=== PATIENT | female | born 1950 | race Caucasian/White ===

== ENCOUNTER 2020-09-30 09:18 | Outpatient (REF) | payer MEDICARE, SELFPAY ==
--- NOTE | 2020-09-30 | MM_ITS ---
EXAMINATION: MM SCREENING DIGITAL BREAST TOMOSYNTHESIS, BILATERAL CLINICAL INFORMATION: Screening. Asymptomatic. COMPARISON: Mammography: 02/24/2020 and studies dating back to 04/20/2012. TECHNIQUE: Digital breast tomosynthesis is performed in both the craniocaudal and mediolateral oblique views along with computer-aided detection (CAD). Synthesized 2D images are generated from the tomosynthesis. FINDINGS: There are scattered areas of fibroglandular density (ACR BI-RADS breast composition Category b). There is a stable region of architectural distortion seen within the superior aspect of the right breast. There is a stable region of postsurgical change within the upper outer aspect of the left breast as well as axillary surgery. Some skin thickening is seen within the left breast likely related to radiation therapy. No new abnormal dominant mass or suspicious grouping of microcalcifications identified. MM/MM tomosynthesis screening BI IMPRESSION: There are no significant changes from prior study. ASSESSMENT: BI-RADS 2: Benign. RECOMMENDATION: Routine annual mammography screening. This patient's information was entered into a reminder system with a target due date for their next mammogram.
== END 2020-09-30 09:19 | disposition home or self-care (01) ==
LOC: HO.MAMMO 09:18
PROVIDERS: PCP Internal Medicine; Visit Provider Internal Medicine
DX: Z12.31 Encounter for screening mammogram for malignant neoplasm of breast (principal)
CPT/HCPCS: 77063; 77067

== ENCOUNTER 2020-10-05 11:04 | Outpatient (REF) | payer MEDICARE, SELFPAY ==
[2020-10-05 12:14] LABS: Glucose Fasting 132 mg/dL (60-99)
[2020-10-05 12:26] LABS: Estimated Average Glucose 157 mg/dL; Hemoglobin A1c % 7.1 %
== END 2020-10-05 11:05 | disposition home or self-care (01) ==
LOC: HO.10HDL 11:04
PROVIDERS: Visit Provider Internal Medicine
DX: E11.9 Type 2 diabetes mellitus without complications (principal)
CPT/HCPCS: 36415; 82947; 83036

== ENCOUNTER 2021-02-05 09:36 | Outpatient (REF) | payer MEDICARE, SELFPAY ==
[2021-02-05 10:12] LABS: MANUAL DIFF FLAG NO
[2021-02-05 10:18] LABS: Basophils Absolute Auto 0.1 X10*3/uL (0.0-0.2); Basophils Percent Auto 0.9 % (0-2); Eosinophils Absolute Auto 0.1 X10*3/uL (0.0-0.4); Eosinophils Percent Auto 2.6 % (0-4); Hematocrit 37.5 % (37-47); Hemoglobin 12.5 g/dl (12.0-16.0); Imm Gran Abs Auto 0.01 X10*3/uL (0.00-0.03); Imm Gran Pct Auto 0.2 % (0.0-0.4); Lymphocytes Absolute Auto 1.4 X10*3/uL (1.2-4.9); Lymphocytes Percent Auto 26.1 % (20-40); Mean Corpuscular HGB Conc 33.3 g/dl (31.0-35.0); Mean Corpuscular Hemoglobin 29.3 pg (27.0-33.0); Mean Corpuscular Volume 87.8 fL (80-98); Mean Platelet Volume 9.9 fL (9.4-12.3); Monocytes Absolute Auto 0.4 X10*3/uL (0.1-1.2); Monocytes Percent Auto 8.1 % (2-11); Neutrophils Absolute Auto 3.4 X10*3/uL (2.0-8.3); Neutrophils Percent Auto 62.1 % (45-73); Platelet Count 258 X10*3/uL (160-400); Red Blood Count 4.27 X10*6/uL (4.20-5.50); Red Cell Distribution Width 13.6 % (11.0-16.0); White Blood Count 5.5 X10*3/uL (4.8-10.8)
[2021-02-05 10:29] LABS: Estimated Average Glucose 151 mg/dL; Hemoglobin A1c % 6.9 %
[2021-02-05 10:41] LABS: Glucose Urine UA NEG (NEG); Leukocyte Esterase Urine NEG (NEG); Nitrite Urine NEG (NEG); PH 5.5 (5.0-8.0); Specific Gravity - Urine >= 1.030 (1.005-1.025); Urine Blood NEG (NEG); Urine Ketones NEG (NEG); Urine Protein NEG (NEG-TRACE)
[2021-02-05 10:42] LABS: Appearance Urine HAZY; Color Urine YELLOW
[2021-02-05 10:53] LABS: Alanine Aminotransferase 13 U/L (0-31); Albumin Level 4.2 g/dL (3.5-5.0); Alkaline Phosphatase 74 U/L (39-117); Anion Gap 12 (12-20); Aspartate Amino Transferase 11 U/L (5-31); Bilirubin Total 1.1 mg/dL (0.0-1.0); Blood Urea Nitrogen 17 mg/dL (9-16); Calcium 9.6 mg/dL (8.4-10.2); Carbon Dioxide 27 mmol/L (22-29); Chloride 105 mmol/L (96-108); Cholesterol 142 mg/dL; Estimated Glomerular Filt Rate > 60; Glucose Fasting 117 mg/dL (60-99); HDL Cholesterol 47 mg/dL; LDL Cholesterol Calculated 71 mg/dl; Potassium 3.7 mmol/L (3.3-5.1); Sodium 140 mmol/L (135-145); Total Protein 6.8 g/dL (6.5-8.0); Triglycerides 124 mg/dL
[2021-02-05 11:15] LABS: Vitamin D 25-OH Total 61.4 ng/mL (>30)
[2021-02-05 11:28] LABS: Reflex LDLD? No
[2021-02-05 12:05] LABS: Creatinine Urine 199.37 mg/dL
== END 2021-02-05 09:37 | disposition home or self-care (01) ==
LOC: HO.LAB 09:36
PROVIDERS: PCP Internal Medicine; Visit Provider Internal Medicine
DX: Z00.00 Encounter for general adult medical examination without abnormal findings (principal); I10 Essential (primary) hypertension; E11.9 Type 2 diabetes mellitus without complications; E78.00 Pure hypercholesterolemia, unspecified; E55.9 Vitamin D deficiency, unspecified
CPT/HCPCS: 36415; 80053; 80061; 81003; 82043; 82306; 83036; 85025

== ENCOUNTER 2021-05-12 09:05 | Outpatient (REF) | payer MEDICARE, SELFPAY ==
--- NOTE | ~2021-05-12 | MM_ITS ---
EXAMINATION: BONE DENSITOMETRY CLINICAL INDICATION: Asymptomatic menopausal state. COMPARISON: Previous BD dated 09/19/2018 and baseline BD dated 09/06/2005. TECHNIQUE: Using a [employer] DXA System (software version: 13.1) manufactured by [employer], dual-energy x-ray absorptiometry was performed of the lumbar spine and left hip. The images are of good technical quality. Summary results are attached. FINDINGS: AP SPINE L1-L4: Current: BMD 1.323 g/cm2, Z-score 1.8, T-score 1.2, normal, 4.8% increase from previous, 7.5% increase from baseline (<5% change is not significant). Prior: BMD 1.263 g/cm2. Baseline: BMD 1.231 g/cm2. LEFT FEMUR, NECK: Current: BMD 1.068 g/cm2, Z-score 1.2, T-score 0.2, normal. Prior: BMD 1.041 g/cm2. Baseline: BMD 1.107 g/cm2. LEFT FEMUR, TOTAL: Current: BMD 1.156 g/cm2, Z-score 1.8, T-score 1.2, normal, 2.1% increase from previous, 10.4% decrease from baseline (<5% change is not significant). Prior: BMD 1.132 g/cm2. Baseline: BMD 1.290 g/cm2. IDENTIFIED RISK FACTORS: Menopause. HISTORY OF FRACTURE: None listed. MEDICATIONS: Calcium supplements or multivitamin, vitamin D. MM/XR DEXA axial skeleton IMPRESSION: 1. DIAGNOSIS: Normal bone density based on the lowest T-score value of 0.2 in the femoral neck applying World Health Organization criteria. 2. 10-YEAR FRACTURE RISK PREDICTION, FRAX: Major osteoporotic fracture (clinical spine, forearm, hip or shoulder) 6.2%. Hip fracture 0.2%. 3. Treatment Recommendations: NOF guidelines recommend consideration for treatment in postmenopausal women and men age 50 and older presenting with the following: -A hip or vertebral (clinical or morphometric) fracture. -T-score less than or equal to -2.5 at the femoral neck or spine after appropriate evaluation to exclude secondary causes. -Low bone mass at the hip or spine and a 10-year fracture probability by FRAX of greater than or equal to 3% for hip fracture or greater than or equal to 20% for major osteoporotic fracture based on the [place] adapted WHO algorithm. 4. Other Recommendations: All treatment decisions require clinical judgment and consideration of individual patient factors, including patient preferences, comorbidities, previous drug use, risk factors not captured in the FRAX model (e.g. frailty, falls, vitamin D deficiency, increased bone turnover, interval significant decline in bone density) and possible under or overestimation of fracture risk by FRAX. FUTURE SCAN RECOMMENDATION: People with diagnosed cases of osteoporosis or at high risk for fracture should have regular bone mineral density tests. For patients eligible for Medicare, routine testing is allowed once every 2 years. The testing frequency can be increased to one year for patients who have rapidly progressing disease, those who are receiving or discontinuing medical therapy to restore bone mass, or have additional risk factors.
== END 2021-05-12 09:06 | disposition home or self-care (01) ==
LOC: HO.MAMMO 09:05
PROVIDERS: Visit Provider Internal Medicine
DX: Z13.820 Encounter for screening for osteoporosis (principal); Z78.0 Asymptomatic menopausal state; Z79.899 Other long term (current) drug therapy
CPT/HCPCS: 77080

== ENCOUNTER 2021-07-12 10:21 | Outpatient (REF) | payer MEDICARE, SELFPAY ==
[2021-07-12 13:41] LABS: MANUAL DIFF FLAG NO
[2021-07-12 13:43] LABS: Basophils Absolute Auto 0.1 X10*3/uL (0.0-0.2); Basophils Percent Auto 1.2 % (0-2); Eosinophils Absolute Auto 0.3 X10*3/uL (0.0-0.4); Eosinophils Percent Auto 5.5 % (0-4); Hematocrit 40.7 % (37.0-47.0); Hemoglobin 13.8 g/dl (12.0-16.0); Imm Gran Abs Auto 0.02 X10*3/uL (0.00-0.03); Imm Gran Pct Auto 0.3 % (0.0-0.4); Lymphocytes Absolute Auto 1.2 X10*3/uL (1.2-4.9); Mean Corpuscular HGB Conc 33.9 g/dl (31.0-35.0); Mean Corpuscular Hemoglobin 30.1 pg (27.0-33.0); Mean Corpuscular Volume 88.7 fL (80.0-98.0); Mean Platelet Volume 10.3 fL (9.4-12.3); Monocytes Absolute Auto 0.7 X10*3/uL (0.1-1.2); Monocytes Percent Auto 11.2 % (2-11); Neutrophils Absolute Auto 3.54 x10*3/uL (2.0-8.3); Neutrophils Percent Auto 60.8 % (45-73); Platelet Count 273 X10*3/uL (160-400); Red Blood Count 4.59 X10*6/uL (4.20-5.50); Red Cell Distribution Width 13.5 % (11.0-16.0); White Blood Count 5.8 X10*3/uL (4.8-10.8)
[2021-07-12 14:01] LABS: Appearance Urine HAZY; Color Urine DK YELLOW; Glucose Urine UA NEG (NEG); Leukocyte Esterase Urine TRACE (NEG); Nitrite Urine NEG (NEG); Specific Gravity - Urine 1.025 (1.005-1.025); Urine Blood NEG (NEG); Urine Ketones 5 MG/DL (NEG); Urine Protein NEG (NEG-TRACE)
[2021-07-12 14:07] LABS: Alanine Aminotransferase 22 U/L (0-31); Albumin Level 4.3 g/dL (3.5-5.0); Alkaline Phosphatase 79 U/L (39-117); Anion Gap 14 (12-20); Aspartate Amino Transferase 16 U/L (5-31); Blood Urea Nitrogen 16 mg/dL (9-16); Calcium 9.6 mg/dL (8.4-10.2); Carbon Dioxide 26 mmol/L (22-29); Chloride 105 mmol/L (96-108); Cholesterol 146 mg/dL; Estimated Glomerular Filt Rate > 60; Glucose Fasting 128 mg/dL (60-99); HDL Cholesterol 46 mg/dL; LDL Cholesterol Calculated 74 mg/dl; Potassium 4.1 mmol/L (3.3-5.1); Sodium 141 mmol/L (135-145); Total Protein 6.9 g/dL (6.5-8.0); Triglycerides 132 mg/dL
[2021-07-12 14:08] LABS: Estimated Average Glucose 151 mg/dL; Hemoglobin A1c % 6.9 %
[2021-07-12 14:14] LABS: Microalbum/Creatinine Ratio Ur 4.7 ug/mg cr
[2021-07-12 14:19] LABS: Squamous Epithelial Cell Urine 2+ /LPF
[2021-07-12 14:20] LABS: Bacteria Urine 1+ /LPF; Mucus Urine 3+ /LPF; RBC Urine 0 /HPF (0)
== END 2021-07-12 10:22 | disposition home or self-care (01) ==
LOC: HO.10HDL 10:21
PROVIDERS: Visit Provider Internal Medicine
DX: Z00.00 Encounter for general adult medical examination without abnormal findings (principal); I10 Essential (primary) hypertension; E11.9 Type 2 diabetes mellitus without complications; E78.00 Pure hypercholesterolemia, unspecified; E55.9 Vitamin D deficiency, unspecified
CPT/HCPCS: 36415; 80053; 80061; 81001; 81003; 82043; 82306; 83036; 85025

== ENCOUNTER 2022-01-24 09:09 | Outpatient (REF) | payer MEDICARE, SELFPAY ==
[2022-01-24 10:45] LABS: Estimated Average Glucose 154 mg/dL
[2022-01-24 10:53] LABS: Alanine Aminotransferase 22 U/L (0-31); Albumin Level 4.1 g/dL (3.5-5.0); Alkaline Phosphatase 85 U/L (39-117); Aspartate Amino Transferase 15 U/L (5-31); Bilirubin Direct 0.4 mg/dL (0.0-0.5); Bilirubin Total 0.9 mg/dL (0.0-1.0); Cholesterol 159 mg/dL; Glucose Fasting 143 mg/dL (60-99); HDL Cholesterol 50 mg/dL; LDL Cholesterol Calculated 77 mg/dl; Total Protein 6.8 g/dL (6.5-8.0); Triglycerides 160 mg/dL
[2022-01-24 10:57] LABS: Reflex LDLD? No
== END 2022-01-24 09:10 | disposition home or self-care (01) ==
LOC: HO.LAB 09:09
PROVIDERS: PCP Internal Medicine; Visit Provider Internal Medicine
DX: E11.9 Type 2 diabetes mellitus without complications (principal); E78.00 Pure hypercholesterolemia, unspecified
CPT/HCPCS: 36415; 80061; 80076; 82947; 83036

== ENCOUNTER 2022-01-26 11:58 | Day surgery (SDC) | payer MEDICARE, SELFPAY ==
[2022-01-21 13:42] VITALS: BMI 35.9
--- NOTE | 2022-01-25 10:30 | P.CONAN_ITS ---
Documented by User: Oralia Hodge NP 01/25/22 10:31 HPI - Anesthesia Eval Consult details Narrative: 71yo F for Colonoscopy [facility] Past Medical History Medical History Breast cancer DM type 2 (diabetes mellitus, type 2) HTN (hypertension) Surgical History Surgical History History of partial mastectomy of left breast Hx of colonoscopy Social History Social History Patient Tobacco Use Status: Never used Tobacco Use of substances other than those prescribed or required for medical reasons: No Are you DNR?: No Advance Directives: No Advance Directives Information Provided: Yes Meds Allergies Allergy/AdvReac Type Severity Reaction Status Date / Time No Known Allergies Allergy Verified 01/21/22 13:39 Home Medications Medication Instructions Recorded Confirmed Last Taken Type aspirin 81 mg tablet,delayed 81 mg PO DAILY 01/21/22 01/26/22 01/22/22 History release atorvastatin 20 mg tablet 1 tab PO DAILY 01/21/22 01/21/22 Unknown History lisinopril 10 1 tab PO DAILY 01/21/22 01/21/22 Unknown History mg-hydrochlorothiazide 12.5 mg tablet metformin 500 mg tablet 500 mg PO BID 01/21/22 01/21/22 Unknown History multivitamin 1 tab PO DAILY 01/21/22 01/21/22 Unknown History Exam Exam Date and Time: January 25, 2022 1030 Height,Weight and Vital Signs: Height 5 ft 5 in Weight 97.976 kg Assessment and Plan Assessment Anesthesia Assessment: Chart Reviewed Documented by User: Kel Bowman MD 01/26/22 13:09 [facility] Past Medical History Medical History Breast cancer DM type 2 (diabetes mellitus, type 2) HTN (hypertension) Family History Family history of problems with anesthesia: No Surgical History Surgical History History of partial mastectomy of left breast Hx of colonoscopy History of Problems with Anesthesia: No Social History Social History Patient Tobacco Use Status: Never used Tobacco Use of substances other than those prescribed or required for medical reasons: No Are you DNR?: No Advance Directives: No Advance Directives Information Provided: Yes Meds Allergies Allergy/AdvReac Type Severity Reaction Status Date / Time No Known Allergies Allergy Verified 01/21/22 13:39 Home Medications Medication Instructions Recorded Confirmed Last Taken Type aspirin 81 mg tablet,delayed 81 mg PO DAILY 01/21/22 01/26/22 01/22/22 History release atorvastatin 20 mg tablet 1 tab PO DAILY 01/21/22 01/21/22 Unknown History lisinopril 10 1 tab PO DAILY 01/21/22 01/21/22 Unknown History mg-hydrochlorothiazide 12.5 mg tablet metformin 500 mg tablet 500 mg PO BID 01/21/22 01/21/22 Unknown History multivitamin 1 tab PO DAILY 01/21/22 01/21/22 Unknown History Exam Airway Mallampati Class: II TM Dist: >3cm Neck ROM: Full Loose/Missing/Broken Teeth: No Heart: [id number] Lungs: cta b/l Assessment and Plan Assessment Anesthesia Assessment: Anesthesia Plan Discussed Final Anesthetic Review Family History of Problems with Anesthesia: No History of Problems with Anesthesia: No NPO: Yes ASA Class: III Final Preanesthetic Review: No Changes in Pt Med Stat, Meds/Allgs Chart Reviewed, Consent Obtained/Reviewed and Anes Risks/Benef Reviewed Patient Risk: Intermediate Procedure Risk: Intermediate Assessment/Block/Sedation in SS: Assess/Block/Sedation-SS Anesthetic Plan Anesthetic Plan: MAC: and Agree w/ Assess. and Plan Disposition: Standard PACU
[2022-01-26 12:34] VITALS: BMI 36.8
[2022-01-26 12:40] VITALS: BP 139/72; PULSE 88; RESP 16; TEMP 36.7; O2SAT 95
[2022-01-26] MEDS: Lactated Ringers 1,000 ML 100 ML IVCONT (12:45)
[2022-01-26 12:48] LABS: Glucose, Whole Blood 100 mg/dL (60-115)
--- NOTE | 2022-01-26 12:56 | PC.NURSE ---
Fleets enema given ( poor prep results reported by patient). Rturns from fleets are liquid and yellow/clear
[2022-01-26] MEDS: Sodium Phosphate,Mono-Dibasic 133 ML ENEMA PR (13:10)
--- NOTE | 2022-01-26 13:11 | MHC.SHP ---
Pre-Procedural Eval Section A Date of Service: 01/26/22 Section B Chief Complaint: screening Details of Present Illness: see h&p Relevant Family History (Specify if Yes): No Relevant Social History: None Present Medications: see Short Stay Collaborative assessment Medical History: No relevant PMH History of Previous Operations: No relevant previous surgery Allergies: Allergies Allergy/AdvReac Type Severity Reaction Status Date / Time No Known Allergies Allergy Verified 01/21/22 13:39 Review of Systems Sugical H&P ROS: Negative: Constitution, Cardiovascular, Respiratory, Neurological, Psychiatric, Hem-Onc, Allergic/Immunologic, Gastrointestinal, Genitourinary, Musculoskeletal, Integumentary, Endocrine and Eyes/Ears/Nose/Throat Exam Surgical H&P Exam: Normal: HEENT, Normal: Heart, Normal: Lungs, Normal: Extremities, Normal: Abdomen, Normal: Skin and Normal: Neurological Plan Diagnosis/Plan: Unchanged I have reviewed the history and physical and performed a pertinent physical examination on my patient. No changes have occurred unless specified.
--- NOTE | 2022-01-26 13:36 | HO.ANESPROP2 ---
[facility] Past Medical History Medical History Breast cancer DM type 2 (diabetes mellitus, type 2) HTN (hypertension) Family History Family history of problems with anesthesia: No Surgical History Surgical History History of partial mastectomy of left breast Hx of colonoscopy History of Problems with Anesthesia: No Social History Social History Patient Tobacco Use Status: Never used Tobacco Use of substances other than those prescribed or required for medical reasons: No Are you DNR?: No Advance Directives: No Advance Directives Information Provided: Yes Meds Allergies Allergy/AdvReac Type Severity Reaction Status Date / Time No Known Allergies Allergy Verified 01/21/22 13:39 Active Medications: Current Medications Acetaminophen (Acetaminophen 325 Mg Tablet) 650 mg PO ONCE PRN PRN Reason: Pain, Mild (Pain Scale 1-3) Lactated Ringer's (Lr) 1,000 mls @ 100 mls/hr IVCONT .Q10H ALEJANDRO Last Admin: 01/26/22 12:45 Dose: 100 mls/hr Documented by: Ondansetron HCl (Ondansetron Hcl 4 Mg/2 Ml Vial) 4 mg IVPUSH ONCE PRN PRN Reason: Nausea and Vomiting Home Medications Medication Instructions Recorded Confirmed Last Taken Type aspirin 81 mg tablet,delayed 81 mg PO DAILY 01/21/22 01/26/22 01/22/22 History release atorvastatin 20 mg tablet 1 tab PO DAILY 01/21/22 01/21/22 Unknown History lisinopril 10 1 tab PO DAILY 01/21/22 01/21/22 Unknown History mg-hydrochlorothiazide 12.5 mg tablet metformin 500 mg tablet 500 mg PO BID 01/21/22 01/21/22 Unknown History multivitamin 1 tab PO DAILY 01/21/22 01/21/22 Unknown History Exam Exam Date and Time: January 26, 2022 1336 Height,Weight and Vital Signs: Height 5 ft 4 in Weight 97.522 kg Last Vital Signs Temp 98.0 F 01/26/22 12:40 Pulse 88 01/26/22 12:40 Resp 16 01/26/22 12:40 BP 139/72 01/26/22 12:40 Pulse Ox 95 01/26/22 12:40 Pertinent Lab Results Pertinent Lab Results: Laboratory Tests 01/26/22 12:40 POC Glucose 100 Airway Mallampati Class: III TM Dist: >3cm Neck ROM: Full Assessment and Plan Final Anesthetic Review Family History of Problems with Anesthesia: No History of Problems with Anesthesia: No Final Preanesthetic Review: No Changes in Pt Med Stat, Meds/Allgs Chart Reviewed, Consent Obtained/Reviewed and Anes Risks/Benef Reviewed Patient Risk: Low Procedure Risk: Low Anesthetic Plan Anesthetic Plan: MAC: Disposition: Standard PACU
--- NOTE | 2022-01-26 13:56 | PM.OP ---
Brief Operative Note Date of Service: 01/26/22 Pre-op diagnosis: screening Post-op diagnosis: same (colon polyp) Procedure: colonoscopy Surgeon: Suraj Cabrera Anesthesia: MAC Was an Transportation Superintendent used for this Procedure?: No Estimated blood loss (mL): 2 Pathology: other (polyps x4) Condition: stable Disposition: PACU
[2022-01-26 14:03] VITALS: BP 150/90; PULSE 92; RESP 16; TEMP 37.2; O2SAT 95
[2022-01-26 14:06] VITALS: BP 120/54
[2022-01-26 14:18] VITALS: BP 122/65; PULSE 63; RESP 16; O2SAT 97
[2022-01-26 14:33] VITALS: BP 129/53; PULSE 66; RESP 16; O2SAT 98
[2022-01-26 14:55] VITALS: BP 133/55; PULSE 63; RESP 16; TEMP 36.9; O2SAT 95
--- NOTE | 2022-01-27 02:26 | OP_ITS ---
SURGEON: Suraj Cabrera MD INDICATIONS: Colon cancer screening and prior history of adenomatous colon polyps. PREOPERATIVE DIAGNOSIS: POSTOPERATIVE DIAGNOSIS: PROCEDURE PERFORMED: Colonoscopy to the terminal ileum with snare polypectomy and biopsy. ESTIMATED BLOOD LOSS: COMPLICATIONS: ANESTHESIA: ASSISTANTS: SPECIMENS: MEDICATIONS: Monitored anesthesia care. DESCRIPTION OF PROCEDURE: History and physical were performed. The risks and benefits of the procedure were explained to the patient. Informed consent was obtained. The patient was placed in the left lateral decubitus position. A digital rectal exam was performed, was found to be normal. The Olympus pediatric video colonoscope was introduced into the rectum and advanced to the cecum without difficulty. The cecum was identified by transillumination, palpation, and identification of ileocecal valve. Examination was performed. The scope was removed. She tolerated the procedure well, returned to recovery in stable condition. FINDINGS: The terminal ileum was normal. The visualized colonic mucosa was normal. The quality of the prep was good. Four polyps were identified and removed with a combination of snare polypectomy and biopsy forceps. These were located at 75 cm, 45 cm, and two in the rectum, none were bigger than 6 mm. Retroflexed examination showed small internal hemorrhoids. Moderate sigmoid diverticulosis was noted. IMPRESSION: Colon polyps. RECOMMENDATION: Follow up the biopsy results. MD GISELA Laguna/MICHAEL / [id number]
== END 2022-01-26 16:09 | disposition home or self-care (01) ==
PROVIDERS: PCP Internal Medicine; Visit Provider Internal Medicine Gastroenterology
PROC: 0DJD8ZZ Inspection of Lower Intestinal Tract, Via Natural or Artificial Opening Endoscopic (ICD-10-PCS; CPT 45378; principal; 2022-01-26 13:00)
DX: Z12.11 Encounter for screening for malignant neoplasm of colon (principal); Z86.010 Personal history of colon polyps; D12.4 Benign neoplasm of descending colon; D12.8 Benign neoplasm of rectum; K63.5 Polyp of colon; K57.30 Diverticulosis of large intestine without perforation or abscess without bleeding; K64.8 Other hemorrhoids; I10 Essential (primary) hypertension; E11.9 Type 2 diabetes mellitus without complications; Z85.3 Personal history of malignant neoplasm of breast; Z79.84 Long term (current) use of oral hypoglycemic drugs; Z79.899 Other long term (current) drug therapy; Z79.82 Long term (current) use of aspirin
CPT/HCPCS: 45385; 45380; 82947; 88305

== ENCOUNTER 2022-07-19 10:30 | Outpatient (REF) | payer MEDICARE, SELFPAY ==
[2022-07-19 13:51] LABS: MANUAL DIFF FLAG NO
[2022-07-19 13:59] LABS: Basophils Absolute Auto 0.1 X10*3/uL (0.0-0.2); Basophils Percent Auto 1.1 % (0-2); Eosinophils Absolute Auto 0.2 X10*3/uL (0.0-0.4); Eosinophils Percent Auto 3.2 % (0-4); Hematocrit 39.1 % (37.0-47.0); Hemoglobin 13.2 g/dl (12.0-16.0); Imm Gran Abs Auto 0.01 X10*3/uL (0.00-0.03); Imm Gran Pct Auto 0.2 % (0.0-0.4); Lymphocytes Absolute Auto 1.4 X10*3/uL (1.2-4.9); Lymphocytes Percent Auto 24.2 % (20-40); Mean Corpuscular HGB Conc 33.8 g/dl (31.0-35.0); Mean Corpuscular Hemoglobin 29.6 pg (27.0-33.0); Mean Corpuscular Volume 87.7 fL (80.0-98.0); Mean Platelet Volume 10.6 fL (9.4-12.3); Monocytes Absolute Auto 0.4 X10*3/uL (0.1-1.2); Monocytes Percent Auto 7.6 % (2-11); Neutrophils Absolute Auto 3.6 x10*3/uL (2.0-8.3); Neutrophils Percent Auto 63.7 % (45-73); Platelet Count 276 X10*3/uL (160-400); Red Blood Count 4.46 X10*6/uL (4.20-5.50); Red Cell Distribution Width 13.2 % (11.0-16.0); White Blood Count 5.7 X10*3/uL (4.8-10.8)
[2022-07-19 14:02] LABS: Appearance Urine Cloudy; Color Urine Dark Yellow; Glucose Urine UA Negative (Negative); Leukocyte Esterase Urine Small (1+) (Negative); Nitrite Urine Negative (Negative); PH 5.5 (5.0-9.0); Specific Gravity - Urine >= 1.030 (1.005-1.025); UMIC TRIGGER UA YES; Urine Blood Negative (Negative); Urine Ketones Trace mg/dL (Negative); Urine Protein Trace mg/dL (Neg-Trace)
[2022-07-19 14:17] LABS: Bacteria Urine 3+ (None Seen); Squamous Epithelial Cell Urine >20 /HPF (0-2)
[2022-07-19 14:30] LABS: Creatinine Urine 358.75 mg/dL; Microalbum/Creatinine Ratio Ur 7.8 ug/mg cr
[2022-07-19 14:32] LABS: Estimated Average Glucose 157 mg/dL; Hemoglobin A1c % 7.1 %
[2022-07-19 14:40] LABS: Alanine Aminotransferase 22 U/L (0-31); Albumin Level 4.2 g/dL (3.5-5.0); Alkaline Phosphatase 83 U/L (39-117); Anion Gap 14 (12-20); Aspartate Amino Transferase 17 U/L (5-31); Bilirubin Total 0.8 mg/dL (0.0-1.0); Blood Urea Nitrogen 18 mg/dL (9-16); Calcium 9.8 mg/dL (8.4-10.2); Carbon Dioxide 25 mmol/L (22-29); Chloride 105 mmol/L (96-108); Cholesterol 161 mg/dL; Estimated Glomerular Filt Rate > 60; Glucose Fasting 136 mg/dL (60-99); HDL Cholesterol 54 mg/dL; LDL Cholesterol Calculated 84 mg/dl; Potassium 4.3 mmol/L (3.3-5.1); Sodium 140 mmol/L (135-145); Triglycerides 115 mg/dL; Vitamin D 25-OH Total 53.9 ng/mL (>30)
== END 2022-07-19 10:31 | disposition home or self-care (01) ==
LOC: HO.10HDL 10:30
PROVIDERS: Visit Provider Internal Medicine
DX: Z00.00 Encounter for general adult medical examination without abnormal findings (principal); R31.9 Hematuria, unspecified; I10 Essential (primary) hypertension; E11.9 Type 2 diabetes mellitus without complications; E78.00 Pure hypercholesterolemia, unspecified; E55.9 Vitamin D deficiency, unspecified
CPT/HCPCS: 36415; 80053; 80061; 81001; 82043; 82306; 83036; 85025; 87086

== ENCOUNTER 2022-08-16 11:03 | Outpatient (REF) | payer MEDICARE, SELFPAY ==
--- NOTE | ~2022-08-16 | MM_ITS ---
EXAMINATION: MM SCREENING DIGITAL BREAST TOMOSYNTHESIS, BILATERAL CLINICAL INFORMATION: Screening. Asymptomatic. Prior history left breast cancer, 2000. COMPARISON: Mammography: 09/30/2020 and prior exams dating back to 09/17/2014 TECHNIQUE: Digital breast tomosynthesis is performed in both the craniocaudal and mediolateral oblique views along with computer-aided detection). Synthesized 2D images are generated from the tomosynthesis. Additional exaggerated left CC view is provided. FINDINGS: There are scattered areas of fibroglandular density (ACR BI-RADS breast composition Category b). Parenchymal pattern is similar to prior studies. There are post therapy changes left breast with reduced breast size and stable scarring. Scattered bilateral minor parenchymal asymmetries are similar to prior exams. No developing density or architectural abnormality or abnormal calcifications. No significant changes. MM/MM tomosynthesis screening BI IMPRESSION: No mammographic evidence of malignancy. ASSESSMENT: BI-RADS 2: Benign RECOMMENDATION: Routine annual mammography screening. This patient's information was entered into a reminder system with a target due date for their next mammogram.
== END 2022-08-16 11:04 | disposition home or self-care (01) ==
LOC: HO.MAMMO 11:03
PROVIDERS: PCP Internal Medicine; Visit Provider Internal Medicine
DX: Z12.31 Encounter for screening mammogram for malignant neoplasm of breast (principal)
CPT/HCPCS: 77063; 77067

== ENCOUNTER 2022-08-23 | Outpatient (REF) | payer MEDICARE, SELFPAY ==
--- NOTE | ~2022-08-23 | XR_ITS ---
EXAMINATION: XR KNEES, STANDING AP XR KNEE, RIGHT XR KNEE, LEFT CLINICAL INFORMATION: Bilateral knee pain. COMPARISON: None TECHNIQUE: Standing AP view of both knees is performed. Each knee is also imaged in lateral and axial patella views. FINDINGS: Right: There is osteoarthritis involving the medial knee joint compartment and lateral patellofemoral joint with joint narrowing and moderate osteophytes medial femoral condyle and medial tibial plateau. No erosive changes or chondrocalcinosis. No suprapatellar effusion. There is mild spurring at the quadriceps insertion patella and origin patellar tendon. No lateralization or definite tilting patella. Left: There is prominent narrowing medial knee joint compartment with moderate osteophytes medial femoral condyle and medial tibial plateau. No visible erosive change or chondrocalcinosis. Severity is greater than that on the right. There is also moderate narrowing lateral patellofemoral joint. There may be a small suprapatellar effusion. There is spurring at the quadriceps insertion patella and origin patellar tendon. No lateralization or definite tilting patella. XR/XR knee LT 2V IMPRESSION: -Osteoarthritis medial knee joint compartment, greater on left. Question small left suprapatellar effusion. -Osteoarthritis lateral patellofemoral joints. -No erosive change or chondrocalcinosis.
--- NOTE | ~2022-08-23 | XR_ITS ---
EXAMINATION: XR KNEES, STANDING AP XR KNEE, RIGHT XR KNEE, LEFT CLINICAL INFORMATION: Bilateral knee pain. COMPARISON: None TECHNIQUE: Standing AP view of both knees is performed. Each knee is also imaged in lateral and axial patella views. FINDINGS: Right: There is osteoarthritis involving the medial knee joint compartment and lateral patellofemoral joint with joint narrowing and moderate osteophytes medial femoral condyle and medial tibial plateau. No erosive changes or chondrocalcinosis. No suprapatellar effusion. There is mild spurring at the quadriceps insertion patella and origin patellar tendon. No lateralization or definite tilting patella. Left: There is prominent narrowing medial knee joint compartment with moderate osteophytes medial femoral condyle and medial tibial plateau. No visible erosive change or chondrocalcinosis. Severity is greater than that on the right. There is also moderate narrowing lateral patellofemoral joint. There may be a small suprapatellar effusion. There is spurring at the quadriceps insertion patella and origin patellar tendon. No lateralization or definite tilting patella. XR/XR knee standing BI IMPRESSION: -Osteoarthritis medial knee joint compartment, greater on left. Question small left suprapatellar effusion. -Osteoarthritis lateral patellofemoral joints. -No erosive change or chondrocalcinosis.
--- NOTE | ~2022-08-23 | XR_ITS ---
EXAMINATION: XR KNEES, STANDING AP XR KNEE, RIGHT XR KNEE, LEFT CLINICAL INFORMATION: Bilateral knee pain. COMPARISON: None TECHNIQUE: Standing AP view of both knees is performed. Each knee is also imaged in lateral and axial patella views. FINDINGS: Right: There is osteoarthritis involving the medial knee joint compartment and lateral patellofemoral joint with joint narrowing and moderate osteophytes medial femoral condyle and medial tibial plateau. No erosive changes or chondrocalcinosis. No suprapatellar effusion. There is mild spurring at the quadriceps insertion patella and origin patellar tendon. No lateralization or definite tilting patella. Left: There is prominent narrowing medial knee joint compartment with moderate osteophytes medial femoral condyle and medial tibial plateau. No visible erosive change or chondrocalcinosis. Severity is greater than that on the right. There is also moderate narrowing lateral patellofemoral joint. There may be a small suprapatellar effusion. There is spurring at the quadriceps insertion patella and origin patellar tendon. No lateralization or definite tilting patella. XR/XR knee RT 2V IMPRESSION: -Osteoarthritis medial knee joint compartment, greater on left. Question small left suprapatellar effusion. -Osteoarthritis lateral patellofemoral joints. -No erosive change or chondrocalcinosis.
== END 2022-08-23 00:01 ==
LOC: HO.HOSX
PROVIDERS: Visit Provider Physician Assistant
DX: M17.0 Bilateral primary osteoarthritis of knee (principal); E11.9 Type 2 diabetes mellitus without complications
CPT/HCPCS: 20610; 73560; 73565; 99212; J1020

== ENCOUNTER 2022-09-14 12:00 | Outpatient (RCR) | payer MEDICARE, SELFPAY ==
--- NOTE | 2022-09-01 17:23 | MHC.PT.EP ---
[facility] [place] Office [place] Office [place] Office [address] Jose Victor [address] [phone] F: [phone] F: [phone] F: [phone] F: [phone] Physical Therapy Plan of Care Date of Evaluation: Date of Surgery: N/A Diagnosis: bilateral primary osteoarthritis of knee Assessment: Pt is a 71yo F who presents to PT with B knee pain, L > R for years. Pt presents to PT with current impairments in pain, decreased ROM, decreased quad strength, decreased hip/glute strength, decreased core stabilization, decreased muscle length, decreased balance and impaired gait. She is limited functionally by prolonged standing, prolonged walking, stair navigation, squatting and kneeling. She is an excellent candidate for skilled PT in order to address current impairments to facilitate return to PLOF. She is recommended to be seen 1x/week for 5 weeks and will be reassessed at that time. Frequency and Duration: The patient will be seen 1x/week for 5 weeks Short Term Goals: Pt will be I with HEP to promote self management of symptoms Pt will improve B glute med strength by 1/2 grade Fdc Goals: Pt will tolerate standing and walking > 30 min with minimal to no pain Pt will demonstrate ability to squat and pick object off of the floor with minimal to pain Pt will demonstrate improvements in function as evidenced by statistically significant improvement in LEFI outcome measure Treatment Plan: Modalities to reduce pain, spasms and effusion. Manual therapy to restore motion and function. Therapeutic exercise to improve strength and flexibility. Neuromuscular re-education for posture and balance. Therapeutic activities to return to functional activities of daily living. Electronically signed by: Radha Pino, PT, DPT Please sign and return to therapist. Thank you for your referral.
--- NOTE | 2022-09-20 13:44 | MHC.PT.DC ---
[facility] [place] Office [place] Office [place] Office [address] Jose Victor [address] [phone] F: [phone] F: [phone] F: [phone] F: [phone] Physical Therapy Discharge Report Diagnosis: bilateral primary osteoarthritis of knee Date of Surgery: N/A Date of Evaluation: 09/01/22 Date of Discharge: 09/20/22 Treatments to Date: 3 Cancellations to Date: No Shows to Date: Discharge Status: Improved Function Independent with HEP Discharge Summary: Pt was seen for PT from 09/01/22-09/14/22. She requested to self D/C from PT at last attended session due to high co pay and improvement in symptoms. Overall she had a decrease in bilateral knee pain. She is I with HEP and was provided with printed, updated copy of HEP at last attended session. She reported no further questions for PT at time of D/C. Pt is being D/C from skilled PT at this time per her request. Electronically signed by: Radha Pino, PT, DPT Please sign and return to therapist. Thank you for your referral.
== END 2022-09-20 13:44 | disposition home or self-care (01) ==
LOC: HO.PT 12:00
PROVIDERS: PCP Internal Medicine; Visit Provider Physician Assistant
DX: M17.0 Bilateral primary osteoarthritis of knee (principal)
CPT/HCPCS: 97110; 97162

== ENCOUNTER 2022-09-27 10:03 | Outpatient (REF) | payer MEDICARE, SELFPAY ==
--- NOTE | ~2022-09-27 | XR_ITS ---
EXAMINATION: XR ANKLE, RIGHT CLINICAL INFORMATION: Pain COMPARISON: None TECHNIQUE: AP, lateral, and mortise views of the right ankle. FINDINGS: No acute fracture or dislocation. Ankle mortise is preserved. Calcaneal enthesopathy. XR/XR ankle RT min 3V IMPRESSION: Calcaneal enthesopathy.
--- NOTE | ~2022-09-27 | XR_ITS ---
EXAMINATION: XR ANKLE, LEFT CLINICAL INFORMATION: Pain left ankle and joints. COMPARISON: None. TECHNIQUE: AP, lateral, and mortise views of the left ankle. FINDINGS: Small enthesophytes are seen along the tip of medial malleolus from old injury. No acute fracture or dislocation seen. The ankle mortise and subtalar joints are normal. Small calcaneal and retrocalcaneal enthesophytes are seen. There is mild dorsal intertarsal spurring. The soft tissues are normal. XR/XR ankle LT min 3V IMPRESSION: No acute fracture or dislocation. Small enthesophytes along the tip of medial malleolus. Small calcaneal heel and retrocalcaneal enthesophytes. There is mild dorsal intertarsal spurring.
== END 2022-09-27 10:04 | disposition home or self-care (01) ==
LOC: HO.HOSX 10:03
PROVIDERS: Visit Provider Physician Assistant
DX: M25.571 Pain in right ankle and joints of right foot (principal); M25.572 Pain in left ankle and joints of left foot; G89.29 Other chronic pain
CPT/HCPCS: 73610; 99212

== ENCOUNTER 2023-01-16 09:24 | Outpatient (REF) | payer MEDICARE, SELFPAY ==
[2023-01-16 10:59] LABS: Estimated Average Glucose 177 mg/dL; Hemoglobin A1c % 7.8 %
[2023-01-16 11:09] LABS: Alanine Aminotransferase 22 U/L (0-31); Albumin Level 4.2 g/dL (3.5-5.0); Alkaline Phosphatase 92 U/L (39-117); Aspartate Amino Transferase 13 U/L (5-31); Bilirubin Direct 0.3 mg/dL (0.0-0.5); Bilirubin Total 0.8 mg/dL (0.0-1.0); Cholesterol 153 mg/dL; Glucose Fasting 162 mg/dL (60-99); HDL Cholesterol 52 mg/dL; LDL Cholesterol Calculated 78 mg/dl; Total Protein 6.8 g/dL (6.5-8.0); Triglycerides 119 mg/dL
[2023-01-16 12:37] LABS: Reflex LDLD? No
== END 2023-01-16 09:25 | disposition home or self-care (01) ==
LOC: HO.10HDL 09:24
PROVIDERS: Visit Provider Internal Medicine
DX: E11.9 Type 2 diabetes mellitus without complications (principal); E78.00 Pure hypercholesterolemia, unspecified
CPT/HCPCS: 36415; 80061; 80076; 82947; 83036

== ENCOUNTER → 2023-01-24 11:20 | Outpatient (BNVA) | payer MEDICARE, SELFPAY | PROVIDERS: PCP Internal Medicine; Visit Provider Physician Assistant | DX: M17.12 Unilateral primary osteoarthritis, left knee (principal); M17.11 Unilateral primary osteoarthritis, right knee; E11.9 Type 2 diabetes mellitus without complications | CPT/HCPCS: 20610; 99212; J1040 ==

== ENCOUNTER 2023-07-20 10:19 | Outpatient (REF) | payer MEDICARE, SELFPAY ==
[2023-07-20 10:52] LABS: MANUAL DIFF FLAG NO
[2023-07-20 10:56] LABS: Basophils Absolute Auto 0.1 X10*3/uL (0.0-0.2); Basophils Percent Auto 1.1 % (0-2); Eosinophils Absolute Auto 0.2 X10*3/uL (0.0-0.4); Eosinophils Percent Auto 2.8 % (0-4); Hematocrit 42.3 % (37.0-47.0); Hemoglobin 14.3 g/dl (12.0-16.0); Imm Gran Abs Auto 0.01 X10*3/uL (0.00-0.03); Imm Gran Pct Auto 0.2 % (0.0-0.4); Lymphocytes Absolute Auto 1.1 X10*3/uL (1.2-4.9); Lymphocytes Percent Auto 19.8 % (20-40); Mean Corpuscular HGB Conc 33.8 g/dl (31.0-35.0); Mean Corpuscular Hemoglobin 29.6 pg (27.0-33.0); Mean Corpuscular Volume 87.6 fL (80.0-98.0); Mean Platelet Volume 10.3 fL (9.4-12.3); Monocytes Absolute Auto 0.4 X10*3/uL (0.1-1.2); Monocytes Percent Auto 8.1 % (2-11); Neutrophils Absolute Auto 3.7 x10*3/uL (2.0-8.3); Platelet Count 275 X10*3/uL (160-400); Red Blood Count 4.83 X10*6/uL (4.20-5.50); Red Cell Distribution Width 12.8 % (11.0-16.0); White Blood Count 5.4 X10*3/uL (4.8-10.8)
[2023-07-20 10:57] LABS: Appearance Urine Clear; Color Urine Dark Yellow; Glucose Urine UA Negative (Negative); Leukocyte Esterase Urine Small (1+) (Negative); Nitrite Urine Negative (Negative); UMIC TRIGGER UACC YES; Urine Blood Negative (Negative); Urine Ketones Trace mg/dL (Negative); Urine Protein Negative (Neg-Trace)
[2023-07-20 11:06] LABS: Bacteria Urine Trace (None Seen); Hyaline Casts Urine 0-2 /LPF (0-2); RBC Urine 0-2 /HPF (0-2); UACC Culture Trigger YES; WBC Urine 0-5 /HPF (0-5)
[2023-07-20 11:17] LABS: Alanine Aminotransferase 12 U/L (0-31); Albumin Level 4.2 g/dL (3.5-5.0); Alkaline Phosphatase 86 U/L (39-117); Anion Gap 13 (12-20); Aspartate Amino Transferase 13 U/L (5-31); Bilirubin Total 0.9 mg/dL (0.0-1.0); Blood Urea Nitrogen 12 mg/dL (9-16); Calcium 10.1 mg/dL (8.4-10.2); Carbon Dioxide 27 mmol/L (22-29); Chloride 107 mmol/L (96-108); Cholesterol 157 mg/dL (<200); Estimated Glomerular Filt Rate > 60; Glucose Random 143 mg/dL (60-115); HDL Cholesterol 47 mg/dL (>40); LDL Cholesterol Calculated 80 mg/dL (<100); Potassium 4.1 mmol/L (3.3-5.1); Sodium 143 mmol/L (135-145); Total Protein 7.3 g/dL (6.5-8.0); Triglycerides 153 mg/dL (<150)
[2023-07-20 11:18] LABS: Estimated Average Glucose 157 mg/dL; Hemoglobin A1c % 7.1 % (<6.0)
[2023-07-20 11:47] LABS: Vitamin D 25-OH Total 48.6 ng/mL (>30)
[2023-07-20 12:02] LABS: Creatinine Urine 263.72 mg/dL; Microalbum/Creatinine Ratio Ur 4.5 ug/mg cr (<30)
== END 2023-07-20 10:20 | disposition home or self-care (01) ==
LOC: HO.10HDL 10:19
PROVIDERS: Visit Provider Internal Medicine
DX: Z00.00 Encounter for general adult medical examination without abnormal findings (principal); I10 Essential (primary) hypertension; E11.9 Type 2 diabetes mellitus without complications; E55.9 Vitamin D deficiency, unspecified; E78.00 Pure hypercholesterolemia, unspecified; R82.90 Unspecified abnormal findings in urine
CPT/HCPCS: 36415; 80053; 80061; 81001; 82043; 82306; 82570; 83036; 85025; 87086

== ENCOUNTER 2023-08-22 10:35 | Outpatient (REF) | payer MEDICARE, SELFPAY ==
--- NOTE | ~2023-08-22 | MM_ITS ---
EXAMINATION: MM SCREENING DIGITAL BREAST TOMOSYNTHESIS, BILATERAL CLINICAL INFORMATION: Screening. Asymptomatic. The patient has a history of left breast cancer treatment from 2000. COMPARISON: Mammography: This study is compared with prior exams dating back to 2019. TECHNIQUE: Digital breast tomosynthesis is performed in both the craniocaudal and mediolateral oblique views along with computer-aided detection (CAD). Synthesized 2D images are generated from the tomosynthesis. FINDINGS: There are scattered areas of fibroglandular density (ACR BI-RADS breast composition Category b). There are no significant masses, abnormal calcifications, or other abnormalities. There are postsurgical changes and benign calcifications in the upper outer quadrant of the left breast from prior surgery. MM/MM tomosynthesis screening BI IMPRESSION: No mammographic evidence of malignancy. ASSESSMENT: BI-RADS BI-RADS 2 - Benign Findings RECOMMENDATION: Routine annual mammography screening. 1 year F/U This examination should not preclude the clinical evaluation of a suspicious palpable abnormality. This patient's information was entered into a reminder system with a target due date for their next mammogram.
== END 2023-08-22 10:36 | disposition home or self-care (01) ==
LOC: HO.MAMMO 10:35
PROVIDERS: PCP Internal Medicine; Visit Provider Internal Medicine
DX: Z12.31 Encounter for screening mammogram for malignant neoplasm of breast (principal)
CPT/HCPCS: 77063; 77067

== ENCOUNTER → 2023-08-22 11:00 | Outpatient (BNV) | payer MEDICARE, SELFPAY | PROVIDERS: PCP Internal Medicine; Visit Provider Radiology Diagnostic Radiology | DX: Z12.31 Encounter for screening mammogram for malignant neoplasm of breast (principal) | CPT/HCPCS: 77063; 77067 ==

== ENCOUNTER 2024-01-30 13:44 | Outpatient (AMB) | payer MEDICARE, SELFPAY ==
--- NOTE | 2024-01-30 14:02 | A.OFFVIS_ITS ---
Intake Visit Reasons: B/L Knee injection last inj. 01/24/23 Intake Note: Sara is a 71 year old female who presents today for a repeat of her bilateral knee injections, last injections 01/24/23. Patient reports her last injection gave her about 6 months of relief and would like to repeat. Allergies No Known Allergies Allergy (Verified 01/24/23 11:25) HPI HPI B/L Knee injection last inj. 01/24/23: Details: 73-year-old female who presents in the office today for a follow up of bilateral knee osteoarthritis. I last saw the patient in the office on 01/24/2023 when she received a cortisone injection. While in the office today the patient reports getting 6 months of relief with her last injection. She is interested in repeating the cortisone injection today. Patient has significant medical history of diabetes mellitus. 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 No ecchymosis, erythema, or joint effusion. No tenderness to palpation to the medial joint lines.. Tenderness to palpation along the lateral joint lines. Crepitus felt with ROM. Full knee extension and flexion. Negative Lavinia's. NVI. Left knee: Normal to inspection. No ecchymosis, erythema, or joint effusion. No tenderness to palpation to the lateral joint line. Tenderness to palpation over the medial joint line. Crepitus felt with ROM. Full knee extension and flexion. Negative Lavinia's. NVI. Office Procedures Joint Injection/Drain Joint Injection/Drain Primary Site: right knee Secondary Site: left knee Injected: 40 mg of, DepoMedrol, with 8 mL of (2% plain lido ) and in the joint Approach Used: anterolateral Procedure: The patient tolerated the procedure well, but had some pain with the injection and there was some relief with the local anesthesia Coding 58177 - Large joint Procedure code (CPT) selection complete Assessment & Plan Assessment & Plan (1) Osteoarthritis of left knee: Code(s): M17.12 - Unilateral primary osteoarthritis, left knee Category: Medical (2) Osteoarthritis of right knee: Code(s): M17.11 - Unilateral primary osteoarthritis, right knee Category: Medical (3) Diabetes mellitus: Code(s): E11.9 - Type 2 diabetes mellitus without complications Category: Medical Plan Ms. Freitas is a 73-year-old female who presents in the office today for a follow up of bilateral knee osteoarthritis. I last saw the patient in the office on 01/24/2023 when she received a cortisone injection. While in the office today the patient reports getting 6 months of relief with her last injection. She is interested in repeating the cortisone injection today. Patient has significant medical history of diabetes mellitus. The patient was offered a cortisone injection in the bilateral knees with 40 mg of DepoMedrol. The patient was explained the risk, benefits, and alternatives to receiving this injection. After receiving consent for the injection, the patient had the procedure done while in the office today. The patient tolerated the procedure well with no complications. Due to the patient?s history of diabetes, they were instructed to monitor her blood glucose level. The patient was informed that they could see a rise in their numbers and if the numbers became too high, they were instructed to call their PCP. The patient was also informed that they could have facial flushing as a side effect of the injection, but this will pass. Follow up will be PRN, or sooner if needed. X-rays of the bilateral knees which were obtained while in the office today and were reviewed by me, Norma Garnica PA-C, revealed no acute fracture or dislocation. Osteoarthritis noted. Orders: Orders XR knee LT 3V Today M25.569 - Pain in unspecified knee Patient Instructions: Scribed by Anabel Jorgensen regional medical directorjanee flores PA-C on 01/30/2024 at 1:47 pm, EST. Coding Level of Care Code Est Pt Level 4 (27159) Diagnoses Osteoarthritis of left knee M17.12 Osteoarthritis of right knee M17.11 Diabetes mellitus E11.9 CPT Codes Coding - 16544 Large joint: 31964 - Large joint ([id number])
== END 2024-01-30 14:07 | disposition home or self-care (01) ==
PROVIDERS: PCP Internal Medicine; Visit Provider Physician Assistant
DX: M17.0 Bilateral primary osteoarthritis of knee (principal); E11.9 Type 2 diabetes mellitus without complications
CPT/HCPCS: 20610

== ENCOUNTER 2024-01-30 15:34 | Outpatient (REF) | payer MEDICARE, SELFPAY ==
--- NOTE | ~2024-01-30 | XR_ITS ---
EXAMINATION: XR STANDING BILATERAL KNEES XR LEFT KNEE CLINICAL INFORMATION: Pain in unspecified knee. COMPARISON: 08/23/2022. TECHNIQUE: AP standing view as well as sunrise and lateral views of bilateral knees. FINDINGS: LEFT KNEE: Large joint effusion. Vticjjtn-kj-jgljzu narrowing of the medial compartment with prominent medial osteophytes. Small posterior patellar osteophytes. RIGHT KNEE: Moderate narrowing of the medial compartment. Trace joint effusion. Prominent medial marginal osteophytes. Small posterior patellar osteophytes. XR/XR knee LT 3V IMPRESSION: 1. Large left knee joint effusion. 2. Moderate degenerative changes bilateral knees.
--- NOTE | ~2024-01-30 | XR_ITS ---
EXAMINATION: XR STANDING BILATERAL KNEES XR LEFT KNEE CLINICAL INFORMATION: Pain in unspecified knee. COMPARISON: 08/23/2022. TECHNIQUE: AP standing view as well as sunrise and lateral views of bilateral knees. FINDINGS: LEFT KNEE: Large joint effusion. Hotcnuru-wq-izgkxg narrowing of the medial compartment with prominent medial osteophytes. Small posterior patellar osteophytes. RIGHT KNEE: Moderate narrowing of the medial compartment. Trace joint effusion. Prominent medial marginal osteophytes. Small posterior patellar osteophytes. XR/XR knee RT 3V IMPRESSION: 1. Large left knee joint effusion. 2. Moderate degenerative changes bilateral knees.
== END 2024-01-30 15:35 | disposition home or self-care (01) ==
LOC: HO.HOSX 15:34
PROVIDERS: Visit Provider Physician Assistant
DX: M17.0 Bilateral primary osteoarthritis of knee (principal); E11.9 Type 2 diabetes mellitus without complications
CPT/HCPCS: 20610; 73562; J1010

== ENCOUNTER 2024-02-01 11:38 | Outpatient (REF) | payer MEDICARE, SELFPAY ==
[2024-02-01 13:58] LABS: Estimated Average Glucose 160 mg/dL; Hemoglobin A1c % 7.2 % (<6.0)
[2024-02-01 14:03] LABS: Alanine Aminotransferase 13 U/L (0-31); Albumin Level 4.4 g/dL (3.5-5.0); Alkaline Phosphatase 90 U/L (39-117); Aspartate Amino Transferase 12 U/L (5-31); Bilirubin Direct 0.3 mg/dL (0.0-0.5); Bilirubin Total 0.8 mg/dL (0.0-1.0); Cholesterol 171 mg/dL (<200); Glucose Fasting 132 mg/dL (60-99); HDL Cholesterol 64 mg/dL (>40); LDL Cholesterol Calculated 84 mg/dL (<100); Total Protein 7.6 g/dL (6.5-8.0); Triglycerides 116 mg/dL (<150)
== END 2024-02-01 11:39 | disposition home or self-care (01) ==
LOC: HO.LAB 11:38
PROVIDERS: PCP Internal Medicine; Visit Provider Internal Medicine
DX: E11.9 Type 2 diabetes mellitus without complications (principal); E78.00 Pure hypercholesterolemia, unspecified
CPT/HCPCS: 36415; 80061; 80076; 82947; 83036

== ENCOUNTER → 2024-02-22 10:28 | Outpatient (REF) | payer MEDICARE, SELFPAY ==
--- NOTE | 2024-02-22 10:32 | CA_ITS ---
Acquisition Time: 2024-02-22 10:41:38 Total Exercise Time: 00:05:00 Test Indications: PRECORDIAL CHEST PAIN Medications: Protocol: JAYLEN Max HR: 139 BPM 93% of Pred: 149 BPM Max BP: 232/054 mmHG Max Work Load: 4.6 METS Exercise stress test exercise 5 min of Jaylen protocol stage 1 achieving 93% with HTN response, withiout anginal symptoms, with isolated PVCs and venticular bigeminy, without ST changes. Test reviewed with Dr. See. Patient took BP meds at the begining of test. Recomenned to repeat test with medication taking in the morning of test along with nuclear imaging. Referred By: Francis Brown Overread By: Venecia Hanson
== END ==
LOC: HO.CARD 10:28
PROVIDERS: PCP Internal Medicine; Visit Provider Internal Medicine
DX: R07.2 Precordial pain (principal)
CPT/HCPCS: 93017

== ENCOUNTER → 2024-02-22 10:32 | Outpatient (BNV) | payer MEDICARE, SELFPAY | PROVIDERS: PCP Internal Medicine; Visit Provider Nurse Practitioner | DX: R07.2 Precordial pain (principal); I49.3 Ventricular premature depolarization | CPT/HCPCS: 93016; 93018 ==

== ENCOUNTER → 2024-04-16 08:14 | Outpatient (REF) | payer MEDICARE, SELFPAY ==
--- NOTE | ~2024-04-16 | NM_ITS ---
Exercise Myocardial perfusion study Indication: Precordial chest pain Technique: The patient was brought in for an exercise perfusion study on 04/16/2024. Patient performed exercise as per Emre protocol and was injected 30 mCi of sestamibi was given intravenously one target HR was achieved. Images were obtained using the SPECT gamma camera interlaced with the gating device. Images were obtained in supine position. Resting perfusion study was performed on 04/18/2024. Patient was administered 30 mCi of sestamibi intravenously at rest. Images were then obtained in supine position. Images obtained with and without CT attenuation. Total DLP 105 mGy-cm. Images were processed with the software and compared side to side in short axis, horizontal long axis and vertical long axis views. Findings: The stress perfusion study showed non attenuated images show mildly to moderately reduced uptake in the inferior and inferoseptal wall of the LV myocardium. Remainder of the LV myocardium is normally perfused. Attenuated corrected images show mildly reduced uptake in the apex of the LV myocardium. The gated study shows normal LV systolic function with gated LVEF of greater than 60%. LV cavity is normal in size. The gated study shows normal systolic wall thickening and contraction of all segments. There is no transient ischemic dilation. Resting study shows no change in perfusion pattern compared to stress perfusion study. Gating at rest reveals normal systolic wall motion with ejection fraction at 70%. The findings are consistent with no reversible defect suggestive of ischemia.. NM/NM abe perf SPECT rest & str Impression: 1. Normal myocardial perfusion 2. Gated LVEF is 70% 3. Transient ischemic dilatation not present Stress EKG is negative for ischemia
--- NOTE | 2024-04-16 08:20 | CA_ITS ---
Acquisition Time: 2024-04-16 08:28:33 Total Exercise Time: 00:05:00 Test Indications: FRANCIS DAO MD Medications: SEE H Protocol: EMRE Max HR: 141 BPM 94% of Pred: 149 BPM Max BP: 178/070 mmHG Max Work Load: 4.6 METS Exercise stress test exercise 5 min of Emre protocol stage 1 achieving 88% MPHR, with mild sob, no chest discomforts, with isolated PVCs, venticular beats in trigeminal and quadriminy pattern, with normotensive response to exericse, without EKG changes. Test reviewed with Dr. Ramon Referred By: Francis Brown Overread By: Venecia Hanson
== END ==
LOC: HO.CARD 08:14
PROVIDERS: PCP Internal Medicine; Visit Provider Internal Medicine
DX: R07.2 Precordial pain (principal)
CPT/HCPCS: 78452; 93017; A9500

== ENCOUNTER → 2024-04-16 08:20 | Outpatient (BNV) | payer MEDICARE, SELFPAY | PROVIDERS: PCP Internal Medicine; Visit Provider Nurse Practitioner | DX: I49.3 Ventricular premature depolarization (principal); R06.02 Shortness of breath | CPT/HCPCS: 78452; 93016; 93018 ==

== ENCOUNTER 2024-09-06 12:01 | Outpatient (REF) | payer MEDICARE, SELFPAY ==
[2024-09-06 13:03] LABS: MANUAL DIFF FLAG NO
[2024-09-06 13:06] LABS: Appearance Urine Turbid; Basophils Absolute Auto 0.1 X10*3/uL (0.0-0.2); Basophils Percent Auto 1.5 % (0-2); Color Urine Dark Yellow; Eosinophils Absolute Auto 0.2 X10*3/uL (0.0-0.4); Eosinophils Percent Auto 3.5 % (0-4); Glucose Urine UA Negative (Negative); Hematocrit 41.2 % (37.0-47.0); Hemoglobin 13.7 g/dl (12.0-16.0); Leukocyte Esterase Urine Small (1+) (Negative); Lymphocytes Absolute Auto 1.2 X10*3/uL (1.2-4.9); Lymphocytes Percent Auto 27.3 % (20-40); Mean Corpuscular HGB Conc 33.3 g/dl (31.0-35.0); Mean Corpuscular Hemoglobin 29.8 pg (27.0-33.0); Mean Corpuscular Volume 89.8 fL (80.0-98.0); Mean Platelet Volume 10.6 fL (9.4-12.3); Monocytes Absolute Auto 0.4 X10*3/uL (0.1-1.2); Monocytes Percent Auto 8.6 % (2-11); Neutrophils Absolute Auto 2.7 x10*3/uL (2.0-8.3); Neutrophils Percent Auto 59.1 % (45-73); Nitrite Urine Negative (Negative); PH 5.5 (5.0-9.0); Platelet Count 269 X10*3/uL (160-400); Red Blood Count 4.59 X10*6/uL (4.20-5.50); Red Cell Distribution Width 14.6 % (11.0-16.0); Specific Gravity - Urine 1.025 (1.005-1.025); UMIC TRIGGER UACC YES; Urine Blood Negative (Negative); Urine Ketones Trace mg/dL (Negative); Urine Protein Negative (Neg-Trace); White Blood Count 4.6 X10*3/uL (4.8-10.8)
[2024-09-06 13:14] LABS: Estimated Average Glucose 140 mg/dL; Hemoglobin A1C 158.6629 umol/L; Hemoglobin A1c % 6.5 % (<6.0); Total Hemoglobin (HGBA1C) 3307.5365 umol/L
[2024-09-06 13:18] LABS: Bacteria Urine 1+ (None Seen); Hyaline Casts Urine 0-2 /LPF (0-2); RBC Urine 0-2 /HPF (0-2); UACC Culture Trigger YES; WBC Urine 0-5 /HPF (0-5)
[2024-09-06 13:23] LABS: Alanine Aminotransferase 23 U/L (0-31); Albumin Level 4.2 g/dL (3.5-5.0); Alkaline Phosphatase 79 U/L (39-117); Anion Gap 12 (12-20); Aspartate Amino Transferase 21 U/L (5-31); Bilirubin Total 0.9 mg/dL (0.0-1.0); Blood Urea Nitrogen 16 mg/dL (9-16); Calcium 10.1 mg/dL (8.4-10.2); Carbon Dioxide 27 mmol/L (22-29); Chloride 106 mmol/L (96-108); Cholesterol 141 mg/dL (<200); Estimated Glomerular Filt Rate > 60; Glucose Fasting 106 mg/dL (60-99); HDL Cholesterol 46 mg/dL (>40); LDL Cholesterol Calculated 73 mg/dL (<100); Potassium 3.7 mmol/L (3.3-5.1); Sodium 141 mmol/L (135-145); Total Protein 7.2 g/dL (6.5-8.0); Triglycerides 111 mg/dL (<150)
[2024-09-06 13:39] LABS: Microalbum/Creatinine Ratio Ur 4.3 ug/mg cr (<30)
[2024-09-06 13:49] LABS: Vitamin D 25-OH Total 45.4 ng/mL (>30)
== END 2024-09-06 12:02 | disposition home or self-care (01) ==
LOC: HO.10HDL 12:01
PROVIDERS: Visit Provider Internal Medicine
DX: Z00.00 Encounter for general adult medical examination without abnormal findings (principal); I10 Essential (primary) hypertension; E11.9 Type 2 diabetes mellitus without complications; E78.00 Pure hypercholesterolemia, unspecified; E55.9 Vitamin D deficiency, unspecified; R82.90 Unspecified abnormal findings in urine
CPT/HCPCS: 36415; 80053; 80061; 81001; 82043; 82306; 82570; 83036; 85025; 87086

== ENCOUNTER 2024-09-10 15:05 | Outpatient (REF) | payer MEDICARE, SELFPAY | END 2024-09-10 15:06 | disposition home or self-care (01) | LOC: HO.MAMMO 15:05 | PROVIDERS: PCP Internal Medicine; Visit Provider Internal Medicine | DX: Z12.31 Encounter for screening mammogram for malignant neoplasm of breast (principal) | CPT/HCPCS: 77063; 77067 ==

== ENCOUNTER → 2024-09-10 15:15 | Outpatient (BNV) | payer MEDICARE, SELFPAY | PROVIDERS: PCP Internal Medicine; Visit Provider Internal Medicine | DX: Z12.31 Encounter for screening mammogram for malignant neoplasm of breast (principal) | CPT/HCPCS: 77063; 77067 ==

== ENCOUNTER 2025-03-21 10:42 | Outpatient (REF) | payer MEDICARE, SELFPAY ==
--- OUTSIDE RECORDS SUMMARY | 2025-03-21 04:00 | XMS_ITS ---
Author Organization Francis Brown MD Address [address] [place] [phone] Care Team Providers Care Merchandising Assistant Name Role Phone Francis Brown Primary Care Provider REASON FOR VISIT FASTING LIPIDS Encounters Encounter Location Date Provider Diagnosis Francis Brown MD [address] [place] [phone] 03/21/2025 Francis Brown Type 2 diabetes yifan itus without complication E11.9 and Pure hypercholesterolemia E78.00 Assessments Encounter Date Diagnosis (ICD Code) Assessment Notes Treatment Notes Treatment Clinical Notes Section Notes 03/21/2025 Type 2 diabetes yifan itus without complication (ICD-10 - E11.9) 03/21/2025 Pure hypercholesterolemia (ICD-10 - E78.00) Plan Of Treatment Pending Test Test Name Order Date Liver Panel 03/21/2025 Glucose Fasting 03/21/2025 Lipid Panel with Reflex 03/21/2025 Hemoglobin A1c 03/21/2025 Next Appt Details Provider Name:Francis jack, 03/28/2025 01:30:00 PM, [address] [facility], Suite [facility], [place], [place], [phone], Provider Name:Francis jack, 09/08/2025 07:45:00 AM, [address], [address], [place], [phone], Provider Name:Francis Valiente ier, 09/19/2025 01:30:00 PM, [address], [address], [place], [phone], Progress Notes * Sara QUIROZ MDOB:[birth year] (74 yo F)Acc No.[id number]:03/21/2025 Progress Note Patient: Sara GAITAN Provider: Luis Brown MD :1950 A ge:74 Y S ex:Female Date:03/21/2025 Address: [place], [phone] Subjective: * Chief Complaints: * 1 . FASTING LIPIDS. * Medical History: Objective: * Vitals: Assessment: * Assessment: 1. T ype 2 diabetes mellitus without complication - E11.9 (Primary) 2 . P ure hypercholesterolemia - E78.00 Plan: * Treatment: 2. P ure hypercholesterolemia L AB: Liver Panel L AB: Glucose Fasting L AB: Lipid Panel with Reflex L AB: Hemoglobin A1c * * The named appointment provid er may or may not be the originator of this progress note, and it is not deemed complete until electronically signed by the appointment provider. Sign off status: Pending * Provider: Luis Brown MD Date: 03/21/2025 Generated for Kathryn springer/Aydin/Adelitaitting on: 03/21/2025 11:21 AM EDT
--- OUTSIDE RECORDS SUMMARY | 2025-03-21 11:21 | XMS_ITS | Patient Health Record ---
Author Organization [facility] Address [address] [place] [phone] Care Team Providers Care Trauma Manager Name Role Phone Francis Brown MD Primary Care Provider Suraj Pham Jr Unavailable [phone] Allergies No Known Allergies Reason For Referral No Information Medications Medication SIG (Take, Route, Frequency, Duration) Notes Start Date End Date Status MiraLax (colon prep) 17 GM/SCOOP mixed with Gatorade or Crystal Light Orally begin at 5:00 p.m. the day before the procedure for 1 day 10/20/2021 Active Multivitamin - as directed Orally Active metFORMIN HCl 500 MG 1 tablet with meals Orally Twice a day Active Lisinopril-hydroCHLOROthiaz guevara 10-12.5 MG (Prior Auth: Rx Ref#:[id number]) Oral for 90 Active Atorvastatin Calcium 20 MG (Prior Auth: Rx Ref#:[id number]) Oral for 90 Active Aspirin EC Low Strength Active Immunizations Vaccine Route Administration Date Status Comme nts Influenza Unknown 05/26/2021 Administered Problems Problem Type SNOMED Code ICD Code Onset Dates Problem Status W/U Status Risk Notes Problem 332547283 Colon cancer screening (Z12.11) Active confirmed Problem 307548358 Encounter for other preprocedural examination (Z01.818) Active confirmed Problem 906203206 Long-term use of aspirin therapy (Z79.82) Active confirmed Plan Of Treatment Future Test Test Name Order Date COLONOSCOPY 03/11/2015 COLONOSCOPY 10/20/2021 Next Appt Details Provider Name:Suraj jensen Jr, 06/26/2025 01:35:00 PM, [address], [address], [place], [address], Insurance Providers Payer Name Payer Address Payer Phone Subscriber Number Group Number Insured Name Patient Relationship to Insured Coverage Start Date Coverage End Date [facility] [address] [place] [phone] [id number] MARGARITO QUIROZ Self - patient is the insured Medical (General) History Medical History History ICD Code diabetes mellitus hypertension breast cancer Surgical History Surgery Date(Month/Year) lumpectomy
[2025-03-21 11:42] LABS: Alanine Aminotransferase 29 U/L (0-31); Albumin Level 4.3 g/dL (3.5-5.0); Alkaline Phosphatase 85 U/L (39-117); Aspartate Amino Transferase 21 U/L (5-31); Cholesterol 156 mg/dL (<200); HDL Cholesterol 52 mg/dL (>40); Total Protein 6.8 g/dL (6.5-8.0); Triglycerides 92 mg/dL (<150)
[2025-03-21 12:00] LABS: Hemoglobin A1C 138.4603 umol/L; Total Hemoglobin (HGBA1C) 3581.0146 umol/L
[2025-03-21 12:49] LABS: Reflex LDLD? No
== END 2025-03-21 10:43 | disposition home or self-care (01) ==
LOC: HO.LAB 10:42
PROVIDERS: PCP Internal Medicine; Visit Provider Internal Medicine
DX: E11.9 Type 2 diabetes mellitus without complications (principal); E78.00 Pure hypercholesterolemia, unspecified
CPT/HCPCS: 36415; 80061; 80076; 82947; 83036

== ENCOUNTER 2025-05-22 08:33 | Outpatient (REF) | payer MEDICARE, SELFPAY ==
--- OUTSIDE RECORDS SUMMARY | 2024-09-05 05:15 | XMS_ITS ---
Author Organization Francis Brown MD Address [address] [place], [place] [phone] Care Team Providers Care Anti Air Warfare Operations Officer Name Role Phone Francis Brown Primary Care Provider [phone] Results Component Value Reference Range Notes Complete Blood Count Auto Di ff Reviewed date:09/06/2024 04:50:47 PM Interpretation: Performing Lab:[facility], [address] [place] [phone] Notes/Report: White Blood Count 4.6 4.8-10.8 X10*3/uL [...] NRBC Abs Auto 0.000 0.0-0.012 X10*3/uL Comprehensive [place]. Panel Fa st Reviewed date:09/06/2024 04:51:02 PM Interpretation: Performing Lab:[facility], [address] [place] [phone] Notes/Report: Sodium 141 135-145 mmol/L Potassium 3.7 [...] Panel Reviewed date:09/06/2024 02:35:14 PM Interpretation: Performing Lab:[facility], [address] [place] [phone] Notes/Report: Triglycerides 111 <150 mg/dL Desirable Triglyceride: [...] Total Reviewed date:09/06/2024 04:04:07 PM Interpretation: Performing Lab:[facility], [address] [place] [phone] Notes/Report: Vitamin D 25-OH Total 45.4 >30 [...] Random Reviewed date:09/06/2024 02:34:54 PM Interpretation: Performing Lab:[facility], [address] [place] [phone] Notes/Report: Creatinine Urine 273.30 Microalbumin Urine 12.0 Microalbum/Creatinine Ratio Ur 4.3 <30 ug/mg cr Albumin/Creatinine Ratio Reference Ranges: Normal: < 30 ug/mg creatinine Microalbuminuria: 30 - 300 ug/mg creatinine Clinical Albuminuria: > 300 ug/mg creatinine Hemoglobin A1c Reviewed date:09/06/2024 02:35:01 PM Interpretation: Performing Lab:[facility], [address] [place] [phone] Notes/Report: Hemoglobin A1c % 6.5 <6.0 % [...] average glucose, using the formula of the Z5X-Dsdhloo Average Glucose study (ADAG), Diabetes Care, Vol.31,#8, Apr. 2007 UA ClnCatch+Micro w/rflx Cul t Reviewed date:09/06/2024 04:51:18 PM Interpretation: Performing Lab:[facility], [address] [place] [phone] Notes/Report: [id number] 1204 Urine, Clean Catch Color Urine Dark Yellow Appearance Urine Turbid PH 5.5 5.0-9.0 Glucose Urine UA Negative Negative mg/dL Urine Blood Negative Negative Specific [place] - Urine 1.025 1.005-1.025 Urine Protein Negative [...] Date Provider Diagnosis Francis Brown MD [address] [place], [place] [phone] 09/05/2024 Francis Brown Blood tests for rout [...] 07:45:00 AM, [address], [address], [place], [place], [phone], Provider Name:Francis Juan Steffanie ier, 09/19/2025 01:30:00 PM, [address], [address], [place], [place], [phone], Progress Notes * Sara QUIROZ MDOB:[birth year] (74 yo F)Acc No.[id number]:09/05/2024 Progress Note Patient: Suresh GIANCARLO Sara Evelyn Provider: Luis Brown MD :1950 A ge:73 Y S ex:Female Date:09/05/2024 Address:[address] [place], [place] [phone] Subjective: * Chief Complaints: * 1 . [...] - 09/06/2024 12:12 PM) L AB: Comprehensive [place]. Panel Fast (Collection Date & Time - [...] - 09/06/2024 12:12 PM) L AB: Comprehensive [place]. Panel Fast (Collection Date & Time - [...] - 09/06/2024 12:12 PM) L AB: Comprehensive [place]. Panel Fast (Collection Date & Time - [...] - 09/06/2024 12:12 PM) L AB: Comprehensive [place]. Panel Fast (Collection Date & Time - [...] 11/06/2023 Generated for Kathryn springer/Aydin/Adelitaitting on: 0 05/23/2025 09:06 AM EDT
--- OUTSIDE RECORDS SUMMARY | 2024-11-12 10:04 | XMS_ITS ---
Author Organization Francis Brown MD Address 10 [facility] [address] [place] [phone] Care Team Providers Care Resolution Agent Name Role Phone Francis Brown Primary Care Provider REASON FOR VISIT eye exam Encounters Encounter Location Date Provider Diagnosis Francis Brown MD [address] [facility] [address] [place] [phone] 11/12/2024 Francis Brown Plan Of Treatment Next Appt Details Provider Name:Francis Valiente ier, 09/08/2025 07:45:00 AM, [address] [place] [address], [phone], Provider Name:Francis Valiente ier, 09/19/2025 01:30:00 PM, [address] [place] [address], [phone], Progress Notes * Sara QUIROZ MDOB:[birth year] (74 yo F)Acc No.[id number]:11/12/2024 Patient: Sara GAITAN :1950 A ge:74 Y S ex:Female Address: [address], [place] [address] * true * Date: Generated for Kathryn springer/Aydin/Catalina on: 0 05/23/2025 09:06 AM EDT
--- OUTSIDE RECORDS SUMMARY | 2025-03-21 04:00 | XMS_ITS ---
Author Organization Francis Brown MD Address [address] [place], [place] [phone] Care Team Providers Care Programmer Analyst Health It Name Role Phone Francis Brown Primary Care Provider [phone] Results Component Value Reference Range Notes Liver Panel Reviewed date:03/21/2025 12:50:45 PM Interpretation: Performing Lab:[facility], [address] [place] [phone] Notes/Report: Bilirubin Total 1.0 0.0-1.0 mg/dL Bilirubin Direct 0.2 0.0-0.5 mg/dL Aspartate Amino Transferase 21 5-31 U/L Alanine Aminotransferase 29 0-31 U/L Total Protein 6.8 6.5-8.0 g/dL Albumin Level 4.3 3.5-5.0 g/dL Alkaline Phosphatase 85 39-117 U/L Glucose Fasting Reviewed date:03/21/2025 12:50:28 PM Interpretation: Performing Lab:[facility], [address] [place] [phone] Notes/Report: Glucose Fasting 93 60-99 mg/dL Lipid Panel with Reflex Reviewed date:03/21/2025 12:51:09 PM Interpretation: Performing Lab:[facility], [address] [place] [phone] Notes/Report: Triglycerides 92 <150 mg/dL Desirable Triglyceride: [...] A1c Reviewed date:03/21/2025 12:45:57 PM Interpretation: Performing Lab:[facility], [address] [place] [phone] Notes/Report: Hemoglobin A1c % 5.7 <6.0 % [...] average glucose, using the formula of the X9Z-Dqbqqmz Average Glucose study (ADAG), Diabetes Care, Vol.31,#8, Apr. 2007 REASON FOR VISIT FASTING LIPIDS Encounters Encounter Location Date Provider Diagnosis Francis Brown MD [address] [place] [address] Drive [address] [place], [place] [phone] 03/21/2025 Francis Brown Type 2 diabetes yifan [...] 07:45:00 AM, [address], [address], [place], [place], [phone], Provider Name:Francis Valiente ier, 09/19/2025 01:30:00 PM, [address], [address], [place], [place], [phone], Progress Notes * Sara QUIROZ MDOB:[birth year] (74 yo F)Acc No.[id number]:03/21/2025 Progress Note Patient: Sara GAITAN Provider: Luis Brown MD :1950 A ge:74 Y S ex:Female Date:03/21/2025 Address:[address] [place], [place] [phone] Subjective: * Chief Complaints: * 1 . [...] MD Date: 0 03/21/2025 Generated for Kathryn springer/Aydin/Adelitaitting on: 0 05/23/2025 09:06 AM EDT
--- OUTSIDE RECORDS SUMMARY | 2025-03-28 09:30 | XMS_ITS ---
Author Organization Francis Brown MD Address [address] [place], [place] [phone] Care Team Providers Care Supervisor Transferring And Boxing Name Role Phone Francis Brown Primary Care [...] Location Date Provider Diagnosis Francis Brown MD [address] [place] [address] [place] [phone] 03/28/2025 Francis Brown Type 2 diabetes, controlled, [...] Details Provider Name:Francis jack, 09/08/2025 07:45:00 AM, [address] [place] [address], [place] [address], [place], [place], [phone], Provider Name:Francis jack, 09/19/2025 01:30:00 PM, [address] [place] [address], [place] [address], [place], [place], [phone], Progress Notes * Sara QUIROZ MDOB:[birth year] (74 yo F)Acc No.[id number]:03/28/2025 Progress Notes Patient: Sara GAITAN Provider: Luis Brown MD :1950 A ge:74 Y S ex:Female Date:03/28/2025 Address:[address], [id number] Subjective: * Chief Complaints: * 6 MO [...] 0 03/28/2025 Generated for Kathryn springer/Aydin/Adelitaitting on: 0 05/23/2025 09:06 AM EDT History and Physical Notes * HPI [...]
--- NOTE | ~2025-05-22 | XR_ITS ---
EXAMINATION: XR KNEE 3 VIEWS LEFT, XR KNEE 3 VIEWS RIGHT HISTORY: M25.569 - Pain in unspecified knee COMPARISON: Comparison is made with the prior examination dated 01/30/2024. FINDINGS: Standing AP views of both knees and additional lateral and sunrise patellar views of the bilateral knees are submitted. Osseous mineralization is normal. There is no fracture or dislocation. On the right, there is moderate osteoarthritis of the medial compartment and mild osteoarthritis of the patellofemoral compartment. On the left, there is severe osteoarthritis of the medial compartment and mild osteoarthritis of the patellofemoral compartment. The soft tissues are unremarkable. There is no joint effusion. XR/XR knee LT 3V IMPRESSION: Osteoarthritis of the bilateral knees as described. Electronically signed by: Eduin Suarez MD 05/22/2025 01:17 PM EDT
--- NOTE | ~2025-05-22 | XR_ITS ---
EXAMINATION: XR KNEE 3 VIEWS LEFT, XR KNEE 3 VIEWS RIGHT HISTORY: M25.569 - Pain in unspecified knee COMPARISON: Comparison is made with the prior examination dated 01/30/2024. FINDINGS: Standing AP views of both knees and additional lateral and sunrise patellar views of the bilateral knees are submitted. Osseous mineralization is normal. There is no fracture or dislocation. On the right, there is moderate osteoarthritis of the medial compartment and mild osteoarthritis of the patellofemoral compartment. On the left, there is severe osteoarthritis of the medial compartment and mild osteoarthritis of the patellofemoral compartment. The soft tissues are unremarkable. There is no joint effusion. XR/XR knee RT 3V IMPRESSION: Osteoarthritis of the bilateral knees as described. Electronically signed by: Eduin Suarez MD 05/22/2025 01:17 PM EDT
--- OUTSIDE RECORDS SUMMARY | 2025-05-23 09:06 | XMS_ITS | Patient Health Record ---
Author Organization Francis Brown MD Address [address] [place], [place] [id number] Care Team Providers Care Vest Baster Name Role Phone Francis Brown Primary Care Provider [phone] Allergies No Known Allergies Results Component Value Reference Range Notes Urine Culture Reviewed date:09/10/2024 04:44:51 PM Interpretation: Performing Lab:[facility], [address] [place] [phone] Notes/Report: Urine Culture Report Result Urine Culture 10,000 to 50,000 cfu/ml Urine Culture Mixed bacterial cari a characteristic of Urine Culture urogenital contamination. MM tomosynthesis screening B I Reviewed date:10/07/2024 05:21:53 PM Interpretation: Performing Lab: Notes/Report: [facility] [address] [place] [address] Mammography Report Signed with [place] Patient: Sara Freitas MR#: [id number] : 1950 Acct:[id number] Age/Sex: 74 / F ADM Date: 09/10/24 Loc: HO.MAMMO Attending Dr: Francis Brown MD Ordering Physician: Francis Brown MD Results: 2Be nign Findings Date of Service: 09/10/24 Follow Up: 1 Year From Orig ina Mammogram Procedure(s): MM tomosynthesis screening BI Accession Number(s): [id number] cc: Francis Brown MD ADDENDUM ADDENDUM #1 [...] OV> 09/21/242015 DD/ 14 TD/TT: 12/31/24 1528 Glass Maker: [facility] [address] [place] [address] [place] [address] Mammography Report Signed with Addenda Patient: Franklin Freitas MR#: [id number] : 1950 Acct:[id number] Age/Sex: 74 / F ADM Date: 09/10/24 Loc: HO.MAMMO Attending Dr: Francis Brown MD Ordering Physician: Francis Brown MD Results: 2Be nign Findings Date of Service: Follow Up: 1 Year From Orig ina Mammogram Procedure(s): MM tomi osynthesis screening BI Accession Number(s): [id number] cc: Francis Brown MD ADDENDUM ADDENDUM #1 [...] DO 09/21/2024 08:16 PM [facility] Dictated By: Frida Cheema i, DO Signed By: <Electron ically signed by Frida David DO in OV> 09/21/242015 DD/ 1515 TD/TT: 09/10/24 1528 Glass Maker: Reason For Referral No Information Medications Medication [...] Status Risk Notes Problem Vitamin D deficiency (47721576) Vitamin D deficiency (E55.9) Active confirmed Problem 81283945 Essential hypert ension (I10) Active confirmed Problem 15747644 Type 2 diabetes mellitus without complication (E11.9) Active confirmed Problem 600928016 Non morbid obesi ty due to excess calories (E66.09) Active confirmed Problem 813967945 History of breas t cancer (Z85.3) Active confirmed Problem 28696137 Type 2 diabetes, controlled, with neuropathy (E11.40) Active confirmed Problem 936062504123611 Carpal tunnel sy ndrome of right wrist (G56.01) Active confirmed Problem 45012986400722 Pharyngeal dysph agia (R13.13) Active confirmed Problem 952917385 Pure hypercholesterolemia (E78.00) Active confirmed Problem 510161239 BMI 37.0-37.9, a dult (Z68.37) Active confirmed Problem 525377487 Arthritis of kne e (M17.10) Active confirmed Problem 37194556844604 History of cardi ac cath (Z98.890) Active confirmed Problem 279854245 Age-related inci pient cataract, unspecified laterality (H25.099) [...] Location Date Provider Diagnosis Francis Brown MD [address] [place] [address] Drive [address] [place] [phone] 09/12/2024 Francis Brown Essential hypertensi on I10 ; Annual physical exam Z00.00 ; History of breast cancer Z85.3 ; Type 2 diabetes mellitus without complication E11.9 ; Pure hypercholesterolemia E78.00 ; Type 2 diabetes, controlled, 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 and Depression screening Z13.31 Francis Brown MD [address] [place] [phone] 03/28/2025 Francis Brown Type 2 diabetes, controlled, 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 ; Pure hypercholesterolemia E78.00 and Essential hypertension I10 Francis Brown MD [address] [place] [address] [address] [phone] 07/12/2024 Francis Brown MD [address] [place] [address] [address] [phone] 11/12/2024 Francis Brown Assessments Encounter Date Diagnosis [...] Provider Name:Francis Valiente ier, 09/08/2025 07:45:00 AM, [address] [place] [address], [address], [phone], Provider Name:Francis Valiente ier, 09/19/2025 01:30:00 PM, [address] [place] [address], [place] [address], [place], [place], [phone], Insurance Providers Payer Name Payer Address Payer Phone Subscriber Number Group Number Insured Name Patient Relationship to Insured Coverage Start Date Coverage End Date [employer] [facility] [address] [place] [phone] [id number] Sara Freitas Self - patient is the insured MEDICARE [employer] [address] [place] [address] [id number] Sara Freitas Self - patient is the insured Medical (General) History Medical History History ICD Code colonoscopy 2002 due 2012; c olonoscopy done 07/24/15 w/Dr. Cabrera tubular adenoma: tubular adenomasncolonocopy 01/26/22 awaiting path he wants repeat colonoscopy in 3 years Surgical History Surgery Date(Month/Year) breast cancer lumpectomy radiation chemo . two positive nodes 2000
--- OUTSIDE RECORDS SUMMARY | 2025-05-23 09:07 | XMS_ITS | Patient Health Record ---
Author Organization [facility] Address [address] [place] [phone] Care Team Providers Care Furniture Upholstery Mechanic Name Role Phone Francis Brown MD Primary [...] Lisinopril-hydroCHLOROthiaz guevara 10-12.5 MG (Prior Auth: Rx Ref#:[id number]) Oral for 90 Active Atorvastatin Calcium 20 MG (Prior Auth: Rx Ref#:[id number]) Oral for 90 Active Aspirin EC Low Strength Active Immunizations Vaccine Route Administration Date Status Comme nts Influenza Unknown 05/26/2021 Administered Problems Problem Type SNOMED Code ICD Code Onset Dates Problem Status W/U Status Risk Notes Problem 503998618 Colon cancer screening (Z12.11) Active confirmed Problem 738060899 Encounter for other preprocedural examination (Z01.818) Active confirmed Problem 064119691 Long-term use of aspirin therapy (Z79.82) Active confirmed Plan Of Treatment Future Test Test Name Order Date COLONOSCOPY 03/11/2015 COLONOSCOPY 10/20/2021 Next Appt Details Provider Name:Suraj jensen Jr, 06/26/2025 01:35:00 PM, [address], [address], [place], [address], Insurance Providers Payer Name Payer Address Payer Phone Subscriber Number Group Number Insured Name Patient Relationship to Insured Coverage Start Date Coverage End Date [facility] [address] [place] [phone] [id number] MARGARITO QUIROZ Self - patient is the insured Medical (General) History Medical History History ICD Code diabetes mellitus hypertension breast cancer Surgical History Surgery Date(Month/Year) lumpectomy
--- OUTSIDE RECORDS SUMMARY | 2025-05-23 09:08 | XMS_ITS | Clinical Summary ---
Author Organization [facility] Address [address] [place], [place] [phone] Phone Care Team Providers Care Polymerization Oven Operator Name Role Phone Pcp, Unknown Primary Care [...] REPLACEMENT [facility] [place] MED[place] HMO REPLACEMENT [facility] MEDICARE HMO REPLACEMENT [facility] [place] MED[place] HMO REPLACEMENT Care Teams Polymerization Oven Operator Relationship Specialty Start Date End Date Pcp, Unknown PCP - General 11/04/21 Additional Source Comments The information contained in this document represents components of the legal health record. It is not the complete legal health record.[facility]
== END 2025-05-22 08:34 | disposition home or self-care (01) ==
LOC: HO.HOSX 08:33
PROVIDERS: Visit Provider Physician Assistant
DX: M17.11 Unilateral primary osteoarthritis, right knee (principal); M17.12 Unilateral primary osteoarthritis, left knee
CPT/HCPCS: 20610; 73562; 99212; J0665; J1100; J2003

== ENCOUNTER 2025-05-22 11:32 | Outpatient (AMB) | payer MEDICARE, SELFPAY ==
--- OUTSIDE RECORDS SUMMARY | 2024-09-05 05:15 | XMS_ITS ---
Author Organization Francis Brown MD Address [address] [place], [place] [phone] Care Team Providers Care Slat Grader Name Role Phone Francis Brown Primary Care Provider Results Component Value Reference Range Notes Complete Blood Count Auto Di ff Reviewed date:09/06/2024 04:50:47 PM Interpretation: Performing Lab:[facility], [address] [place] [phone] Notes/Report: White Blood Count 4.6 4.8-10.8 X10*3/uL [...] NRBC Abs Auto 0.000 0.0-0.012 X10*3/uL Comprehensive [place]. Panel Fa st Reviewed date:09/06/2024 04:51:02 PM Interpretation: Performing Lab:[facility], [address] [place] [phone] Notes/Report: Sodium 141 135-145 mmol/L Potassium 3.7 [...] Panel Reviewed date:09/06/2024 02:35:14 PM Interpretation: Performing Lab:[facility], [address] [place] [phone] Notes/Report: Triglycerides 111 <150 mg/dL Desirable Triglyceride: [...] Total Reviewed date:09/06/2024 04:04:07 PM Interpretation: Performing Lab:[facility], [address] [place] [phone] Notes/Report: Vitamin D 25-OH Total 45.4 >30 [...] Random Reviewed date:09/06/2024 02:34:54 PM Interpretation: Performing Lab:[facility], [address] [place] [phone] Notes/Report: Creatinine Urine 273.30 Microalbumin Urine 12.0 Microalbum/Creatinine Ratio Ur 4.3 <30 ug/mg cr Albumin/Creatinine Ratio Reference Ranges: Normal: < 30 ug/mg creatinine Microalbuminuria: 30 - 300 ug/mg creatinine Clinical Albuminuria: > 300 ug/mg creatinine Hemoglobin A1c Reviewed date:09/06/2024 02:35:01 PM Interpretation: Performing Lab:[facility], [address] [place] [phone] Notes/Report: Hemoglobin A1c % 6.5 <6.0 % [...] average glucose, using the formula of the T7M-Wybpird Average Glucose study (ADAG), Diabetes Care, Vol.31,#8, Apr. 2007 UA ClnCatch+Micro w/rflx Cul t Reviewed date:09/06/2024 04:51:18 PM Interpretation: Performing Lab:[facility], [address] [place] [phone] Notes/Report: [id number] 1204 Urine, Clean Catch Color Urine Dark Yellow Appearance Urine Turbid PH 5.5 5.0-9.0 Glucose Urine UA Negative Negative mg/dL Urine Blood Negative Negative Specific [place] - Urine 1.025 1.005-1.025 Urine Protein Negative [...] Date Provider Diagnosis Francis Brown MD [address] [place], [place] [phone] 09/05/2024 Francis Brown Blood tests for rout [...] Of Treatment Next Appt Details Provider Name:Francis Juan Steffanie ier, 09/08/2025 07:45:00 AM, [address], [address], [place], [place], [phone], Provider Name:Francis Juan Steffanie ier, 09/19/2025 01:30:00 PM, [address], [address], [place], [place], [phone], Progress Notes * Sara QUIROZ MDOB:[birth year] (74 yo F)Acc No.[id number]:09/05/2024 Progress Note Patient: Suresh GIANCARLO Sara Evelyn Provider: Luis Brown MD :1950 A ge:73 Y S ex:Female Date:09/05/2024 Address:[address] [place], [place] [phone] Subjective: * Chief Complaints: * 1 . [...] - 09/06/2024 12:12 PM) L AB: Comprehensive [place]. Panel Fast (Collection Date & Time - [...] - 09/06/2024 12:12 PM) L AB: Comprehensive [place]. Panel Fast (Collection Date & Time - [...] - 09/06/2024 12:12 PM) L AB: Comprehensive [place]. Panel Fast (Collection Date & Time - [...] - 09/06/2024 12:12 PM) L AB: Comprehensive [place]. Panel Fast (Collection Date & Time - [...] Pending * Provider: Luis Brown MD Date: 1 11/06/2023 Generated for Kathryn springer/Aydin/Adelitaitting on: 0 05/22/2025 03:53 PM EDT
--- OUTSIDE RECORDS SUMMARY | 2024-09-12 09:00 | XMS_ITS ---
Author Organization Francis Brown MD Address [address] [place], [place] [phone] Care Team Providers Care Front Office Representative Name Role Phone Francis Brown Primary Care Provider [phone] Allergies No Known Allergies REASON FOR VISIT [...] Location Date Provider Diagnosis Francis Brown MD [address] [place] [address] Drive [address] [place], [place] [phone] 09/12/2024 Francis Brown Essential hypertensi on I10 [...] Follow Up: 6 Months, Reason: Provider Name:Francis Valiente iearianna, 09/08/2025 07:45:00 AM, [address], [address], [place], [place], [phone], Provider Name:Francis jack, 09/19/2025 01:30:00 PM, [address] [facility], [address], [place], [place], [phone], Progress Notes * Sara QUIROZ MDOB:[birth year] (74 yo F)Acc No.[id number]:09/12/2024 Progress Notes Patient: Suresh tadFranklinna Evelyn Provider: Luis Brown MD :1950 A ge:74 Y S ex:Female Date:09/12/2024 Address: [id number] Subjective: * Chief Complaints: * A [...] Pets: dogs:2. no Travel outside of the [place]. * Medications: T akingAspirin 81 MG [...] mg/dL Urine Blood Negative Negative - Specific [place] - Urine 1.025 1.005-1.025 - Urine Protein [...] Urine 0-2 0-2 - /LPF L ab:Comprehensive [place]. Panel Fast (Order Date - 09/05/2024) (Collection [...] this year.. FEMALE GENITOURINARY: d one by an/ssn 2 4 operator. EXTREMITIES: n o clubbing, cyanosis, or edema. [...] MD Date: 0 09/12/2024 Generated for Kathryn springer/Aydin/Adelitaitting on: 0 05/22/2025 03:54 PM EDT History and Physical Notes * HPI (History [...] had two or more falls in the st year?: No Communication Needs Communication Needs Does [...] copy this year. FEMALE GENITOURINARY: done by an/ssn 2 4 operator ORAL CAVITY: mucosa moist FOOT EXAM: Date: 09/12/2024 normal pinprick . normal pulse. normal light touch.
--- OUTSIDE RECORDS SUMMARY | 2024-11-12 10:04 | XMS_ITS ---
Author Organization Francis Brown MD Address [address] [facility] [address] [place] [phone] Care Team Providers Care Tool Honing Machine Set Up Operator Name Role Phone Francis Brown Primary Care Provider [phone] REASON FOR VISIT eye exam Encounters Encounter Location Date Provider Diagnosis Francis Brown MD [address] [facility] [address] [place] [phone] 11/12/2024 Francis Brown Plan Of Treatment Next Appt Details Provider Name:Francis Valiente ier, 09/08/2025 07:45:00 AM, [address] [place] [address], [phone], Provider Name:Francis Valiente ier, 09/19/2025 01:30:00 PM, [address] [place] [address], [phone], Progress Notes * Sara QUIROZ MDOB:[birth year] (74 yo F)Acc No.[id number]:11/12/2024 Patient: Sara GAITAN :1950 A ge:74 Y S ex:Female Address: [address], [place] [address] * true * Date: Generated for Kathryn springer/Aydin/Catalina on: 0 05/22/2025 03:53 PM EDT
--- OUTSIDE RECORDS SUMMARY | 2025-03-21 04:00 | XMS_ITS ---
Author Organization Francis Brown MD Address [address] [place], [place] [phone] Care Team Providers Care Vp Production Name Role Phone Francis Brown Primary Care Provider Results Component Value Reference Range Notes Liver Panel Reviewed date:03/21/2025 12:50:45 PM Interpretation: Performing Lab:[facility], [address] [place] [phone] Notes/Report: Bilirubin Total 1.0 0.0-1.0 mg/dL Bilirubin Direct 0.2 0.0-0.5 mg/dL Aspartate Amino Transferase 21 5-31 U/L Alanine Aminotransferase 29 0-31 U/L Total Protein 6.8 6.5-8.0 g/dL Albumin Level 4.3 3.5-5.0 g/dL Alkaline Phosphatase 85 39-117 U/L Glucose Fasting Reviewed date:03/21/2025 12:50:28 PM Interpretation: Performing Lab:[facility], [address] [place] [phone] Notes/Report: Glucose Fasting 93 60-99 mg/dL Lipid Panel with Reflex Reviewed date:03/21/2025 12:51:09 PM Interpretation: Performing Lab:[facility], [address] [place] [phone] Notes/Report: Triglycerides 92 <150 mg/dL Desirable Triglyceride: [...] A1c Reviewed date:03/21/2025 12:45:57 PM Interpretation: Performing Lab:[facility], [address] [place] [phone] Notes/Report: Hemoglobin A1c % 5.7 <6.0 % [...] average glucose, using the formula of the Z8U-Vaxbbqn Average Glucose study (ADAG), Diabetes Care, Vol.31,#8, Apr. 2007 REASON FOR VISIT FASTING LIPIDS Encounters Encounter Location Date Provider Diagnosis Francis Brown MD [address] [place] [address] Drive [address] [place], [place] [phone] 03/21/2025 Francis Brown Type 2 diabetes yifan [...] 07:45:00 AM, [address], [address], [place], [place], [phone], Provider Name:Francis Valiente ier, 09/19/2025 01:30:00 PM, [address], [address], [place], [place], [phone], Progress Notes * Sara QUIROZ MDOB:[birth year] (74 yo F)Acc No.[id number]:03/21/2025 Progress Note Patient: Sara GAITAN Provider: Luis Brown MD :1950 A ge:74 Y S ex:Female Date:03/21/2025 Address:[address] [place], [place] [phone] Subjective: * Chief Complaints: * 1 . [...] Pending * Provider: Luis Brown MD Date: 03/21/2025 Generated for Kathryn springer/Aydin/Adelitaitting on: 05/22/2025 03:53 PM EDT
--- OUTSIDE RECORDS SUMMARY | 2025-03-28 09:30 | XMS_ITS ---
Author Organization Francis Brown MD Address [address] [place], [place] [id number] Care Team Providers Care Official Court Interpreter Name Role Phone Francis Brown Primary Care [...] Location Date Provider Diagnosis Francis Brown MD [address] [place] [address] [place] [phone] 03/28/2025 Francis Brown Type 2 diabetes, controlled, [...] Details Provider Name:Francis jack, 09/08/2025 07:45:00 AM, [address] [place] [address], [place] [address], [place], [place], [phone], Provider Name:Francis jack, 09/19/2025 01:30:00 PM, [address] [place] [address], [place] [address], [place], [place], [phone], Progress Notes * Sara QUIROZ MDOB:[birth year] (74 yo F)Acc No.[id number]:03/28/2025 Progress Notes Patient: Sara GAITAN Provider: Luis Brown MD :1950 A ge:74 Y S ex:Female Date:03/28/2025 Address:[address], [id number] Subjective: * Chief Complaints: * 6 MO [...] 03/28/2025 Generated for Kathryn springer/Aydin/Adelitaitting on: 0 05/22/2025 [...]
--- NOTE | 2025-05-22 11:36 | MHC.OFFVIS ---
Intake Visit Reasons: B/L Knee injection (40), last inj 01/30/24 Intake Note: Sara is a 74 year old female who presents today for a repeat of her bilateral knee injections (40), last injections 01/25/24. Patient reports her last injections gave her relief and would like to repeat. Patient states that her last injections gave her about 4 to 6 months of relief. Patient hasn't gotten the chance to book sooner since she is helping her . She is interested in talking about gel injections. Allergies No Known Allergies Allergy (Verified 01/24/23 11:25) HPI HPI B/L Knee injection (40), last inj 01/30/24: Details: Ms. Freitas this is a 74-year-old female who presents to the office today for chronic knee osteoarthritis. She is looking for repeat cortisone injection. Her last injection gave her about 4 months of relief. 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 No ecchymosis, erythema, or joint effusion. No tenderness to palpation to the medial joint lines.. Tenderness to palpation along the lateral joint lines. Crepitus felt with ROM. Full knee extension and flexion. Negative Lavinia's. NVI. Left knee: Normal to inspection. No ecchymosis, erythema, or joint effusion. No tenderness to palpation to the lateral joint line. Tenderness to palpation over the medial joint line. Crepitus felt with ROM. Full knee extension and flexion. Negative Lavinia's. NVI. Office Procedures AMB Joint Injection/Aspiration Joint Injection/Aspiration Primary Site: right knee Secondary Site: left knee Prep: site was prepped using aseptic technique, ethochloride spray was applied and injection warnings given Injected: 40 mg of, DepoMedrol, with 3 mL of (2% plain lidocaine), 0.25% bupivacaine and in the joint Approach Used: anterolateral Procedure: The patient tolerated the procedure well, but had some pain with the injection and there was some relief with the local anesthesia Coding - Bilateral Large Joint Procedure code (CPT) selection complete Assessment & Plan Assessment & Plan (1) Osteoarthritis of left knee: Code(s): M17.12 - Unilateral primary osteoarthritis, left knee Category: Medical (2) Osteoarthritis of right knee: Code(s): M17.11 - Unilateral primary osteoarthritis, right knee Category: Medical Plan The patient was offered a cortisone injection in bilateral knees. The patient was explained the risks, benefits, and alternatives to receiving this injection. After receiving consent for the injection, the patient had the procedure done while in the office today. The patient tolerated the procedure well with no complications. Follow-up will be PRN, or sooner if needed X-rays of bilateral knees which were obtained while in the office today and were reviewed by me, Norma Garnica PA-C, revealed osteoarthritis. Orders: Orders XR knee LT 3V Today M25.569 - Pain in unspecified knee XR knee RT 3V Today M25.569 - Pain in unspecified knee Coding Level of Care Code Est Pt Level 3 (86405) Diagnoses Osteoarthritis of left knee M17.12 Osteoarthritis of right knee M17.11 CPT Codes Coding - 47362 - Bilateral Large Joint: 35000 - Bilateral Large Joint ([id number])
--- OUTSIDE RECORDS SUMMARY | 2025-05-22 15:54 | XMS_ITS | Clinical Summary ---
Author Organization [facility] Address [address] [place], [place] [address] Phone Care Team Providers Care Medical Auditor Name Role Phone Pcp, Unknown Primary Care Provider Unavailabl e Social History Tobacco Use Types Packs/Day Years Used Date Smoking Tobacco: Never Assessed Education Answer Date Recorded Are you interested in more education? Not on yolanda e 01/07/2023 Are you concerned about learning? Not on file 01/07/2023 No 01/07/2023 No 01/07/2023 Digital Access Answer Date Recorded No 02/07/2023 No 02/07/2023 Reliable internet access at home? Not on file 02/07/2023 Device with a working camera? Not on file Comments Unknown Sex and Gender Information Value Date Recorded Sex Assigned at Not on file Legal Sex Female 4:51 PM EST Gender Identity Not on file Sexual Orientation Not on file Plan of Treatment Not on file Medical Devices Not on file Insurance [employer] [facility] [place] [employer] HMO REPLACEMENT [employer] H[employer]PLACEMENT [employer] H[employer] REPLACEMENT [facility] MEDIC[facility] HMO REPLACEMENT [employer] REPLACEMENT Care Teams Medical Auditor Relationship Specialty Start Date End Date Pcp, Unknown PCP - General 11/04/21 Additional Source Comments The information contained in this document represents components of the legal health record. It is not the complete legal health record.[facility]
--- OUTSIDE RECORDS SUMMARY | 2025-05-22 15:54 | XMS_ITS | Patient Health Record ---
Author Organization Francis Brown MD Address [address] [place], [place] [address] Care Team Providers Care Sports Betting Manager Name Role Phone Francis Brown Primary Care Provider Allergies No Known Allergies Results Component Value Reference Range Notes Urine Culture Reviewed date:09/10/2024 04:44:51 PM Interpretation: Performing Lab:[facility], [address] [place] [phone] Notes/Report: Urine Culture Report Result Urine Culture 10,000 to 50,000 cfu/ml Urine Culture Mixed bacterial cari a characteristic of Urine Culture urogenital contamination. MM tomosynthesis screening B I Reviewed date:10/07/2024 05:21:53 PM Interpretation: Performing Lab: Notes/Report: [facility] [address] [place] [address] Mammography Report Signed with [place] Patient: Sara Freitas MR#: [id number] : 1950 Acct:[id number] Age/Sex: 74 / F ADM Date: 09/10/24 Loc: HO.MAMMO Attending Dr: Francis Brown MD Ordering Physician: Francis Brown MD Results: 2Be nign Findings Date of Service: 09/10/24 Follow Up: 1 Year From Orig ina Mammogram Procedure(s): MM tomosynthesis screening BI Accession Number(s): [id number] cc: Francis Brown MD ADDENDUM ADDENDUM #1 ADDENDUM: The current mammogram has been reviewed and remains BI-RADS as follows OVERALL ASSESSMENT: BI-RADS 2 - Benign Findings RECOMMENDATION: 1 year F/U Electronically signed by: Frida David DO 10/07/2024 03:20 PM EST RP Addendum Dictated By: Frida David DO Addendum Signed By: <Electronically signed by Frida David DO in OV> 10/07/24 152 Addendum Cosigned By: DD/ TD/TT: 09/10/24 EXAMINATION: MM SCREENING DIGITAL BREAST TOMOSYNTHESIS, BILATERAL CLINICAL INFORMATION: Screening. Asymptomatic. COMPARISON: Mammography: Comparison is made with available priors TECHNIQUE: Digital breast mammography with tomosynthesis is performed in both the craniocaudal and mediolateral oblique views along with computer-aided detection (CAD). FINDINGS: There are scattered areas of fibroglandular density (ACR BI-RADS breast composition Category b). Post left lumpectomy changes are stable. There are no significant masses, abnormal calcifications, or other abnormalities. MM/MM tomosynthesis screening BI IMPRESSION: No mammographic evidence of malignancy. ASSESSMENT: BI-RADS BI-RADS 2 - Benign Findings RECOMMENDATION: Routine annual mammography screening. 1 year F/U This examination should not preclude the clinical evaluation of a suspicious palpable abnormality. This patient's information was entered into a reminder system with a target due date for their next mammogram. Electronically signed by: Frida David DO 09/21/2024 08:16 PM EST RP Dictated By: Frida David DO Signed By: <Electronically signed by Frida David DO in OV> 09/21/242015 DD/ 14 TD/TT: 12/31/24 1528 Draper[place] Counselor: [facility] [address] [place] [address] [place] [address] Mammography Report Signed with Addenda Patient: Franklin Freitas MR#: [id number] : 1950 Acct:[id number] Age/Sex: 74 / F ADM Date: 09/10/24 Loc: HO.MAMMO Attending Dr: Francis Brown MD Ordering Physician: Francis Brown MD Results: 2Be nign Findings Date of Service: Follow Up: 1 Year From Orig ina Mammogram Procedure(s): MM tomi osynthesis screening BI Accession Number(s): [id number] cc: Francis Brown MD ADDENDUM ADDENDUM #1 ADDENDUM: The current mammogra m has been reviewed and remains BI-RADS as follows OVERALL ASSESSMENT: BI-RADS 2 - Benign Findings RECOMMENDATION: 1 year F/U Electronically ryan d by: Frida David DO 10/07/2024 03:20 PM EST Addendum Dictated By : Frida David DO Addendum Signed By: <Electronically signed by Frida David DO in OV> 10/07/24 1520 Addendum Cosigned By: DD/ TD/TT: 09/10/24 EXAMINATION: MM SCREENING DIGITAL BREAST TOMOSYNTHESIS, BILATERAL CLINICAL INFORMATION: Screening. Asymptomatic. COMPARISON: Mammography: Compari son is made with available priors TECHNIQUE: Digital breast mammo graphy with tomosynthesis is performed in both the craniocaudal and med iolateral oblique views along with computer-aided detection (CAD). FINDINGS: There are scattered areas of fibroglandular density (ACR BI-RADS breast composition Category b). Post left lumpectomy changes are stable. There are no signifi cant masses, abnormal calcifications, or other abnormalities. M M/MM tomosynthesis screening BI IMPRESSION: No mammographic evid ence of malignancy. ASSESSMENT: BI-RADS BI-RADS 2 - Benign Findings RECOMMENDATION: Routine annual mammo graphy screening. 1 year F/U This examination mike uld not preclude the clinical evaluation of a suspicious palpable abnormality. This patient's infor mation was entered into a reminder system with a target due date for their next mammogram. Electronically ryan d by: Frida David DO 09/21/2024 08:16 PM [facility] Dictated By: Frida Cheema i, DO Signed By: <Electron ically signed by Frida David DO in OV> 09/21/242015 DD/ 1515 TD/TT: 09/10/24 1528 Drapery Counselor: Reason For Referral No Information Medications Medication SIG (Take, Route, Frequency, Duration) Notes Start Date End Date Status metFORMIN HCl 500 MG TAKE 1 TABLET [...] 1 TABLET BY MOUTH EVERY DAY Active Lisinopril 10 MG TAKE 1 TABLET BY MOUTH EVERY DAY for 90 Active amLODIPine Besylate 5 MG TAKE 1 TABLET B Y MOUTH EVERY DAY FOR 30 DAYS for 90 Active Immunizations Vaccine Route Administration Date Status Comme nts TDaP Unknown 03/30/2012 Administered Flu Vaccine IM Intramuscular 2012 Administered Fluarix Quadrivalent IM Intramuscular 05/26/2014 Administe red Shingles IM Intramuscular 06/30/2014 Administered zFluzone Quadrivalent IM Intramuscular 07/21/2015 Administ ered Fluarix Quadrivalent IM Intramuscular 07/25/2017 Administe red Prevnar 13 IM Intramuscular 10/26/2017 Administered Fluarix Quadrivalent IM Intramuscular 06/29/2018 Administe red PPSV23 (Pnemovax) IM Intramuscular 01/29/2019 Administered Fluarix Quadrivalent IM Intramuscular 05/23/2019 Administe red Fluarix Quadrivalent IM Intramuscular 06/30/2020 Administe red SARS-COV-2 Moderna Unknown 11/13/2020 Administered SARS-COV-2 Moderna Unknown 12/12/2020 Administered Influenza High Dose IM Intramuscular 06/15/2021 Administer ed SARS-COV-2 Moderna Unknown 07/08/2021 Administered Influenza High Dose IM Intramuscular 07/19/2022 Administer ed Influenza High Dose IM Intramuscular 07/20/2023 Administer ed Influenza High Dose IM Intramuscular 05/21/2024 Administer ed Flu Vaccine Unknown 05/26/2014 Pending Tetanus Unknown 03/30/2012 Pending Social History Tobacco Use: Social History Observation [...] ast year? No Points 0 Interpretation Negative Problems Problem Type SNOMED Code ICD Code Onset Dates Problem Status W/U Status Risk Notes Problem Vitamin D deficiency (37428890) Vitamin D deficiency (E55.9) Active confirmed Problem 24745595 Essential hypert ension (I10) Active confirmed Problem 04765807 Type 2 diabetes mellitus without complication (E11.9) Active confirmed Problem 239027314 Non morbid obesi ty due to excess calories (E66.09) Active confirmed Problem 654358513 History of breas t cancer (Z85.3) Active confirmed Problem 50658236 Type 2 diabetes, controlled, with neuropathy (E11.40) Active confirmed Problem 679156416288741 Carpal tunnel sy ndrome of right wrist (G56.01) Active confirmed Problem 54032305653047 Pharyngeal dysph agia (R13.13) Active confirmed Problem 761484020 Pure hypercholesterolemia (E78.00) Active confirmed Problem 061770048 BMI 37.0-37.9, a dult (Z68.37) Active confirmed Problem 352110074 Arthritis of kne e (M17.10) Active confirmed Problem 00523468454135 History of cardi ac cath (Z98.890) Active confirmed Problem 539111046 Age-related inci pient cataract, unspecified laterality (H25.099) Active confirmed Vital Signs Blood pressure diastolic 60 mm Hg 03/28/2025 deysi ght is down 15 pounds since -11-05 Height 65.50 in 03/28/2025 weight is down 15 pounds since 09-12-24 Blood pressure systolic 112 mm Hg 03/28/2025 weig ht is down 15 pounds since 09-12-24 Weight 187 lbs 03/28/2025 weight is down 15 pounds since 09-12-24 BMI 30.64 kg/m2 03/28/2025 weight is down 15 pounds since 09-12-24 Encounters Encounter Location Date Provider Diagnosis Francis Brown MD [address] [place] [address] [address] [place] [phone] 09/12/2024 Francis Brown Essential hypertensi on I10 ; Annual physical exam Z00.00 ; History of breast cancer Z85.3 ; Type 2 diabetes mellitus without complication E11.9 ; Pure hypercholesterolemia E78.00 ; Type 2 diabetes, controlled, 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 and Depression screening Z13.31 Francis Brown MD [address] [place] [phone] 03/28/2025 Francis Brown Type 2 diabetes, controlled, 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 ; Pure hypercholesterolemia E78.00 and Essential hypertension I10 Francis Brown MD [address] [place] [address] [address] [phone] 07/12/2024 Francis Brown MD [address] [place] [address] [address] [phone] 11/12/2024 Francis Brown Assessments Encounter Date Diagnosis (ICD Code) Assessment Notes Treatment Notes Treatment Clinical Notes Section Notes 09/12/2024 Essential hypertensi on (ICD-10 - I10) doing well on meds, will continue current regiment 09/12/2024 Annual physical exam (ICD-10 - Z00.00) labs reviewed and discussed with patient 03/28/2025 Type 2 diabetes, controlled, with neuropathy (ICD-10 - E11.40) doing well on meds, will continue current regiment 09/12/2024 History of breast cancer (ICD-10 - Z85.3) had mammo 2 days ago 03/28/2025 Pure hypercholesterolemia (ICD-10 - E78.00) doing well on meds, will contiue current regiment 09/12/2024 Type 2 diabetes mellitus without complication (ICD-10 - E11.9) a1c improving on diet 03/28/2025 Essential hypertensi on (ICD-10 - I10) stable, will continuecurent regiment 09/12/2024 Pure hypercholesterolemia (ICD-10 - E78.00) good cholesterolstable , will continue current regiment 09/12/2024 Type 2 diabetes, controlled, with neuropathy (ICD-10 - E11.40) doing well, will continue current regiment 09/12/2024 Depression screening (ICD-10 - Z13.31) negtive screen Plan Of Treatment Pending Test Test Name Order Date Electrocardiogram (EKG) 12/18/2015 Electrocardiogram (EKG) 01/05/2017 NUC MYOCARDIAL PERF SPECT W MIBI 024 MAMMOGRAM DIGITAL BILATERAL SCREEN 03/30 MAMMOGRAM DIGITAL BILATERAL SCREEN 07/26 US BREAST CYST ASPIRATE INITIAL GUIDE Stress Test 02/15/2024 MM diagnostic mammo BI 07/25/2022 XR DEXA axial skeleton 02/11/2021 Next Appt Details Provider Name:Francis Valiente ier, 09/08/2025 07:45:00 AM, [address] [place] [address], [address], [phone], Provider Name:Francis Valiente ier, 09/19/2025 01:30:00 PM, [address] [place] [address], [place] [address], [place], [place], [phone], Insurance Providers Payer Name Payer Address Payer Phone Subscriber Number Group Number Insured Name Patient Relationship to Insured Coverage Start Date Coverage End Date [employer]AN [facility] [address] [place] [phone] [id number] Sara Freitas Self - patient is the insured MEDICARE IDIC [address] [place] [address] [id number] Sara Freitas Self - patient is the insured Medical (General) History Medical History History ICD Code colonoscopy 2002 due 2012; c olonoscopy done 07/24/15 w/Dr. Cabrera tubular adenoma: tubular adenomasncolonocopy 01/26/22 awaiting path he wants repeat colonoscopy in 3 years Surgical History Surgery Date(Month/Year) breast cancer lumpectomy radiation chemo . two positive nodes 2000
--- OUTSIDE RECORDS SUMMARY | 2025-05-22 15:54 | XMS_ITS | Patient Health Record ---
Author Organization [facility] Address [address] [place] [phone] Care Team Providers Care Public Health Veterinarian Name Role Phone Francis Brown MD Primary Care Provider Suraj Pham Jr Unavailable Allergies No Known Allergies Reason For Referral [...] Lisinopril-hydroCHLOROthiaz guevara 10-12.5 MG (Prior Auth: Rx Ref#:[id number]) Oral for 90 Active Atorvastatin Calcium 20 MG (Prior Auth: Rx Ref#:[id number]) Oral for 90 Active Aspirin EC Low Strength Active Immunizations Vaccine Route Administration Date Status Comme nts Influenza Unknown 05/26/2021 Administered Problems Problem Type SNOMED Code ICD Code Onset Dates Problem Status W/U Status Risk Notes Problem 995811065 Colon cancer screening (Z12.11) Active confirmed Problem 181097421 Encounter for other preprocedural examination (Z01.818) Active confirmed Problem 598855203 Long-term use of aspirin therapy (Z79.82) Active confirmed Plan Of Treatment Future Test Test Name Order Date COLONOSCOPY 03/11/2015 COLONOSCOPY 10/20/2021 Next Appt Details Provider Name:Suraj jensen Jr, 06/26/2025 01:35:00 PM, [address], [address], [place], [phone], Insurance Providers Payer Name Payer Address Payer Phone Subscriber Number Group Number Insured Name Patient Relationship to Insured Coverage Start Date Coverage End Date [facility] [address] [place] [phone] [id number] MARGARITO UQIROZ Self - patient is the insured Medical (General) History Medical History History ICD Code diabetes mellitus hypertension breast cancer Surgical History Surgery Date(Month/Year) lumpectomy
== END 2025-05-22 12:21 | disposition home or self-care (01) ==
LOC: HO.HOS 11:32
PROVIDERS: PCP Internal Medicine; Visit Provider Physician Assistant
DX: M17.0 Bilateral primary osteoarthritis of knee (principal); M17.11 Unilateral primary osteoarthritis, right knee
CPT/HCPCS: 20610; 99213

== ENCOUNTER → 2025-05-22 11:35 | Outpatient (BNV) | payer MEDICARE, SELFPAY | PROVIDERS: Visit Provider Radiology Diagnostic Radiology | DX: M17.0 Bilateral primary osteoarthritis of knee (principal) | CPT/HCPCS: 73562 ==

== ENCOUNTER 2025-07-29 09:27 | Day surgery (SDC) | payer MEDICARE, SELFPAY ==
--- OUTSIDE RECORDS SUMMARY | 2024-03-19 06:15 | XMS_ITS ---
Author Organization Francis Brown MD Address [address] [place], [place] [id number] Care Team Providers Care Calender Operator Name Role Phone Francis Brown Primary Care Provider Allergies No Known Allergies REASON FOR VISIT 4 week Medications Medication SIG (Take, Route, Frequency, Duration) Notes Start Date End Date Status Atorvastatin Calcium 20 MG TAKE 1 TABLET BY MOUTH EVERY DAY for 90 Active metFORMIN HCl 500 MG TAKE 1 TABLET BY MOUTH TWICE A DAY WITH A MEAL FOR 90 DAYS Active Flonase 50 MCG/ACT 1 spray in each nostril Nasally Once a day 10/26/2015 Not-Taking hydroCHLOROthiazide 12.5 MG 1 capsule in the morning Orally Once a day 01/23/2023 Active amLODIPine Besylate 5 MG 1 tablet Orally Once a day for 30 day(s) 02/15/2024 Active Lisinopril 10 MG take 1 tablet by mouth every day for 90 days Orally Once a day for 90 days Active Aspirin 81 MG 1 tablet Orally Once a day Active ProAir HFA 108 (90 Base) MCG/ACT 2 puffs as needed Inhalation every 4 hrs 04/13/2015 Not-Taking Vital Signs Blood pressure systolic 118 mm Hg 03/19/20 24 Blood pressure diastolic 60 mm Hg 024 Height 65.50 in 03/19/2024 Weight 209 lbs 03/19/2024 BMI 34.25 kg/m2 03/19/2024 weight is up 2 pounds since 02-15-24 Encounters Encounter Location Date Provider Diagnosis Francis Brown MD [address] [place] [phone] 03/19/2024 Francis Brown Essential hypertension I10 Assessments Encounter Date Diagnosis (ICD Code) Assessment Notes Treatment Notes Treatment Clinical Notes Section Notes 03/19/2024 Essential hypertension (ICD-10 - I10) will continue current regiment and will continue to monitor Plan Of Treatment Medication Medication Name Sig Start Date Stop Date Notes Lisinopril 10 MG take 1 tablet by kirill th every day for 90 days Orally Once a day for 90 days Treatment Notes Assessment Notes Essential hypertension will continue cur rent regiment and will continue to monitor Next Appt Details Follow Up: 6 Weeks, Reason: Provider Name:Francis jack, 09/08/2025 07:45:00 AM, [address] [place] [address], [phone], Provider Name:Francis jack, 09/19/2025 01:30:00 PM, [address] [place] [address], [phone], Provider Name:Francis jack, 12/30/2025 07:00:00 AM, [address] [place] [address], [phone], Provider Name:Francis jack, 01/05/2026 11:00:00 AM, [address] [place] [address], [phone], Progress Notes * Sara QUIROZ MDOB:[birth year] (73 yo F)Acc No.[id number]:03/19/2024 Progress Notes Patient: Suresh jacquelineFranklin houghna Evelyn Provider: Luis Brown MD :1950 A ge:73 Y S ex:Female Date:03/19/2024 Address:[address] [place] [address], [id number] Subjective: * Chief Complaints: * 4 week * HPI: S ymptom(s): patient is a 73 yo female here for 4 week follow up visit, first stress test was very high bp. * ROS: G eneral/Constitutional: Denies C hills. D enies F atigue. D enies F ever. D enies H eadache. E NT: Patient denies d ecreased sense of smell , any loss of taste , sore throat. D enies S ore throat. R espiratory: Denies C ough. D enies S hortness of breath at rest. D enies S hortness of breath with exertion. G astrointestinal: Denies D iarrhea. D enies N ausea. M usculoskeletal: Patient denies m uscle aches. P eripheral Vascular: Patient denies r ed and blue toes. * Medical History: * Surgical History: * Hospitalization/Major Diagno stic Procedure: * Medications: T akingAspirin 81 MG Tablet Delayed Release 1 tablet Orally Once a dayAtorvastatin Calcium 20 MG Tablet TAKE 1 TABLET BY MOUTH EVERY DAY amLODIPine Besylate 5 MG Tablet 1 tablet Orally Once a daymetFORMIN HCl 500 MG Tablet TAKE 1 TABLET BY MOUTH TWICE A DAY WITH A MEAL FOR 90 DAYS Lisinopril 10 MG Tablet TAKE 1 TABLET BY MOUTH EVERY DAY FOR 90 DAYS hydroCHLOROthiazide 12.5 MG Capsule 1 capsule in the morning Orally Once a dayTaking Aspirin 81 MG Tablet Delayed Release 1 tablet Orally Once a dayTaking Atorvastatin Calcium 20 MG Tablet TAKE 1 TABLET BY MOUTH EVERY DAY Taking amLODIPine Besylate 5 MG Tablet 1 tablet Orally Once a dayTaking metFORMIN HCl 500 MG Tablet TAKE 1 TABLET BY MOUTH TWICE A DAY WITH A MEAL FOR 90 DAYS Taking Lisinopril 10 MG Tablet TAKE 1 TABLET BY MOUTH EVERY DAY FOR 90 DAYS Taking hydroCHLOROthiazide 12.5 MG Capsule 1 capsule in the morning Orally Once a dayNot-Taking/PRNFlonase 50 MCG/ACT Suspension 1 spray in each nostril Nasally Once a dayProAir HFA 108 (90 Base) MCG/ACT Aerosol Solution 2 puffs as needed Inhalation every 4 hrsMedication List reviewed and reconciled with the patientNot-Taking/PRN Flonase 50 MCG/ACT Suspension 1 spray in each nostril Nasally Once a dayNot-Taking/PRN ProAir HFA 108 (90 Base) MCG/ACT Aerosol Solution 2 puffs as needed Inhalation every 4 hrsMedication List reviewed and reconciled with the patient * Allergies: N .K.D.A.yes[Allergies Verified] Objective: * Vitals: H t: 65.50, Wt:209, BMI:34.25, BP:118/60, Repeat BP:150/70 weight is up 2 pounds since 02-15-24. * Examination: G eneral Examination: GENERAL APPEARANCE: alert, well hydrated, in no distress , well developed, well nourished. HEAD: normocephalic. SKIN: good turgor. HEART: regular rate and rhythm, no murmurs, rubs, gallops with occasionally extrasystole. LUNGS: no wheezes, rales, rhonchi, good air movement, clear to auscultation bilaterally. Assessment: * Assessment: 1. E ssential hypertension - I10 (Primary) Plan: * Treatment: * Procedure Codes: * Follow Up: 6 Weeks * * Sign off status: Completed true * Provider: Luis Brown MD Date: 0 03/19/2024 Generated for Kathryn springer/Aydin/Catalina on: 09/16/2024 04:57 PM EST History and Physical Notes * HPI (History of Present Illness) Category Sub-Category Detail Notes Category Not es Symptom(s) patient is a 73 yo female here for 4 week follow up visit, first stress test was very high bp Examination Category Sub-Category Detail Notes Category Not es General Examination GENERAL APPEARANCE: alert, w ell hydrated, in no distress , well developed, well nourished HEAD: normocephalic HEART: regular rate and rhy thm, no murmurs, rubs, gallops with occasionally extrasystole LUNGS: no wheezes, rales, r honchi, good air movement, clear to auscultation bilaterally SKIN: good turgor
--- OUTSIDE RECORDS SUMMARY | 2024-04-30 05:15 | XMS_ITS ---
Author Organization Francis Brown MD Address [address] [place], [place] [id number] Care Team Providers Care Flatwork Tier Name Role Phone Francis Brown Primary Care Provider Allergies No Known Allergies Results Component Value Reference Range Notes Hemoglobin A1c Reviewed date:04/30/2024 10:45:32 AM Interpretation: Performing Lab: Notes/Report: Hemoglobin A1c 7.1 Glucose, finger stick Reviewed date:04/30/2024 10:37:12 AM Interpretation: Performing Lab: Notes/Report: Value 191 REASON FOR VISIT 6 week Medications Medication SIG (Take, Route, Frequency, Duration) Notes Start Date End Date Status Lisinopril 10 MG take 1 tablet by mouth every day for 90 days Orally Once a day for 90 days Active metFORMIN HCl 500 MG TAKE 1 TABLET BY MOUTH TWICE A DAY WITH A MEAL FOR 90 DAYS Active amLODIPine Besylate 5 MG 1 tablet Orally Once a day for 30 day(s) 02/15/2024 Active Aspirin 81 MG 1 tablet Orally Once a day Active Atorvastatin Calcium 20 MG TAKE 1 TABLET BY MOUTH EVERY DAY for 90 Active ProAir HFA 108 (90 Base) MCG/ACT 2 puffs as needed Inhalation every 4 hrs 04/13/2015 Not-Taking hydroCHLOROthiazide 12.5 MG 1 capsule in the morning Orally Once a day 01/23/2023 Active Flonase 50 MCG/ACT 1 spray in each nostril Nasally Once a day 10/26/2015 Not-Taking Vital Signs Blood pressure systolic 134 mm Hg 04/30/20 Blood pressure diastolic 70 mm Hg 024 Height 65.50 in 04/30/2024 Weight 212 lbs 04/30/2024 BMI 34.74 kg/m2 04/30/2024 weight is up 3 pounds since 03-19-24 Encounters Encounter Location Date Provider Diagnosis Francis Brown MD [address] [place] [phone] 04/30/2024 Francis Brown Type 2 diabetes mellitus without complication E11.9 and Atypical chest pain R07.89 Assessments Encounter Date Diagnosis (ICD Code) Assessment Notes Treatment Notes Treatment Clinical Notes Section Notes 04/30/2024 Type 2 diabetes mellitus without complication (ICD-10 - E11.9) a1c is stable. encouraged diet, will continue current regiment 04/30/2024 Atypical chest pain (ICD-10 - R07.89) had negative mibi, will continue to monitor Plan Of Treatment Medication Medication Name Sig Start Date Stop Date Notes metFORMIN HCl 500 MG TAKE 1 TABLET BY [facility] TWICE A DAY WITH A MEAL FOR 90 DAYS Treatment Notes Assessment Notes Type 2 diabetes mellitus wit hout complication a1c is stable. encouraged diet, will continue current regiment Atypical chest pain had negative mibi, w ill continue to monitor Next Appt Details Provider Name:Francis jack, 09/08/2025 07:45:00 AM, [address] [place] [address], [address], [phone], Provider Name:Francis jack, 09/19/2025 01:30:00 PM, [address] [place] [address], [address], [phone], Provider Name:Francis jack, 12/30/2025 07:00:00 AM, [address] [place] [address], [address], [phone], Provider Name:Francis jack, 01/05/2026 11:00:00 AM, [address] [place] [address], [address], [phone], Progress Notes * Sara QUIROZ MDOB:[birth year] (73 yo F)Acc No.[id number]:04/30/2024 Progress Notes Patient: Sara Silverman Provider: Luis Brown MD :1950 A ge:73 Y S ex:Female Date:04/30/2024 [id number] Subjective: * Chief Complaints: * 6 week * HPI: S ymptom(s): patient is a 73yo female here for 6 week follow up visit, had normal nuclear stress test. * ROS: G eneral/Constitutional: Denies C hills. [...] DAY WITH A MEAL FOR 90 DAYS hydroCHLOROthiazide 12.5 MG Capsule 1 capsule in the morning Orally Once a dayLisinopril 10 MG Tablet take 1 tablet by mouth every day for 90 days Orally Once a dayTaking Aspirin 81 MG Tablet Delayed Release 1 tablet Orally Once a dayTaking Atorvastatin Calcium 20 MG Tablet TAKE 1 TABLET BY MOUTH EVERY DAY Taking amLODIPine Besylate 5 MG Tablet 1 tablet Orally Once a dayTaking metFORMIN HCl 500 MG Tablet TAKE 1 TABLET BY MOUTH TWICE A DAY WITH A MEAL FOR 90 DAYS Taking hydroCHLOROthiazide 12.5 MG Capsule 1 capsule in the morning Orally Once a dayTaking Lisinopril 10 MG Tablet take 1 tablet by mouth every day for 90 days Orally Once a dayNot-Taking/PRNFlonase 50 MCG/ACT Suspension 1 spray in each nostril Nasally Once a dayProAir HFA 108 (90 Base) MCG/ACT Aerosol Solution 2 puffs as needed Inhalation every 4 hrsNot-Taking/PRN Flonase 50 MCG/ACT Suspension 1 spray in each nostril Nasally Once a dayNot-Taking/PRN ProAir HFA 108 (90 Base) MCG/ACT Aerosol Solution 2 puffs as needed Inhalation every 4 hrs * Allergies: N .K.D.A.yes[Allergies Verified] Objective: * Vitals: H t: 65.50, Wt:212, BMI:34.74, BP:134/70 weight is up 3 pounds since 03-19-24. * Examination: G eneral Examination: GENERAL APPEARANCE: alert, well hydrated, in no distress , female. HEAD: normocephalic. SKIN: good turgor. HEART: regular rate and rhythm, no murmurs, rubs, gallops. LUNGS: no wheezes, rales, rhonchi, good air movement, clear to auscultation bilaterally. Assessment: * Assessment: 1. T ype 2 diabetes mellitus without complication - E11.9 (Primary) 2 . A typical chest pain - R07.89 Plan: * Treatment: Value Reference Range H emoglobin A1c 7.1 * Varsha Dc 4 10:45:31 AM EDT > ?LAB: Glucose, finger stick* Value Reference Range V alue 191 * Varsha Dc 4 10:37:10 AM EDT > Notes: a1c is stable. encouraged diet, will continue current regiment.?? 2.?Atypical chest pain? Notes: had negative mibi, will continue to monitor.?? * Procedure Codes: 8 2947 ASSAY, GLUCOSE, BLOOD QUANT, Modifiers: QW 38579 GLYCATED HEMOGLOBIN TEST, Modifiers: QW * * Sign off status: Completed true * Provider: Luis Brown MD Date: 0 04/30/2024 Generated for Kathryn springer/Aydin/Catalina on: 1 09/16/2024 04:56 PM EST History and Physical Notes * HPI (History of Present Illness) Category Sub-Category Detail Notes Category Not es Symptom(s) patient is a 73 yo female here for 6 week follow up visit, had normal nuclear stress test. Examination Category Sub-Category Detail Notes Category Not es General Examination GENERAL APPEARANCE: alert, w ell hydrated, in no distress , female HEAD: normocephalic HEART: regular rate and rhy thm, no murmurs, rubs, gallops LUNGS: no wheezes, rales, r honchi, good air movement, clear to auscultation bilaterally SKIN: good turgor
--- OUTSIDE RECORDS SUMMARY | 2024-05-21 06:00 | XMS_ITS ---
Author Organization Francis Brown MD Address [address] [place] [phone] Care Team Providers Care Business Account Specialist Name Role Phone Francis Brown Primary Care Provider REASON FOR VISIT HDF Immunizations Vaccine Route Administration Date Status Comme nts Influenza High Dose IM Intramuscular 05/21/2024 Administer ed Encounters Encounter Location Date Provider Diagnosis Francis Brown MD 10 [facility] [address] [place] [phone] 05/21/2024 Francis Brown Encounter for immunization Z23 Assessments Encounter Date Diagnosis (ICD Code) Assessment Notes Treatment Notes Treatment Clinical Notes Section Notes 05/21/2024 Encounter for immunization (ICD-10 - Z23) Plan Of Treatment Next Appt Details Provider Name:Francis jack, 09/08/2025 07:45:00 AM, [address] [place] [address], [address], [phone], Provider Name:Francis jack, 09/19/2025 01:30:00 PM, [address] [place] [address], [phone], Provider Name:Francis jack, 12/30/2025 07:00:00 AM, [address], [address], [place], [place], [phone], Provider Name:Francis Valiente ier, 01/05/2026 11:00:00 AM, [address], [address], [place], [place], [phone], Progress Notes * Sara QUIROZ MDOB:[birth year] (74 yo F)Acc No.[id number]:05/21/2024 Progress Note Patient: Sara GAITAN Provider: Luis Brown MD :1950 A ge:73 Y S ex:Female Date:05/21/2024 Address:[address] [place], [place] [phone] Subjective: * Chief Complaints: * 1 . HDF. * Medical History: Objective: * Vitals: Assessment: * Assessment: 1. E ncounter for immunization - Z23 (Primary) Plan: * Treatment: * Immunizations: Influenza High Dose : 0.5 mL (Dose No:1) (Route: Intramuscular) given by Varsha Dc , Office Staff on Right Deltoid * Procedure Codes: 9 0662 FLU VACC PRSV FREE INC ANTIG, G0008 ADMN FLU VAC NO FEE SCHED SAME DAY * * The named appointment provid er may or may not be the originator of this progress note, and it is not deemed complete until electronically signed by the appointment provider. Sign off status: Pending * Provider: Luis Brown MD Date: 0 05/21/2024 Generated for Kathryn springer/Aydin/Homasmitting on: 09/16/2024 04:55 PM EST
--- OUTSIDE RECORDS SUMMARY | 2024-07-12 06:11 | XMS_ITS ---
Author Organization Francis Brown MD Address 10 [facility] [address] [place] [phone] Care Team Providers Care Emt/Paramedic Name Role Phone Francis Brown Primary Care Provider REASON FOR VISIT Urine test needed Encounters Encounter Location Date Provider Diagnosis Francis Brown MD [address] [place] [address] [place] [phone] 07/12/2024 Francis Brown Plan Of Treatment Next Appt Details Provider Name:Francis jack, 09/08/2025 07:45:00 AM, [address] [place] [address], [address], [phone], Provider Name:Francis jack, 09/19/2025 01:30:00 PM, [address] [place] [address], [address], [phone], Provider Name:Francis jack, 12/30/2025 07:00:00 AM, [address] [place] [address], [address], [phone], Provider Name:Francis jack, 01/05/2026 11:00:00 AM, [address], [address], [place], [phone], Progress Notes * Sara QUIROZ MDOB:[birth year] (73 yo F)Acc No.[id number]:07/12/2024 Patient: Suresh Sara mishra :1950 A ge:73 Y S ex:Female Address: [address], [place] [address] * true * Date: Generated for Kathryn springer/Aydin/eTransmitting on: 09/16/2024 04:55 PM EST
--- OUTSIDE RECORDS SUMMARY | 2024-09-05 04:15 | XMS_ITS ---
Author Organization Francis Brown MD Address [address] [place], [place] [phone] Care Team Providers Care Osteology Teacher Name Role Phone Francis Brown Primary Care Provider Results Component Value Reference Range Notes Complete Blood Count Auto Di ff Reviewed date:09/06/2024 04:50:47 PM Interpretation: Performing Lab:[facility], [address] [place] [phone] Notes/Report: White Blood Count 4.6 4.8-10.8 X10*3/uL Red Blood Count 4.59 4.20-5.50 X10*6/uL Hemoglobin 13.7 12.0-16.0 g/dl Hematocrit 41.2 37.0-47.0 % Mean Corpuscular Volume 89.8 80.0-98.0 fL Mean Corpuscular Hemoglobin 29.8 27.0-33.0 pg Mean Corpuscular HGB Conc 33.3 31.0-35.0 g/dl Red Cell Distribution Width 14.6 11.0-16.0 % Platelet Count 269 160-400 X10*3/uL Mean Platelet Volume 10.6 9.4-12.3 fL Neutrophils Percent Auto 59.1 45-73 % Imm Gran Pct Auto 0.0 0.0-0.4 % Lymphocytes Percent Auto 27.3 20-40 % Monocytes Percent Auto 8.6 2-11 % Eosinophils Percent Auto 3.5 0-4 % Basophils Percent Auto 1.5 0-2 % NRBC Pct Auto 0.0 0.0-0.2 /100WBC Neutrophils Absolute Auto 2.7 2.0-8.3 x10*3/u L Imm Gran Abs Auto 0.00 0.00-0.03 X10*3/uL Lymphocytes Absolute Auto 1.2 1.2-4.9 X10*3/u L Monocytes Absolute Auto 0.4 0.1-1.2 X10*3/uL Eosinophils Absolute Auto 0.2 0.0-0.4 X10*3/u L Basophils Absolute Auto 0.1 0.0-0.2 X10*3/uL NRBC Abs Auto 0.000 0.0-0.012 X10*3/uL Comprehensive [place]. Panel Fa st Reviewed date:09/06/2024 04:51:02 PM Interpretation: Performing Lab:[facility], [address] [place] [phone] Notes/Report: Sodium 141 135-145 mmol/L Potassium 3.7 3.3-5.1 mmol/L Chloride 106 96-108 mmol/L Carbon Dioxide 27 22-29 mmol/L Anion Gap 12 12-20 Blood Urea Nitrogen 16 9-16 mg/dL Creatinine 0.78 0.5-1.4 mg/dL Estimated Glomerular Filt Rate > 60 Chronic Kidney Disease: Estimated GFR < 60 mL/min/1.73m2 Severe Kidney Disease: Estimated GFR < 15 mL/min/1.73m2 Glucose Fasting 106 60-99 mg/dL A fasting glucose from 100-125 mg/dl is considered impaired (pre-diabetes). Calcium 10.1 8.4-10.2 mg/dL Bilirubin Total 0.9 0.0-1.0 mg/dL Aspartate Amino Transferase 21 5-31 U/L Alanine Aminotransferase 23 0-31 U/L Total Protein 7.2 6.5-8.0 g/dL Albumin Level 4.2 3.5-5.0 g/dL Alkaline Phosphatase 79 39-117 U/L Lipid Panel Reviewed date:09/06/2024 02:35:14 PM Interpretation: Performing Lab:[facility], [address] [place] [phone] Notes/Report: Triglycerides 111 <150 mg/dL Desirable Triglyceride: less than 150 mg/dL Borderline High Triglyceride 150-199 mg/dL High Triglyceride: 200-499 mg/dL Very High Triglyceride: greater than or equal to 5OO mg/dL Cholesterol 141 <200 mg/dL Desirable Cholesterol: less than 200 mg/dL Borderline High Cholesterol: 200-239 mg/dL High Cholesterol: greater than 239 mg/dL LDL Cholesterol Calculated 73 <100 mg/dL Desirable LDL: less than 100 mg/dL Near Optimal/Above Optimal LDL: 110-129 mg/dL Borderline High LDL: 130-159 mg/dL High LDL: 160-189 mg/dL Very High LDL: greater than or equal to 190 mg/dL HDL Cholesterol 46 >40 mg/dL Desirable HDL: greater than 40 mg/dL Note: This HDL assay may give artificially low results in patients with liver disease. Vitamin D 25-OH Total Reviewed date:09/06/2024 04:04:07 PM Interpretation: Performing Lab:[facility], [address] [place] [phone] Notes/Report: Vitamin D 25-OH Total 45.4 >30 ng/mL Health Based Reference Values* < 20 ng/mL Deficient 20-30 ng/mL Insufficient > 30 ng/mL Sufficient *Declan MUNOZ. N Engl J Med. 2007;357:266-280 Care must be taken in interpreting Vitamin D results from different laboratories and methodologies. Published data demonstrated that results from patients undergoing hemodialysis may show a negative bias when tested with various automated 25-OH vitamin D assays when compared to LC-MS/MS. When testing samples from patients whose predominant form of Vitamin D is Vitamin D2, such as patients receiving Vitamin D2 supplementation, results that are subtherapeutic should be confirmed with another method such as LC-MS/MS. Microalbumin, Random Reviewed date:09/06/2024 02:34:54 PM Interpretation: Performing Lab:[facility], [address] [place] [phone] Notes/Report: Creatinine Urine 273.30 Microalbumin Urine 12.0 Microalbum/Creatinine Ratio Ur 4.3 <30 ug/mg cr Albumin/Creatinine Ratio Reference Ranges: Normal: < 30 ug/mg creatinine Microalbuminuria: 30 - 300 ug/mg creatinine Clinical Albuminuria: > 300 ug/mg creatinine Hemoglobin A1c Reviewed date:09/06/2024 02:35:01 PM Interpretation: Performing Lab:[facility], [address] [place] [phone] Notes/Report: Hemoglobin A1c % 6.5 <6.0 % Hemoglobin A1C Reference Range Adults: 4.8 - 6.0 % Non diabetic: < 6.0 % Goal: < 7.0 % Additional Action Suggested: > 8.0 % Note: Hemoglobin A1c results are invalid for patients with abnormal amounts of HbF. Blood transfusions may impact the HbA1c concentration in the patient sample. Estimated Average Glucose 140 eAG = Estimated average glucose which is %A1C expressed as average glucose, using the formula of the H2R-Mgwyiyo Average Glucose study (ADAG), Diabetes Care, Vol.31,#8, Apr. 2007 UA ClnCatch+Micro w/rflx Cul t Reviewed date:09/06/2024 04:51:18 PM Interpretation: Performing Lab:[facility], [address] [place] [phone] Notes/Report: [id number] 1204 Urine, Clean Catch Color Urine Dark Yellow Appearance Urine Turbid PH 5.5 5.0-9.0 Glucose Urine UA Negative Negative mg/dL Urine Blood Negative Negative Specific [place] - Urine 1.025 1.005-1.025 Urine Protein Negative Neg-Trace mg/dL Urine Ketones Trace Negative mg/dL Nitrite Urine Negative Negative Leukocyte Esterase Urine Small (1+) Negative RBC Urine 0-2 0-2 /HPF WBC Urine 0-5 0-5 /HPF Squamous Epithelial Cell Urine 6-10 0-2 /HPF Bacteria Urine 1+ None Seen Hyaline Casts Urine 0-2 0-2 /LPF REASON FOR VISIT yearly labs Encounters Encounter Location Date Provider Diagnosis Francis Brown MD [address] [facility] [address] [place], [place] [phone] 09/05/2024 Francis Brown Blood tests for rout ine general physical examination Z00.00 ; Essential hypertension I10 ; Type 2 diabetes mellitus without complication E11.9 ; Pure hypercholesterolemia E78.00 and Vitamin D deficiency E55.9 Assessments Encounter Date Diagnosis (ICD Code) Assessment Notes Treatment Notes Treatment Clinical Notes Section Notes 09/05/2024 Blood tests for rout ine general physical examination (ICD-10 - Z00.00) 09/05/2024 Essential hypertensi on (ICD-10 - I10) 09/05/2024 Type 2 diabetes yifan itus without complication (ICD-10 - E11.9) 09/05/2024 Pure hypercholesterolemia (ICD-10 - E78.00) 09/05/2024 Vitamin D deficiency (ICD-10 - E55.9) Plan Of Treatment Next Appt Details Provider Name:Francis jack, 09/08/2025 07:45:00 AM, [address] [place] [address], [address] [place] [address], [phone], Provider Name:Francis jack, 09/19/2025 01:30:00 PM, [address] [place] [address], [address], [phone], Provider Name:Francis overtonr, 12/30/2025 07:00:00 AM, [address] [place] [address], [address], [phone], Provider Name:Francis Valiente ier, 01/05/2026 11:00:00 AM, [address] [place] [address], [address], [phone], Progress Notes * Sara QUIROZ MDOB:[birth year] (74 yo F)Acc No.[id number]:09/05/2024 Progress Note Patient: Suresh GIANCARLO Sara Evelyn Provider: Luis Brown MD :1950 A ge:73 Y S ex:Female Date:09/05/2024 [id number] Subjective: * Chief Complaints: * 1 . Yearly labs. * Medical History: Objective: * Vitals: Assessment: * Assessment: 1. B lood tests for routine general physical examination - Z00.00 (Primary) 2 .?Essential hypertension - I10 3 . T ype 2 diabetes mellitus without complication - E11.9 4 . P ure hypercholesterolemia - E78.00 5 . V itamin D deficiency - E55.9 Plan: * Treatment: 2. E ssential hypertension L AB: Complete Blood Count Auto Diff (Collection Date & Time - 09/06/2024 12:12 PM) L AB: Comprehensive [place]. Panel Fast (Collection Date & Time - 09/06/2024 12:12 PM) L AB: Lipid Panel (Collection Date & Time - 09/06/2024 12:12 PM) L AB: Vitamin D 25-OH Total (Collection Date & Time - 09/06/2024 12:12 PM) L AB: Microalbumin, Random (Collection Date & Time - 09/06/2024 12:12 PM) L AB: Hemoglobin A1c (Collection Date & Time - 09/06/2024 12:12 PM) L AB: UA ClnCatch+Micro w/rflx Cult (Collection Date & Time - 09/06/2024 12:12 PM) 3. T ype 2 diabetes mellitus without complication L AB: Complete Blood Count Auto Diff (Collection Date & Time - 09/06/2024 12:12 PM) L AB: Comprehensive [place]. Panel Fast (Collection Date & Time - 09/06/2024 12:12 PM) L AB: Lipid Panel (Collection Date & Time - 09/06/2024 12:12 PM) L AB: Vitamin D 25-OH Total (Collection Date & Time - 09/06/2024 12:12 PM) L AB: Microalbumin, Random (Collection Date & Time - 09/06/2024 12:12 PM) L AB: Hemoglobin A1c (Collection Date & Time - 09/06/2024 12:12 PM) L AB: UA ClnCatch+Micro w/rflx Cult (Collection Date & Time - 09/06/2024 12:12 PM) 4. P ure hypercholesterolemia L AB: Complete Blood Count Auto Diff (Collection Date & Time - 09/06/2024 12:12 PM) L AB: Comprehensive [place]. Panel Fast (Collection Date & Time - 09/06/2024 12:12 PM) L AB: Lipid Panel (Collection Date & Time - 09/06/2024 12:12 PM) L AB: Vitamin D 25-OH Total (Collection Date & Time - 09/06/2024 12:12 PM) L AB: Microalbumin, Random (Collection Date & Time - 09/06/2024 12:12 PM) L AB: Hemoglobin A1c (Collection Date & Time - 09/06/2024 12:12 PM) L AB: UA ClnCatch+Micro w/rflx Cult (Collection Date & Time - 09/06/2024 12:12 PM) 5. V itamin D deficiency L AB: Complete Blood Count Auto Diff (Collection Date & Time - 09/06/2024 12:12 PM) L AB: Comprehensive [place]. Panel Fast (Collection Date & Time - 09/06/2024 12:12 PM) L AB: Lipid Panel (Collection Date & Time - 09/06/2024 12:12 PM) L AB: Vitamin D 25-OH Total (Collection Date & Time - 09/06/2024 12:12 PM) L AB: Microalbumin, Random (Collection Date & Time - 09/06/2024 12:12 PM) L AB: Hemoglobin A1c (Collection Date & Time - 09/06/2024 12:12 PM) L AB: UA ClnCatch+Micro w/rflx Cult (Collection Date & Time - 09/06/2024 12:12 PM) * * The named appointment provid er may or may not be the originator of this progress note, and it is not deemed complete until electronically signed by the appointment provider. Sign off status: Pending * Provider: Luis Brown MD Date: 11/06/2023 Generated for Kathryn springer/Aydin/Catalina on: 09/16/2024 04:57 PM EST
--- OUTSIDE RECORDS SUMMARY | 2024-09-12 08:00 | XMS_ITS ---
Author Organization Francis Brown MD Address [address] [place], [place] [phone] Care Team Providers Care Banquet Pilot Name Role Phone Francis Brown Primary Care Provider Allergies No Known Allergies REASON FOR VISIT annual visit Medications Medication SIG (Take, Route, Frequency, Duration) Notes Start Date End Date Status Atorvastatin Calcium 20 MG TAKE 1 TABLET BY MOUTH EVERY DAY Active metFORMIN HCl 500 MG TAKE 1 TABLET BY MOUTH TWICE A DAY WITH MEALS Active amLODIPine Besylate 5 MG TAKE 1 TABLET B Y MOUTH EVERY DAY FOR 30 DAYS Active ProAir HFA 108 (90 Base) MCG/ACT 2 puffs as needed Inhalation every 4 hrs 04/13/2015 Not-Taking Flonase 50 MCG/ACT 1 spray in each nostril Nasally Once a day 10/26/2015 Not-Taking hydroCHLOROthiazide 12.5 MG 1 capsule in the morning Orally Once a day 01/23/2023 Active Lisinopril 10 MG take 1 tablet by mouth every day for 90 days Orally Once a day Active Aspirin 81 MG 1 tablet Orally Once a day Active Social History Tobacco Use: Social History Observation Description Date Details (start date - stop date) Never Smoker NA - NA Tobacco Use/Smoking Question Answer Notes Patient is a nonsmoker Additional Findings: Tobacco Non-User Cu rrent non-smoker, currently using no form of tobacco Alcohol Screen Question Answer Notes Did you have a drink containing alcohol in the p ast year? No Points 0 Interpretation Negative Vital Signs Blood pressure systolic 130 mm Hg 09/12/19 25 Blood pressure diastolic 78 mm Hg 025 Height 65.50 in 09/12/2024 Weight 202 lbs 09/12/2024 BMI 33.10 kg/m2 09/12/2024 weight is down 10 pounds sin 04-30-24 Encounters Encounter Location Date Provider Diagnosis Francis Brown MD [address] [place] [address] Drive [address] [place], [place] [phone] 09/12/2024 Francis Brown Essential hypertensi on I10 ; Annual physical exam Z00.00 ; History of breast cancer Z85.3 ; Type 2 diabetes mellitus without complication E11.9 ; Pure hypercholesterolemia E78.00 ; Type 2 diabetes, controlled, 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 and Depression screening Z13.31 Assessments Encounter Date Diagnosis (ICD Code) Assessment Notes Treatment Notes Treatment Clinical Notes Section Notes 09/12/2024 Essential hypertensi on (ICD-10 - I10) doing well on meds, will continue current regiment 09/12/2024 Annual physical exam (ICD-10 - Z00.00) labs reviewed and discussed with patient 09/12/2024 History of breast ca ncer (ICD-10 - Z85.3) had mammo 2 days ago 09/12/2024 Type 2 diabetes yifan itus without complication (ICD-10 - E11.9) a1c improving on diet 09/12/2024 Pure hypercholesterolemia (ICD-10 - E78.00) good cholesterols table, will continue current regiment 09/12/2024 Type 2 diabetes, controlled, with neuropathy (ICD-10 - E11.40) doing well, will continue current regiment 09/12/2024 Depression screening (ICD-10 - Z13.31) negtive screen Plan Of Treatment Medication Medication Name Sig Start Date Stop Date Notes Atorvastatin Calcium 20 MG TAKE 1 TABLET BY MOUTH EVERY DAY metFORMIN HCl 500 MG TAKE 1 TABLET BY MO UTH TWICE A DAY WITH MEALS amLODIPine Besylate 5 MG TAKE 1 TABLET B Y MOUTH EVERY DAY FOR 30 DAYS hydroCHLOROthiazide 12.5 MG 1 capsule in the morning Orally Once a day 01/23/2023 Lisinopril 10 MG take 1 tablet by kirill th every day for 90 days Orally Once a day Treatment Notes Assessment Notes Essential hypertension doing well on med s, will continue current regiment Annual physical exam labs reviewed and d iscussed with patient History of breast cancer had mammo 2 day s ago Type 2 diabetes mellitus without complic ation a1c improving on diet Pure hypercholesterolemia good cholester olstable, will continue current regiment Type 2 diabetes, controlled, with neurop athy doing well, will continue current regiment Depression screening negtive screen Next Appt Details Follow Up: 6 Months, Reason: Provider Name:Francis jack, 09/08/2025 07:45:00 AM, [address] [place] [address], [address], [phone], Provider Name:Francis jack, 09/19/2025 01:30:00 PM, [address] [place] [address], [address], [phone], Provider Name:Francis jack, 12/30/2025 07:00:00 AM, [address] [place] [address], [address], [phone], Provider Name:Francis jack, 01/05/2026 11:00:00 AM, [address] [place] [address], [address], [phone], Progress Notes * Sara QUIROZ MDOB:[birth year] (74 yo F)Acc No.[id number]:09/12/2024 Progress Notes Patient: Suresh Sara mishra Provider: Luis Brown MD :1950 A ge:74 Y S ex:Female Date:09/12/2024 [id number] Subjective: * Chief Complaints: * A nnual visit * HPI: D epression Screening: PHQ-9 L ittle interest or pleasure in doing things N ot at all, F eeling down, depressed, or hopeless N ot at all, T rouble falling or staying asleep, or sleeping too much N ot at all, F eeling tired or having little energy N ot at all, P oor appetite or overeating N ot at all, F eeling bad about yourself or that you are a failure, or have let yourself or your family down N ot at all, T rouble concentrating on things, such as reading the newspaper or watching television N ot at all, M oving or speaking so slowly that other people could have noticed; or the opposite, being so fidgety or restless that you have been moving around a lot more than usual N ot at all, T houghts that you would be better off or of hurting yourself in some way N ot at all, T otal Score 0 . I nterpretation and Intervention D epression Screening Findings N egative, F ollow-Up for Depression : review of PHQ-9 found negative result, no follow-up needed. here for yearly evaluation. C ommunication Needs: Communication Needs D oes the patient have a hearing impairment N o, D oes the patient have a vision impairment? Y es, I f yes, what is the vision impairment? G lasses, D oes the patient have a cognition impairment? N o. F all Risk: History H ave you had any falls with injury in the past year? N o, H ave you had two or more falls in the past year? N o. S SEYMOUR Questions: SDOH Questions I n the past year have you been worried about losing housing? N o, I n the past year have you or any family members you live with been unable to get any of the following when it was really needed? Check all that apply: N one. * ROS: G eneral/Constitutional: Change in appetite d enies. C hills d enies. F ever d enies. O phthalmologic: Blurred vision d enies. D ischarge d enies. P ain d enies. E NT: Decreased hearing d enies. S ore throat d enies.?Swollen glands d enies. E ndocrine: Cold intolerance d enies. E xcessive thirst d enies. H eat intolerance d enies. W eight loss d enies. R espiratory: Cough d enies. S hortness of breath at rest d enies. S hortness of breath with exertion d enies. W heezing d enies. C ardiovascular: Chest pain at rest d enies. C hest pain with exertion?denies. I rregular heartbeat d enies. S hortness of breath d enies. ? G astrointestinal: Abdominal pain d enies. C hange in bowel habits d enies. D iarrhea d enies. N ausea d enies. R ectal bleeding d enies. V omiting d enies . G enitourinary: Blood in urine d enies. D ifficulty urinating d enies. F requent urination d enies. U rinary incontinence D enies. M usculoskeletal: Painful joints d enies. W eakness d enies. ? S kin: Dry skin d enies. I tching d enies. D enies?Mole(s), changes in moles, new moles or any lesions of concern. D enies P hotosensitivity. R justin d enies. N eurologic: Dizziness d enies. F ainting d enies. H eadache?denies. * Medical History: * Surgical History: * Hospitalization/Major Diagno stic Procedure: * Family History: F ather: 71 yrs, bladder cancer, diagnosed with Cancer. M other: 72 yrs, cardiac disease. 4 brother(s) , 4 sister(s) - healthy. 3 daughter(s) - healthy. . Denies mental health/substance abuse family history, Denies mental health/substance abuse family history, Denies mental health/substance abuse family history, No pertinent family medical history. * Social History: T obacco Use: T obacco Use/Smoking P atient is a n onsmoker, A dditional Findings: Tobacco Non-User C urrent non-smoker, currently using no form of tobacco. D rugs/Alcohol: A lcohol Screen D id you have a drink containing alcohol in the past year? N o, P oints 0 , I nterpretation N egative. M iscellaneous: C affeine: yes, frequency:, 1-2 cups per day OCC usually decaff. Children: yes. no Community involvements. no Exercise. Home smoke detector use: yes. Housing: owning. Living with: spouse. Marital status: . Occupation: weeks/months/years, works full-time. Pets: dogs:2. no Travel outside of the [place]. * Medications: T akingAspirin 81 MG Tablet Delayed Release 1 tablet Orally Once a dayAtorvastatin Calcium 20 MG Tablet TAKE 1 TABLET BY MOUTH EVERY DAY hydroCHLOROthiazide 12.5 MG Capsule 1 capsule in the morning Orally Once a dayLisinopril 10 MG Tablet take 1 tablet by mouth every day for 90 days Orally Once a dayamLODIPine Besylate 5 MG Tablet TAKE 1 TABLET BY MOUTH EVERY DAY FOR 30 DAYS metFORMIN HCl 500 MG Tablet TAKE 1 TABLET BY MOUTH TWICE A DAY WITH MEALS Taking Aspirin 81 MG Tablet Delayed Release 1 tablet Orally Once a dayTaking Atorvastatin Calcium 20 MG Tablet TAKE 1 TABLET BY MOUTH EVERY DAY Taking hydroCHLOROthiazide 12.5 MG Capsule 1 capsule in the morning Orally Once a dayTaking Lisinopril 10 MG Tablet take 1 tablet by mouth every day for 90 days Orally Once a dayTaking amLODIPine Besylate 5 MG Tablet TAKE 1 TABLET BY MOUTH EVERY DAY FOR 30 DAYS Taking metFORMIN HCl 500 MG Tablet TAKE 1 TABLET BY MOUTH TWICE A DAY WITH MEALS Not-Taking/PRNFlonase 50 MCG/ACT Suspension 1 spray in each [...] Verified] Objective: * Vitals: H t: 65.50, Wt:202, BMI:33.10, BP:130/78 weight is down 10 pounds since 04-30-24. * P ast Orders: L ab:Lipid Panel (Order Date - 09/05/2024) (Collection Date - 09/06/2024) Value Reference Range Triglycerides 111 <150 - mg/dL Cholesterol 141 <200 - mg/dL LDL Cholesterol Calculated 73 <100 - mg/dL HDL Cholesterol 46 >40 - mg/dL L ab:Microalbumin, Random (Order Date - 09/05/2024) (Collection Date - 09/06/2024) Value Reference Range Creatinine Urine 273.30 - mg/dL Microalbumin Urine 12.0 - mg/L Microalbum Creatinine Ratio Ur 4.3 <30 - ug/ mg cr L ab:Hemoglobin A1c (Order Date - 09/05/2024) (Collection Date - 09/06/2024) Value Reference Range Hemoglobin A1c % 6.5 H <6.0 - % Estimated Average Glucose 140 - mg/dL L ab:Complete Blood Count Auto Diff (Order Date - 09/05/2024) (Collection Date - 09/06/2024) Value Reference Range White Blood Count 4.6 L 4.8-10.8 - X10*3/uL Red Blood Count 4.59 4.20-5.50 - X10*6/uL Hemoglobin 13.7 12.0-16.0 - g/dl Hematocrit 41.2 37.0-47.0 - % Mean Corpuscular Volume 89.8 80.0-98.0 - fL Mean Corpuscular Hemoglobin 29.8 27.0-33.0 - pg Mean Corpuscular HGB Conc 33.3 31.0-35.0 - g/ dl Red Cell Distribution Width 14.6 11.0-16.0 - % Platelet Count 269 160-400 - X10*3/uL Mean Platelet Volume 10.6 9.4-12.3 - fL Neutrophils Percent Auto 59.1 45-73 - % Imm Gran Pct Auto 0.0 0.0-0.4 - % Lymphocytes Percent Auto 27.3 20-40 - % Monocytes Percent Auto 8.6 2-11 - % Eosinophils Percent Auto 3.5 0-4 - % Basophils Percent Auto 1.5 0-2 - % NRBC Pct Auto 0.0 0.0-0.2 - /100WBC Neutrophils Absolute Auto 2.7 2.0-8.3 - x10* 3/uL Imm Gran Abs Auto 0.00 0.00-0.03 - X10*3/uL Lymphocytes Absolute Auto 1.2 1.2-4.9 - X10* 3/uL Monocytes Absolute Auto 0.4 0.1-1.2 - X10*3/ uL Eosinophils Absolute Auto 0.2 0.0-0.4 - X10* 3/uL Basophils Absolute Auto 0.1 0.0-0.2 - X10*3/ uL NRBC Abs Auto 0.000 0.0-0.012 - X10*3/uL L ab:UA ClnCatch+Micro w/rflx Cult (Order Date - 09/05/2024) (Collection Date - 09/06/2024) Value Reference Range Color Urine Dark Yellow - Appearance Urine Turbid - PH 5.5 5.0-9.0 - Glucose Urine UA Negative Negative - mg/dL Urine Blood Negative Negative - Specific [place] - Urine 1.025 1.005-1.025 - Urine Protein Negative Neg-Trace - mg/dL Urine Ketones Trace Negative - mg/dL Nitrite Urine Negative Negative - Leukocyte Esterase Urine Small (1+) A Negative - RBC Urine 0-2 0-2 - /HPF WBC Urine 0-5 0-5 - /HPF Squamous Epithelial Cell Urine 6-10 0-2 - /HP F Bacteria Urine 1+ None Seen - Hyaline Casts Urine 0-2 0-2 - /LPF L ab:Comprehensive [place]. Panel Fast (Order Date - 09/05/2024) (Collection Date - 09/06/2024) Value Reference Range Sodium 141 135-145 - mmol/L Bilirubin Total 0.9 0.0-1.0 - mg/dL Aspartate Amino Transferase 21 5-31 - U/L Alanine Aminotransferase 23 0-31 - U/L Total Protein 7.2 6.5-8.0 - g/dL Albumin Level 4.2 3.5-5.0 - g/dL Alkaline Phosphatase 79 39-117 - U/L Potassium 3.7 3.3-5.1 - mmol/L Chloride 106 96-108 - mmol/L Carbon Dioxide 27 22-29 - mmol/L Anion Gap 12 12-20 - Blood Urea Nitrogen 16 9-16 - mg/dL Creatinine 0.78 0.5-1.4 - mg/dL Estimated Glomerular Filt Rate > 60 - Glucose Fasting 106 H 60-99 - mg/dL Calcium 10.1 8.4-10.2 - mg/dL * Examination: G eneral Examination: GENERAL APPEARANCE: w ell developed, well nourished, in no acute distress. HEAD: n ormocephalic, atraumatic. EYES: p upils equal, round, reactive to light and accommodation, sclera non-icteric. EARS: n ormal. ORAL CAVITY: m ucosa moist. THROAT: c lear. NECK/THYROID: n bautista supple, full range of motion, no cervical lymphadenopathy, no bruits. SKIN: w arm and dry, no suspicious lesions. HEART: r egular rate and rhythm, S1, S2 normal, no murmurs.? LUNGS: c lear to auscultation bilaterally. BREASTS: N o mass, no lump. ABDOMEN: s oft, nontender, nondistended, bowel sounds present, normal, no organomegaly , no masses palpable. RECTAL EXAM: i s going for colonoscopy this year.. FEMALE GENITOURINARY: d one by botany laboratory assistant. EXTREMITIES: n o clubbing, cyanosis, or edema. NEUROLOGIC: n onfocal, motor strength normal upper and lower extremities, sensory exam intact. FOOT EXAM: . Assessment: * Assessment: 1. A nnual physical exam - Z00.00 (Primary) 2 . E ssential hypertension - I10 3 .?History of breast cancer - Z85.3 4 . T ype 2 diabetes mellitus without complication - E11.9 5 . P ure hypercholesterolemia - E78.00 6 . T ype 2 diabetes, controlled, with neuropathy - E11.40 7 . D epression screening - Z13.31 Plan: * Treatment: 2. E ssential hypertension Continue hydroCHLOROthiazide Capsule, 12.5 MG, 1 capsule in the morning, Orally, Once a day; C ontinue Lisinopril Tablet, 10 MG, take 1 tablet by mouth every day for 90 days, Orally, Once a day; Continue amLODIPine Besylate Tablet, 5 MG, TAKE 1 TABLET BY MOUTH EVERY DAY FOR 30 DAYS. ? Notes: doing well on meds, will continue current regiment 3. H istory of breast cancer Notes: had mammo 2 days ago 4. T ype 2 diabetes mellitus without complication Notes: a1c improving on diet 5. P ure hypercholesterolemia Continue Atorvastatin Calcium Tablet, 20 MG, TAKE 1 TABLET BY MOUTH EVERY DAY. Notes: good cholesterolstable, will continue current regiment 6. T ype 2 diabetes, controlled, with neuropathy Continue metFORMIN HCl Tablet, 500 MG, TAKE 1 TABLET BY MOUTH TWICE A DAY WITH MEALS. Notes: doing well, will continue current regiment 7. D epression screening Notes: negtive screen * Procedure Codes: * Follow Up: 6 Months * * Sign off status: Completed true * Provider: Luis Brown MD Date: 0 09/12/2024 Generated for Kathryn springer/Aydin/eTransmitting on: 09/16/2024 04:56 PM EST History and Physical Notes * HPI (History of Present Illness) Category Sub-Category Detail Notes Category Not es Depression Screening PHQ-9 Little inte rest or pleasure in doing things: Not at all here for yearly evaluation Feeling down, depressed, or hopeless: No t at all Trouble falling or staying asleep, or sl eeping too much: Not at all Feeling tired or having little energy: N ot at all Poor appetite or overeating: Not at all Feeling bad about yourself o r that you are a failure, or have let yourself or your family down: Not at all Trouble concentrating on thi ngs, such as reading the newspaper or watching television: Not at all Moving or speaking so slowly that other people could have noticed; or the opposite, being so fidgety or restless that you have been moving around a lot more than usual: Not at all Thoughts that you would be b anjana off or of hurting yourself in some way: Not at all Total Score: 0 Interpretation and Intervention Depression Franki yates Findings: Negative Follow-Up for Depression: : review of PH Q-9 found negative result, no follow-up needed SDOH Questions SDOH Questions In the past year have you been worried about losing housing?: No In the past year have you or any family members you live with been unable to get any of the following when it was really needed? Check all that apply:: None Fall Risk History Have you had any falls with injury i n the past year?: No Have you had two or more falls in the year?: No Communication Needs Communication Needs Does the patient have a hearing impairment: No Does the patient have a vision impairmen t?: Yes If yes, what is the vision impairment?: Glasses Does the patient have a cognition impair ment?: No Examination Category Sub-Category Detail Notes Category Not es General Examination GENERAL APPEARANCE: well dev eloped, well nourished, in no acute distress HEAD: normocephalic, atrau matic EYES: pupils equal, round, reactive to light and accommodation, sclera non-icteric EARS: normal THROAT: clear NECK/THYROID: neck supple, full ra nge of motion, no cervical lymphadenopathy, no bruits HEART: regular rate and rhy thm, S1, S2 normal, no murmurs LUNGS: clear to auscultatio n bilaterally ABDOMEN: soft, nontender, non distended, bowel sounds present, normal, no organomegaly , no masses palpable NEUROLOGIC: nonfocal, motor stre ngth normal upper and lower extremities, sensory exam intact SKIN: warm and dry, no ramya picious lesions EXTREMITIES: no clubbing, cyanosi s, or edema BREASTS: No mass, no lump RECTAL EXAM: is going for colonos copy this year. FEMALE GENITOURINARY: done by botany laboratory assistant ORAL CAVITY: mucosa moist FOOT EXAM: Date: 09/12/2024 normal pinprick . normal pulse. normal light touch.
--- OUTSIDE RECORDS SUMMARY | 2024-11-12 09:04 | XMS_ITS ---
Author Organization Francis Brown MD Address [address] [place] [phone] Care Team Providers Care Insole Presser Name Role Phone Francis Brown Primary Care Provider REASON FOR VISIT eye exam Encounters Encounter Location Date Provider Diagnosis Francis Brown MD [address] [facility] [address] [place] [phone] 11/12/2024 Francis Brown Plan Of Treatment Next Appt Details Provider Name:Francis jack, 09/08/2025 07:45:00 AM, [address] [place] [address], [address], [phone], Provider Name:Francis jack, 09/19/2025 01:30:00 PM, [address] [place] [address], [address], [phone], Provider Name:Francis jack, 12/30/2025 07:00:00 AM, [address] [place] [address], [address], [phone], Provider Name:Francis jack, 01/05/2026 11:00:00 AM, [address], [address], [place], [place], [phone], Progress Notes * Sara QUIROZ MDOB:[birth year] (74 yo F)Acc No.[id number]:11/12/2024 Patient: Suresh GIANCARLO Sara Rivas :1950 A ge:74 Y S ex:Female Address: [address], [place] [address] * true * Date: Generated for Kathryn springer/Aydin/eTransmitting on: 09/16/2024 04:56 PM EST
--- OUTSIDE RECORDS SUMMARY | 2025-03-21 03:00 | XMS_ITS ---
Author Organization Francis Brown MD Address [address] [place], [place] [phone] Care Team Providers Care Threading Machine Tender Name Role Phone Francis Brown Primary Care Provider Results Component Value Reference Range Notes Liver Panel Reviewed date:03/21/2025 12:50:45 PM Interpretation: Performing Lab:[facility], [address] [place] [phone] Notes/Report: Bilirubin Total 1.0 0.0-1.0 mg/dL Bilirubin Direct 0.2 0.0-0.5 mg/dL Aspartate Amino Transferase 21 5-31 U/L Alanine Aminotransferase 29 0-31 U/L Total Protein 6.8 6.5-8.0 g/dL Albumin Level 4.3 3.5-5.0 g/dL Alkaline Phosphatase 85 39-117 U/L Glucose Fasting Reviewed date:03/21/2025 12:50:28 PM Interpretation: Performing Lab:[facility], [address] [place] [phone] Notes/Report: Glucose Fasting 93 60-99 mg/dL Lipid Panel with Reflex Reviewed date:03/21/2025 12:51:09 PM Interpretation: Performing Lab:[facility], [address] [place] [phone] Notes/Report: Triglycerides 92 <150 mg/dL Desirable Triglyceride: less than 150 mg/dL Borderline High Triglyceride 150-199 mg/dL High Triglyceride: 200-499 mg/dL Very High Triglyceride: greater than or equal to 5OO mg/dL Cholesterol 156 <200 mg/dL Desirable Cholesterol: less than 200 mg/dL Borderline High Cholesterol: 200-239 mg/dL High Cholesterol: greater than 239 mg/dL LDL Cholesterol Calculated 86 <100 mg/dL Desirable LDL: less than 100 mg/dL Near Optimal/Above Optimal LDL: 110-129 mg/dL Borderline High LDL: 130-159 mg/dL High LDL: 160-189 mg/dL Very High LDL: greater than or equal to 190 mg/dL HDL Cholesterol 52 >40 mg/dL Desirable HDL: greater than 40 mg/dL Note: This HDL assay may give artificially low results in patients with liver disease. Hemoglobin A1c Reviewed date:03/21/2025 12:45:57 PM Interpretation: Performing Lab:[facility], [address] [place] [phone] Notes/Report: Hemoglobin A1c % 5.7 <6.0 % Hemoglobin A1C Reference Range Adults: 4.8 - 6.0 % Non diabetic: < 6.0 % Goal: < 7.0 % Additional Action Suggested: > 8.0 % Note: Hemoglobin A1c results are invalid for patients with abnormal amounts of HbF. Blood transfusions may impact the HbA1c concentration in the patient sample. Estimated Average Glucose 117 eAG = Estimated average glucose which is %A1C expressed as average glucose, using the formula of the F0O-Lkbutbo Average Glucose study (ADAG), Diabetes Care, Vol.31,#8, Apr. 2007 REASON FOR VISIT FASTING LIPIDS Encounters Encounter Location Date Provider Diagnosis Francis Brown MD [address] [place] [address] Drive [address] [place], [place] [phone] 03/21/2025 Francis Brown Type 2 diabetes yifan itus without complication E11.9 and Pure hypercholesterolemia E78.00 Assessments Encounter Date Diagnosis (ICD Code) Assessment Notes Treatment Notes Treatment Clinical Notes Section Notes 03/21/2025 Type 2 diabetes yifan itus without complication (ICD-10 - E11.9) 03/21/2025 Pure hypercholesterolemia (ICD-10 - E78.00) Plan Of Treatment Next Appt Details Provider Name:Francis Valiente ier, 09/08/2025 07:45:00 AM, [address], [address], [place], [place], [phone], Provider Name:Francis Valiente ier, 09/19/2025 01:30:00 PM, [address], [address], [place], [phone], Provider Name:Francis Valiente ier, 12/30/2025 07:00:00 AM, [address], [address], [place], [phone], Provider Name:Francis Valiente ier, 01/05/2026 11:00:00 AM, [address], Suite [facility], [place], [place], [phone], Progress Notes * Sara QUIROZ MDOB:[birth year] (74 yo F)Acc No.[id number]:03/21/2025 Progress Note Patient: Franklin GAITANna Evelyn Provider: Luis Brown MD :1950 A ge:74 Y S ex:Female Date:03/21/2025 Address:[address] [place] [id number] Subjective: * Chief Complaints: * 1 . FASTING LIPIDS. * Medical History: Objective: * Vitals: Assessment: * Assessment: 1. T ype 2 diabetes mellitus without complication - E11.9 (Primary) 2 . P ure hypercholesterolemia - E78.00 Plan: * Treatment: 2. P ure hypercholesterolemia L AB: Liver Panel (Collection Date & Time - 03/21/2025 10:56 AM) L AB: Glucose Fasting (Collection Date & Time - 03/21/2025 10:56 AM) L AB: Lipid Panel with Reflex (Collection Date & Time - 03/21/2025 10:56 AM) L AB: Hemoglobin A1c (Collection Date & Time - 03/21/2025 10:56 AM) * * The named appointment provid er may or may not be the originator of this progress note, and it is not deemed complete until electronically signed by the appointment provider. Sign off status: Pending * Provider: Luis Brown MD Date: 0 03/21/2025 Generated for Kathryn springer/Aydin/Catalina on: 09/16/2024 04:56 PM EST
--- OUTSIDE RECORDS SUMMARY | 2025-03-28 08:30 | XMS_ITS ---
Author Organization Francis Brown MD Address [address] [place], [place] [phone] Care Team Providers Care Glass Ribbon Machine Operator Name Role Phone Francis Brown Primary Care Provider [phone] Allergies No Known Allergies REASON FOR VISIT 6 MO F/U Medications Medication SIG (Take, Route, Frequency, Duration) Notes Start Date End Date Status Lisinopril 10 MG take 1 tablet by mouth every day for 90 days Orally Once a day Active metFORMIN HCl 500 MG TAKE 1 TABLET BY MOUTH TWICE A DAY WITH MEALS Active ProAir HFA 108 (90 Base) MCG/ACT 2 puffs as needed Inhalation every 4 hrs 04/13/2015 Not-Taking Flonase 50 MCG/ACT 1 spray in each nostril Nasally Once a day 10/26/2015 Not-Taking amLODIPine Besylate 5 MG TAKE 1 TABLET B Y MOUTH EVERY DAY FOR 30 DAYS Active hydroCHLOROthiazide 12.5 MG 1 capsule in the morning Orally Once a day 01/23/2023 Not-Taking Aspirin 81 MG 1 tablet Orally Once a day Active Atorvastatin Calcium 20 MG TAKE 1 TABLET BY MOUTH EVERY DAY Active Vital Signs Blood pressure systolic 112 mm Hg 03/28/20 25 Blood pressure diastolic 60 mm Hg 025 Height 65.50 in 03/28/2025 Weight 187 lbs 03/28/2025 BMI 30.64 kg/m2 03/28/2025 weight is down 15 pounds sin ce 1-2-25 Encounters Encounter Location Date Provider Diagnosis Francis Brown MD [address] [place] [address] [place] [phone] 03/28/2025 Francis Brown Type 2 diabetes, controlled, 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 ; Pure hypercholesterolemia E78.00 and Essential hypertension I10 Assessments Encounter Date Diagnosis (ICD Code) Assessment Notes Treatment Notes Treatment Clinical Notes Section Notes 03/28/2025 Type 2 diabetes, controlled, with neuropathy (ICD-10 - E11.40) doing well on meds, will continue current regiment 03/28/2025 Pure hypercholesterolemia (ICD-10 - E78.00) doing well on meds, will contiue current regiment 03/28/2025 Essential hypertensi on (ICD-10 - I10) stable, will continuecurent regiment Plan Of Treatment Medication Medication Name Sig Start Date Stop Date Notes Lisinopril 10 MG take 1 tablet by kirill th every day for 90 days Orally Once a day metFORMIN HCl 500 MG TAKE 1 TABLET BY MO UTH TWICE A DAY WITH MEALS amLODIPine Besylate 5 MG TAKE 1 TABLET B Y MOUTH EVERY DAY FOR 30 DAYS Atorvastatin Calcium 20 MG TAKE 1 TABLET BY MOUTH EVERY DAY Treatment Notes Assessment Notes Type 2 diabetes, controlled, with neurop athy doing well on meds, will continue current regiment Pure hypercholesterolemia doing well on meds, will contiue current regiment Essential hypertension stable, will cont inuecurent regiment Next Appt Details Provider Name:Francis jack, 09/08/2025 07:45:00 AM, [address] [place] [address], [place] [address], [place], [place], [phone], Provider Name:Francis jack, 09/19/2025 01:30:00 PM, [address] [place] [address], [place] [address], [place], [place], [phone], Provider Name:Francis jack, 12/30/2025 07:00:00 AM, [address] [place] [address], [place] [address], [place], [place], [phone], Provider Name:Francis jack, 01/05/2026 11:00:00 AM, [address], [address], [place], [place], [phone], Progress Notes * Sara QUIROZ MDOB:[birth year] (74 yo F)Acc No.[id number]:03/28/2025 Progress Notes Patient: Sara GAITAN Provider: Luis Brown MD :1950 A ge:74 Y S ex:Female Date:03/28/2025 Address: [address], [facility], [phone] Subjective: * Chief Complaints: * 6 MO F/U * HPI: S ymptom(s): patient is a 74 yo female here for 6 month follow up visit/ has been on diet and sugars have been good. * ROS: G eneral/Constitutional: Denies C hills. D enies F atigue. D enies F ever. D enies H eadache. E NT: Denies S ore throat. E ndocrine: Denies D ifficulty sleeping. D enies D izziness.?Denies E xcessive sweating. D enies E xcessive thirst. D enies F requent urination. R espiratory: Denies C ough. D enies S hortness of breath at rest. D enies S hortness of breath with exertion. G astrointestinal: Denies D iarrhea. D enies N ausea. * Medical History: * Surgical History: * Hospitalization/Major Diagno stic Procedure: * Medications: T akingAspirin 81 MG Tablet Delayed Release 1 tablet Orally Once a day Lisinopril 10 MG Tablet take 1 tablet by mouth every day for 90 days Orally Once a day amLODIPine Besylate 5 MG Tablet TAKE 1 TABLET BY MOUTH EVERY DAY FOR 30 DAYS metFORMIN HCl 500 MG Tablet TAKE 1 TABLET BY MOUTH TWICE A DAY WITH MEALS Atorvastatin Calcium 20 MG Tablet TAKE 1 TABLET BY MOUTH EVERY DAY Taking Aspirin 81 MG Tablet Delayed Release 1 tablet Orally Once a day Taking Lisinopril 10 MG Tablet take 1 tablet by mouth every day for 90 days Orally Once a day Taking amLODIPine Besylate 5 MG Tablet TAKE 1 TABLET BY MOUTH EVERY DAY FOR 30 DAYS Taking metFORMIN HCl 500 MG Tablet TAKE 1 TABLET BY MOUTH TWICE A DAY WITH MEALS Taking Atorvastatin Calcium 20 MG Tablet TAKE 1 TABLET BY MOUTH EVERY DAY Not-Taking/PRNhydroCHLOROthiazide 12.5 MG Capsule 1 capsule in the morning Orally Once a day Flonase 50 MCG/ACT Suspension 1 spray in each nostril Nasally Once a day ProAir HFA 108 (90 Base) MCG/ACT Aerosol Solution 2 puffs as needed Inhalation every 4 hrs Medication List reviewed and reconciled with the patientNot-Taking/PRN hydroCHLOROthiazide 12.5 MG Capsule 1 capsule in the morning Orally Once a day Not-Taking/PRN Flonase 50 MCG/ACT Suspension 1 spray in each nostril Nasally Once a day Not-Taking/PRN ProAir HFA 108 (90 Base) MCG/ACT Aerosol Solution 2 puffs as needed Inhalation every 4 hrs Medication List reviewed and reconciled with the patient * Allergies: N .K.D.A.yes[Allergies Verified] Objective: * Vitals: H t: 65.50, Wt: 187, BMI:30.64, BP:112/60, Wt-k.82. weight is down 15 pounds since 09-12-24. * P ast Orders: L ab:Liver Panel (Order Date - 03/21/2025) (Collection Date & Time - 03/21/2025 10:56 AM) Value Reference Range Bilirubin Total 1.0 0.0-1.0 - mg/dL Bilirubin Direct 0.2 0.0-0.5 - mg/dL Aspartate Amino Transferase 21 5-31 - U/L Alanine Aminotransferase 29 0-31 - U/L Total Protein 6.8 6.5-8.0 - g/dL Albumin Level 4.3 3.5-5.0 - g/dL Alkaline Phosphatase 85 39-117 - U/L L ab:Glucose Fasting (Order Date - 03/21/2025) (Collection Date & Time - 03/21/2025 10:56 AM) Value Reference Range Glucose Fasting 93 60-99 - mg/dL L ab:Hemoglobin A1c (Order Date - 03/21/2025) (Collection Date & Time - 03/21/2025 10:56 AM) Value Reference Range Hemoglobin A1c % 5.7 <6.0 - % Estimated Average Glucose 117 - mg/dL L ab:Lipid Panel with Reflex (Order Date - 03/21/2025) (Collection Date & Time - 03/21/2025 10:56 AM) Value Reference Range Triglycerides 92 <150 - mg/dL Cholesterol 156 <200 - mg/dL LDL Cholesterol Calculated 86 <100 - mg/dL HDL Cholesterol 52 >40 - mg/dL * Examination: G eneral Examination: GENERAL APPEARANCE: a lert, well hydrated, in no distress.? SKIN: g ood turgor. HEART: n o murmurs, rubs, gallops, regular rate and rhythm.? LUNGS: n o wheezes, rales, rhonchi, good air movement, clear to auscultation bilaterally. Assessment: * Assessment: 1. 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 P ure hypercholesterolemia - E78.00 3 . E ssential hypertension - I10 ? Plan: * Treatment: 2. P ure hypercholesterolemia Continue Atorvastatin Calcium Tablet, 20 MG, TAKE 1 TABLET BY MOUTH EVERY DAY. Notes: doing well on meds, will contiue current regiment 3. E ssential hypertension Continue Lisinopril Tablet, 10 MG, take 1 tablet by mouth every day for 90 days, Orally, Once a day; C ontinue amLODIPine Besylate Tablet, 5 MG, TAKE 1 TABLET BY MOUTH EVERY DAY FOR 30 DAYS. Notes: stable, will continuecurent regiment * Procedure Codes: * * Sign off status: Completed true * Provider: Luis Brown MD Date: 0 03/28/2025 Generated for Kathryn springer/Aydin/Adelitaitting on: 1 09/16/2024 04:56 PM EST History and Physical Notes * HPI (History of Present Illness) Category Sub-Category Detail Notes Category Not es Symptom(s) patient is a 74 yo female here for 6 month follow up visit/ has been on diet and sugars have been good Examination Category Sub-Category Detail Notes Category Not es General Examination GENERAL APPEARANCE: alert, w ell hydrated, in no distress HEART: no murmurs, rubs, ga llops, regular rate and rhythm LUNGS: no wheezes, rales, r honchi, good air movement, clear to auscultation bilaterally SKIN: good turgor
--- OUTSIDE RECORDS SUMMARY | 2025-06-24 10:15 | XMS_ITS ---
Author Organization Francis Brown MD Address [address] [place], [place] [phone] Care Team Providers Care Photo Optics Technician Name Role Phone Francis Brown Primary Care Provider [phone] Allergies No Known Allergies REASON FOR VISIT CHECK MOLE, neck Medications Medication SIG (Take, Route, Frequency, Duration) Notes Start Date End Date Status hydroCHLOROthiazide 12.5 MG 1 capsule in the morning Orally Once a day 01/23/2023 Not-Taking Flonase 50 MCG/ACT 1 spray in each nostril Nasally Once a day 10/26/2015 Not-Taking ProAir HFA 108 (90 Base) MCG/ACT 2 puffs as needed Inhalation every 4 hrs 04/13/2015 Not-Taking Lisinopril 10 MG TAKE 1 TABLET BY MOUTH EVERY DAY for 90 Active amLODIPine Besylate 5 MG TAKE 1 TABLET B Y MOUTH EVERY DAY FOR 30 DAYS for 90 Active Atorvastatin Calcium 20 MG TAKE 1 TABLET BY MOUTH EVERY DAY Active Aspirin 81 MG 1 tablet Orally Once a day Active metFORMIN HCl 500 MG TAKE 1 TABLET BY MOUTH TWICE A DAY WITH MEALS Active Immunizations Vaccine Route Administration Date Status Comme nts Influenza High Dose IM Intramuscular 06/24/2025 Administer ed Problems Problem Type SNOMED Code ICD Code Onset Dates Problem Status W/U Status Risk Notes Problem Uterovaginal prolapse (35043871) Cystocele with prolapse (N81.4) Active confirmed Vital Signs Blood pressure systolic 138 mm Hg 06/24/20 25 Blood pressure diastolic 66 mm Hg 025 Height 65.50 in 06/24/2025 Weight 190 lbs 06/24/2025 BMI 31.13 kg/m2 06/24/2025 weight is up 3 pounds since 03-28-25 Encounters Encounter Location Date Provider Diagnosis Francis Brown MD [address] [place] [phone] 06/24/2025 Francis Brown Skin lesion L98.9 ; Cystocele with prolapse N81.4 and Encounter for administration of vaccine Z23 Assessments Encounter Date Diagnosis (ICD Code) Assessment Notes Treatment Notes Treatment Clinical Notes Section Notes 06/24/2025 Skin lesion (ICD-10 - L98.9) [facility] 06/24/2025 Cystocele with prolapse (ICD-10 - N81.4) going to go to [facility] urogynecology 06/24/2025 Encounter for administration of vaccine (ICD-10 - Z23) HD flu vaccine administered Plan Of Treatment Treatment Notes Assessment Notes Skin lesion [facility] Cystocele with prolapse going to go to [facility] u[facility]gynecology Encounter for administration of vaccine HD flu vaccine administered Next Appt Details Follow Up: 6 Months, Reason: Provider Name:Francis jack, 09/08/2025 07:45:00 AM, [address] [place] [address], [address], [phone], Provider Name:Francis jack, 09/19/2025 01:30:00 PM, [address] [place] [address], [address], [phone], Provider Name:Francis jack, 12/30/2025 07:00:00 AM, [address] [place] [address], [phone], Provider Name:Francis jack, 01/05/2026 11:00:00 AM, [address] [place] [address], [phone], Progress Notes * Sara QUIROZ MDOB:[birth year] (74 yo F)Acc No.[id number]:06/24/2025 Progress Notes Patient: Sara GAITAN Provider: Luis Brown MD :1950 A ge:74 Y S ex:Female Date:06/24/2025 Address: [address], [facility] [place], [id number] Subjective: * Chief Complaints: * C HECK MOLE, neck * HPI: S ymptom(s): patient is a 74 yo female here for check of mole/ here for follow up. having a lot of stress taking care of . * ROS: G eneral/Constitutional: Denies C hills. D enies F atigue. D enies F ever. D enies H eadache. E NT: Denies S ore throat. R espiratory: Denies C ough. D enies S hortness of breath at rest. D enies S hortness of breath with exertion. G astrointestinal: Denies D iarrhea. D enies N ausea. G enitourinary: Patient complaining of h as a prolapsed bladder. D enies A bdominal pain/swelling. D enies B lood in urine. A dmits F requent urination. A dmits P ain in lower back. D enies P ainful urination. * Medical History: * Surgical History: * Hospitalization/Major Diagno stic Procedure: * Medications: T akingAspirin 81 MG Tablet Delayed Release 1 tablet Orally Once a day metFORMIN HCl 500 MG Tablet TAKE 1 TABLET BY MOUTH TWICE A DAY WITH MEALS Atorvastatin Calcium 20 MG Tablet TAKE 1 TABLET BY MOUTH EVERY DAY Lisinopril 10 MG Tablet TAKE 1 TABLET BY MOUTH EVERY DAY amLODIPine Besylate 5 MG Tablet TAKE 1 TABLET BY MOUTH EVERY DAY FOR 30 DAYS Taking Aspirin 81 MG Tablet Delayed Release 1 tablet Orally Once a day Taking metFORMIN HCl 500 MG Tablet TAKE 1 TABLET BY MOUTH TWICE A DAY WITH MEALS Taking Atorvastatin Calcium 20 MG Tablet TAKE 1 TABLET BY MOUTH EVERY DAY Taking Lisinopril 10 MG Tablet TAKE 1 TABLET BY MOUTH EVERY DAY Taking amLODIPine Besylate 5 MG Tablet TAKE 1 TABLET BY MOUTH EVERY DAY FOR 30 DAYS Not-Taking/PRNhydroCHLOROthiazide 12.5 MG Capsule 1 capsule in [...] Objective: * Vitals: H t: 65.50, Wt: 190, BMI:31.13, BP:138/66, Wt-k.18. weight is up 3 pounds since 03-28-25. * Examination: G eneral Examination: GENERAL APPEARANCE: a lert, well hydrated, in no distress.? SKIN: a bnormal with a 3 mm irregular mole on her neck..? HEART: r egular rate and rhythm, no murmurs, rubs, gallops.? LUNGS: n o wheezes, rales, rhonchi, good air movement, clear to auscultation bilaterally. Assessment: * Assessment: 1. S kin lesion - L98.9 (Primary) 2 . C ystocele with prolapse - N81.4 3 . E ncounter for administration of vaccine - Z23 Plan: * Treatment: 2. C ystocele with prolapse Notes: going to go to [facility] urogynecology 3. E ncounter for administration of vaccine Notes: HD flu vaccine administered * Immunizations: Influenza High Dose : 0.5 mL (Dose No:1) (Route: Intramuscular) given by Varsha Dc , Office Staff on Left Deltoid * Procedure Codes: 9 0662 FLU VACC PRSV FREE INC [id number] ADMN FLU VAC NO FEE SCHED SAME DAY * Preventive Medicine: Immunizations: I nfluenza H ave you had a flu shot since the most recent May 12? Y es. * Follow Up: 6 Months * * Sign off status: Completed true * Provider: Luis Brown MD Date: Generated for Kathryn springer/Aydin/Homasmitting on: 09/16/2024 04:56 PM EST History and Physical Notes * HPI (History of Present Illness) Category Sub-Category Detail Notes Category Not es Symptom(s) patient is a 74 yo female here for check of mole/ here for follow up. having a lot of stress taking care of Examination Category Sub-Category Detail Notes Category Not es General Examination GENERAL APPEARANCE: alert, w ell hydrated, in no distress HEART: regular rate and rhy thm, no murmurs, rubs, gallops LUNGS: no wheezes, rales, r honchi, good air movement, clear to auscultation bilaterally SKIN: abnormal with a 3 mm irregular mole on her neck.
--- OUTSIDE RECORDS SUMMARY | 2025-07-17 16:56 | XMS_ITS | Patient Health Record ---
Author Organization [facility] Address [address] [place] [address] Care Team Providers Care Carburetor Rebuilder Name Role Phone Stephanie BRUNER, Francis Primary Care Provider Suraj Pham Jr [phone] Allergies No Known Allergies Reason For Referral No Information Medications Medication SIG (Take, Route, Frequency, Duration) Notes Start Date End Date Status Lisinopril 10 MG TAKE 1 TABLET BY QIANA TH EVERY DAY Oral; Duration: 90 Days Active Aspirin EC Low Strength Active metFORMIN HCl 500 MG TAKE 1 TABLET BY MO UTH TWICE A DAY WITH MEALS Oral; Duration: 90 Days Active Atorvastatin Calcium 20 MG TAKE 1 TABLET BY MOUTH EVERY DAY Oral; Duration: 90 Days Not-Taking Magnesium Citrate Ac tive Multivitamin - as directed Orally Not-Taking Vitamin B12 Active Lisinopril-hydroCHLOROthi azide 10-12.5 MG (Prior Auth: Rx Ref#:[id number]) Oral; Duration: 90 Not-Taking MiraLax (colon prep) 17 GM/SCOOP mixed with Gatorade or Crystal Light Orally begin at 5:00 p.m. the day before the procedure; Duration: 1 day 10/20/2021 Active amLODIPine Benzoate 1 MG/ML 5 mL Orally Once a day Activ e Atorvastatin Calcium 20 MG (Prior Auth: Rx Ref#:[id number]) Oral; Duration: 90 Active metFORMIN HCl 500 MG 1 tablet with meals Orally Twice a day Active Immunizations Vaccine Route Administration Date Status Comme nts Influenza Unknown 05/26/2021 Administered Influenza Unknown 06/26/2024 Administered Social History AUDIT-C (Standard) Question Answer Notes Did you have a drink containing alcohol in the p ast year? No Points 0 Interpretation Negative Problems Problem Type SNOMED Code ICD Code Onset Dates Problem Status W/U Status Risk Notes Problem Colon cancer screening (557038529) Colon cancer screening (Z12.11) Active confirmed Problem Pre-procedure evaluation check (437748775) Encounter for other preprocedural examination (Z01.818) Active confirmed Problem Long-term current use of antiplatelet drug (913535231320894 ) Long-term use of aspirin therapy (Z79.82) Active confirmed Problem Long-term current use of drug therapy (240571993) [facility] current use of oral hypoglycemic drug (Z79.84) Active confirmed Problem Personal history of adenomatous and serrated colon polyps (Z86.0101) Active confirmed Vital Signs Temperature 97.3 degrees Fahrenheit 06/26/2025 Blood pressure diastolic 01 mm Hg 06/26/2025 Height 65 in 06/26/2025 Blood pressure systolic 001 mm Hg 06/26/2025 Weight 190.4 lbs 06/26/2025 BMI 31.68 kg/m2 06/26/2025 Encounters Encounter Location Date Provider Diagnosis [facility] [address] [place] [address] 06/26/2025 Suraj Cabrera Jr Colon cancer screening Z12.11 ; Long-term use of aspirin therapy Z79.82 ; terminal gauger current use of oral hypoglycemic drug Z79.84 and Personal history of adenomatous and serrated colon polyps Z86.0101 Assessments Encounter Date Diagnosis (ICD Code) Assessment Notes Treatment Notes Treatment Clinical Notes Section Notes 06/26/2025 Colon cancer screening (ICD-10 - Z12.11) We discussed colonoscopy today. We discussed risks and benefits of the procedure today. She understands these and agrees to proceed. This will be scheduled at her convenience. She is advised to stop aspirin 1 week before the procedure and metformin the day before the procedure. 06/26/2025 Long-term use of aspirin therapy (ICD-10 - Z79.82) We discussed colonoscopy today. We discussed risks and benefits of the procedure today. She understands these and agrees to proceed. This will be scheduled at her convenience. She is advised to stop aspirin 1 week before the procedure and metformin the day before the procedure. 06/26/2025 terminal gauger current use of oral hypoglycemic drug (ICD-10 - Z79.84) We discussed colonoscopy today. We discussed risks and benefits of the procedure today. She understands these and agrees to proceed. This will be scheduled at her convenience. She is advised to stop aspirin 1 week before the procedure and metformin the day before the procedure. 06/26/2025 Personal history of adenomatous and serrated colon polyps (ICD-10 - Z86.0101) We discussed colonoscopy today. We discussed risks and benefits of the procedure today. She understands these and agrees to proceed. This will be scheduled at her convenience. She is advised to stop aspirin 1 week before the procedure and metformin the day before the procedure. Plan Of Treatment Future Test Test Name Order Date COLONOSCOPY 03/11/2015 COLONOSCOPY 10/20/2021 COLONOSCOPY 06/26/2025 Next Appt Details Provider Name:Suraj jensen , 07/29/2025 11:00:00 AM, [address] [place] [address] , [place], [place], [phone], Insurance Providers Payer Name Payer Address Payer Phone Subscriber Number Group Number Insured Name Patient Relationship to Insured Coverage Start Date Coverage End Date [facility] [address] [place] [phone] [id number] MARGARITO QUIROZ Self - patient is the insured Medical (General) History Medical History History ICD Code diabetes mellitus hypertension breast cancer Cystocele with prolapse Hyperlipidemia Colonoscopy 01/30, multiple polyps, 3-yea r follow-up Surgical History Surgery Date(Month/Year) lumpectomy
--- OUTSIDE RECORDS SUMMARY | 2025-07-17 16:57 | XMS_ITS | Patient Health Record ---
Author Organization Francis Brown MD Address [address] [place], [place] [id number] Care Team Providers Care Supervisor Paper Coating Name Role Phone Francis Brown Primary Care Provider [phone] Allergies No Known Allergies Results Component Value Reference Range Notes Urine Culture Reviewed date:09/10/2024 04:44:51 PM Interpretation: Performing Lab:[facility], [address] [place] [id number] Notes/Report: Urine Culture Report Result Urine Culture 10,000 to 50,000 cfu/ml Urine Culture Mixed bacterial cari a characteristic of Urine Culture urogenital contamination. MM tomosynthesis screening B I Reviewed date:10/07/2024 05:21:53 PM Interpretation: Performing Lab: Notes/Report: [facility] [address] [place] [address] Mammography Report Signed with [place] Patient: Sara Freitas MR#: [id number] : 1950 Acct:[id number] Age/Sex: 74 / F ADM Date: 09/10/24 Loc: HO.MAMMO Attending Dr: Francis Brown MD Ordering Physician: Francis Brown MD Results: 2Be nign Findings Date of Service: 09/10/24 Follow Up: 1 Year From Orig ina Mammogram Procedure(s): MM tomosynthesis screening BI Accession Number(s): [id number] cc: Francis Brown MD ADDENDUM ADDENDUM #1 ADDENDUM: The current mammogram has been reviewed and remains BI-RADS as follows OVERALL ASSESSMENT: BI-RADS 2 - Benign Findings RECOMMENDATION: 1 year F/U Electronically signed by: rFida David DO 10/07/2024 03:20 PM EST RP [...] OV> 09/21/242015 DD/ 14 TD/TT: 12/31/24 1528 Digital Marketing Program Manager: [facility] [address] [place] [address] [place] [address] Mammography Report Signed with Addenda Patient: Franklin Freitas MR#: [id number] : 1950 Acct:[id number] Age/Sex: 74 / F ADM Date: 09/10/24 Loc: HO.MAMMO Attending Dr: Francis Brown MD Ordering Physician: Francis Brown MD Results: 2Be nign Findings Date of Service: Follow Up: 1 Year From Orig ina Mammogram Procedure(s): MM tomi osynthesis screening BI Accession Number(s): [id number] cc: Francis Brown MD ADDENDUM ADDENDUM #1 [...] a suspicious palpable abnormality. This patient's infor matevni was entered into a reminder system with a target due date for their next mammogram. Electronically ryan d by: Frida David DO 09/21/2024 08:[address] [facility] Dictated By: Frida Cheema i, DO Signed By: <Electron ically signed by Frida David DO in OV> 09/21/242015 DD/ 1515 TD/TT: 09/10/24 1528 Digital Marketing Program Manager: Reason For Referral No Information Medications Medication SIG (Take, Route, Frequency, Duration) Notes Start Date End Date Status hydroCHLOROthiazide 12.5 MG 1 capsule in the morning Orally Once a day 01/23/2023 Not-Taking Flonase 50 MCG/ACT 1 spray in each nostril Nasally Once a day 10/26/2015 Not-Taking ProAir HFA 108 (90 Base) MCG/ACT 2 puffs as needed Inhalation every 4 hrs 04/13/2015 Not-Taking metFORMIN HCl 500 MG TAKE 1 TABLET BY MOUTH TWICE A DAY WITH MEALS for 90 Active Atorvastatin Calcium 20 MG TAKE 1 TABLET BY MOUTH EVERY DAY Active Lisinopril 10 MG TAKE 1 TABLET BY MOUTH EVERY DAY for 90 Active amLODIPine Besylate 5 MG TAKE 1 TABLET B Y MOUTH EVERY DAY FOR 30 DAYS for 90 Active Aspirin 81 MG 1 tablet Orally Once a day Active Immunizations Vaccine Route Administration [...] High Dose IM Intramuscular 05/21/2024 Administer ed Influenza High Dose IM Intramuscular 06/24/2025 Administer ed Flu Vaccine Unknown 05/26/2014 Pending [...] Status Risk Notes Problem Vitamin D deficiency (20265785) Vitamin D deficiency (E55.9) Active confirmed Problem 96475874 Essential hypert ension (I10) Active confirmed Problem 59955528 Type 2 diabetes mellitus without complication (E11.9) Active confirmed Problem 686469811 Non morbid obesi ty due to excess calories (E66.09) Active confirmed Problem 744862507 History of breas t cancer (Z85.3) Active confirmed Problem 88506125 Type 2 diabetes, controlled, with neuropathy (E11.40) Active confirmed Problem 719475776871668 Carpal tunnel sy ndrome of right wrist (G56.01) Active confirmed Problem 04070356167972 Pharyngeal dysph agia (R13.13) Active confirmed Problem 760671430 Pure hypercholesterolemia (E78.00) Active confirmed Problem 389282728 BMI 37.0-37.9, a dult (Z68.37) Active confirmed Problem 808406468 Arthritis of kne e (M17.10) Active confirmed Problem 82366519864463 History of cardi ac cath (Z98.890) Active confirmed Problem Uterovaginal prolapse (95722673) Cystocele with prolapse (N81.4) Active confirmed Problem 955566151 Age-related inci pient cataract, unspecified laterality (H25.099) Active confirmed Vital Signs Blood pressure diastolic 66 mm Hg 06/24/2025 deysi ght is up 3 pounds since 03-28-25 Height 65.50 in 06/24/2025 weight is up 3 pounds since 03-28-25 Blood pressure systolic 138 mm Hg 06/24/2025 weig ht is up 3 pounds since 03-28-25 Weight 190 lbs 06/24/2025 weight is up 3 pounds since 03-28-25 BMI 31.13 kg/m2 06/24/2025 weight is up 3 pounds since 03-28-25 Encounters Encounter Location Date Provider Diagnosis Francis Brown MD [address] [place] [address] Drive [address] [place] [id number] 09/12/2024 Francis Brown Essential hypertensi on I10 ; Annual physical exam Z00.00 ; History of breast cancer Z85.3 ; Type 2 diabetes mellitus without complication E11.9 ; Pure hypercholesterolemia E78.00 ; Type 2 diabetes, controlled, 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 and Depression screening Z13.31 Francis Brown MD [address] [place] [address] Drive [address] [place] [id number] 03/28/2025 Francis Brown Type 2 diabetes, controlled, 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 ; Pure hypercholesterolemia E78.00 and Essential hypertension I10 Francis Brown MD [address] [place] [address] Drive [address] [place] [id number] 06/24/2025 Francis Brown Skin lesion L98.9 ; Cystocele with prolapse N81.4 and Encounter for administration of vaccine Z23 Francis Brown MD [address] [place] [address] [place] [id number] 11/12/2024 Francis Brown Assessments Encounter Date Diagnosis [...] well on meds, will continue current regiment 06/24/2025 Skin lesion (ICD-10 - L98.9) [place] 06/24/2025 Cystocele with prola pse (ICD-10 - N81.4) [facility] [employer] [facility] 09/12/2024 History of breast cancer (ICD-10 - Z85.3) had mammo 2 days ago 03/28/2025 Pure hypercholesterolemia (ICD-10 - E78.00) doing well on meds, will contiue current regiment 06/24/2025 Encounter for administration of vaccine (ICD-10 - Z23) HD flu vaccine administered 09/12/2024 Type 2 diabetes mellitus without complication [...] skeleton 02/11/2021 Next Appt Details Provider Name:Francis jack, 09/08/2025 07:45:00 AM, [address] [place] [address], Suite [facility], [place], [place], [phone], Provider Name:Francis jack, 09/19/2025 01:30:00 PM, [address] [place] [address], Suite [facility], [place], [place], [phone], Provider Name:Francis jack, 12/30/2025 07:00:00 AM, [address] [place] [address], Suite [facility], [place], [place], [phone], Provider Name:Francis overtonr, 01/05/2026 11:00:00 AM, [address], [address], [place], [place], [phone], Insurance Providers Payer Name Payer Address Payer Phone Subscriber Number Group Number Insured Name Patient Relationship to Insured Coverage Start Date Coverage End Date [employer]AN [address] [place] [phone] [id number] Sara Freitas Self - patient is the insured MEDICARE [facility] [address] [place] [address] [id number] Sara Freitas Self - patient is the insured Medical (General) History Medical History History ICD Code colonoscopy 2002 due 2012; c olonoscopy done 07/24/15 w/Dr. Cabrera tubular adenoma: tubular adenomasncolonocopy 01/26/22 awaiting path he wants repeat colonoscopy in 3 years Surgical History Surgery Date(Month/Year) breast cancer lumpectomy radiation chemo . two positive nodes 2000
--- OUTSIDE RECORDS SUMMARY | 2025-07-17 16:58 | XMS_ITS | Clinical Summary ---
Author Organization [facility] Address [address] [place], [place] [phone] Phone Care Team Providers Care Front Office Help Name Role Phone Pcp, Unknown Primary Care [...] REPLACEMENT [employer] [place] [employer] HMO REPLACEMENT [facility] MEDICARE HMO REPLACEMENT [employer] [place] H[place] REPLACEMENT Care Teams Front Office Help Relationship Specialty Start Date End Date Pcp, Unknown PCP - General 11/04/21 Additional Source Comments The information contained in this document represents components of the legal health record. It is not the complete legal health record.[facility]
[2025-07-25 12:34] VITALS: BMI 31.7
--- NOTE | 2025-07-25 13:14 | P.CONAN_ITS ---
Documented by User: Oralia Hodge NP 07/25/25 13:15 HPI - Anesthesia Eval Consult details Narrative: 74yo F for Colonoscopy PMFSH Active Problems Active Problems: All Active Problems Chronic ankle pain, bilateral (Acute) Osteoarthritis of right knee (Acute) Osteoarthritis of left knee (Acute) Diabetes mellitus (Acute) Past Medical History Medical History HLD (hyperlipidemia) History of cystocele High cholesterol Breast cancer HTN (hypertension) DM type 2 (diabetes mellitus, type 2) Family History Family history of problems with anesthesia: No Surgical History Surgical History Hx of cataract surgery History of partial mastectomy of left breast Hx of colonoscopy (01/2022) History of Problems with Anesthesia: No Social History Social History Housing: House Are you a primary before and after school daycare worker to a significant other at home: No Do you presently have visiting nurse or other home services: No Patient Tobacco Use Status: Never used Tobacco Have you been hit, kicked, punched, or otherwise hurt by someone within the past year? 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 Meds Allergies Allergy/AdvReac Type Severity Reaction Status Date / Time No Known Allergies Allergy Verified 07/29/25 10:03 Home Medications ?Medication ?Instructions ?Recorded ?Confirmed ?Last Taken ?Type aspirin 81 mg tablet,delayed 81 mg PO DAILY 01/21/2209/24/24 07/19/25 History release atorvastatin 20 mg tablet 1 tab PO DAILY 01/21/2207/12 Unknown History metformin 500 mg tablet 500 mg PO BID 01/21/2207/25 Unknown History Vitamin B-12 07/25/25 07/25/25 Unknown H istory amlodipine 5 mg tablet 5 mg PO DAILY 07/25/2507/2507/29/25 History lisinopril 10 mg tablet 10 mg PO DAILY 07/25/2507/1207/29/25 History magnesium citrate 07/25/25 Unknown History Exam Height,Weight and Vital Signs: Height 5 ft 5 in Weight 86.296 kg Assessment and Plan Assessment Anesthesia Assessment: Chart Reviewed Final Anesthetic Review Family History of Problems with Anesthesia: No History of Problems with Anesthesia: No Documented by User: Erica Pinzon MD 07/29/25 10:31 [facility] Past Medical History Medical History HLD (hyperlipidemia) History of cystocele High cholesterol Breast cancer HTN (hypertension) DM type 2 (diabetes mellitus, type 2) Surgical History Surgical History Hx of cataract surgery History of partial mastectomy of left breast Hx of colonoscopy (01/2022) Social History Social History Housing: House Are you a primary before and after school daycare worker to a significant other at home: No Do you presently have visiting nurse or other home services: No Patient Tobacco Use Status: Never used Tobacco Have you been hit, kicked, punched, or otherwise hurt by someone within the past year? 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 Meds Allergies Allergy/AdvReac Type Severity Reaction Status Date / Time No Known Allergies Allergy Verified 07/29/25 10:03 Home Medications ?Medication ?Instructions ?Recorded ?Confirmed ?Last Taken ?Type aspirin 81 mg tablet,delayed 81 mg PO DAILY 01/21/22 1 09/24/24 07/19/25 History release atorvastatin 20 mg tablet 1 tab PO DAILY 01/21/2207/12 Unknown History metformin 500 mg tablet 500 mg PO BID 01/21/2207/25 Unknown History Vitamin B-12 07/25/25 07/25/25 Unknown H istory amlodipine 5 mg tablet 5 mg PO DAILY 07/25/2507/2507/29/25 History lisinopril 10 mg tablet 10 mg PO DAILY 07/25/2507/1207/29/25 History magnesium citrate 07/25/25 Unknown History Exam Airway Mallampati Class: II TM Dist: >3cm Neck ROM: Full Loose/Missing/Broken Teeth: No Heart: RRR Lungs: CTA Assessment and Plan Assessment Anesthesia Assessment: Anesthesia Plan Discussed Final Anesthetic Review NPO: Yes ASA Class: II Final Preanesthetic Review: Meds/Allgs Chart Reviewed, Consent Obtained/Reviewed and Anes Risks/Benef Reviewed Patient Risk: Low Procedure Risk: Low Anesthetic Plan Anesthetic Plan: MAC: Disposition: Standard PACU
[2025-07-29 09:40] VITALS: BMI 31.3
[2025-07-29 09:41] VITALS: BMI 31.3
[2025-07-29] MEDS: Lactated Ringers 1,000 ML 100 ML IVCONT (09:48)
[2025-07-29 10:02] VITALS: BP 132/61; PULSE 91; RESP 18; TEMP 36.6; O2SAT 96
[2025-07-29 10:02] LABS: Glucose, Whole Blood 130 mg/dL (60-115)
--- NOTE | 2025-07-29 11:03 | MHC.SHP ---
Pre-Procedural Eval Section A - 24 Hr Update-Section A only Date of Service: 07/29/25 Section B - Complete if H&P > 30 days Chief Complaint: screening Details of Present Illness: see H&P no changes Relevant Family History (Specify if Yes): No Relevant Social History: None Present Medications: see Short Stay Collaborative assessment Medical History: No relevant PMH History of Previous Operations: No relevant previous surgery Allergies: Allergies Allergy/AdvReac Type Severity Reaction Status Date / Time No Known Allergies Allergy Verified 07/29/25 10:03 Review of Systems Sugical H&P ROS: Negative: Constitution, Cardiovascular, Respiratory, Neurological, Psychiatric, Hem-Onc, Allergic/Immunologic, Gastrointestinal, Genitourinary, Musculoskeletal, Integumentary, Endocrine and Eyes/Ears/Nose/Throat Exam Surgical H&P Exam: Normal: HEENT, Normal: Heart, Normal: Lungs, Normal: Extremities, Normal: Abdomen, Normal: Skin and Normal: Neurological Plan Diagnosis/Plan: Unchanged I have reviewed the history and physical and performed a pertinent physical examination on my patient. No changes have occurred unless specified. Time Spent With Patient Time: Total time managing care of this patient today ____ minutes.
[2025-07-29 11:41] VITALS: BP 111/46; PULSE 81; RESP 16; TEMP 36.9; O2SAT 93
[2025-07-29 12:00] VITALS: BP 121/55; PULSE 73; RESP 16; O2SAT 96
--- NOTE | 2025-07-29 20:50 | OP_ITS ---
DATE OF SERVICE: 07/29/2025 SURGEON: Suraj Cabrera MD INDICATIONS: Colon cancer screening and prior history of adenomatous colon polyps. PREOPERATIVE DIAGNOSIS: POSTOPERATIVE DIAGNOSIS: PROCEDURE PERFORMED: Colonoscopy to the cecum. ESTIMATED BLOOD LOSS: COMPLICATIONS: ANESTHESIA: Monitored anesthesia care. ASSISTANTS: SPECIMENS: DESCRIPTION OF PROCEDURE: A history and physical was performed. The risks and benefits of the procedure were explained to the patient. Informed consent was obtained. The patient was placed in the left lateral decubitus position. A digital rectal exam was performed and was found to be normal. The Olympus pediatric video colonoscope was introduced into the rectum and advanced to the cecum. The cecum was identified by transillumination, palpation, and identification of ileocecal valve. Examination was performed. The scope was removed. She tolerated the procedure well and was returned to the recovery area in stable condition. FINDINGS: The terminal ileum was not examined. The visualized colonic mucosa was normal. The quality of the prep was fair to good with some liquid stool and some small pieces of solid material left in the colon. This was washed and suctioned as best possible. No polyps were identified. There was moderate diverticulosis involving the sigmoid with a few scattered diverticula throughout the remainder of the colon. Retroflexed examination showed some moderate-sized internal hemorrhoids. IMPRESSION: Normal colonoscopy. RECOMMENDATION: 1. Follow up as needed. 2. Repeat colonoscopy could be considered in 5 years pending the results because of the results of this examination. This is optional based on age. MD GISELA Laguna/MICHAEL / [phone]
== END 2025-07-29 12:42 | disposition home or self-care (01) ==
PROVIDERS: PCP Internal Medicine; Visit Provider Internal Medicine Gastroenterology
PROC: 0DJD8ZZ Inspection of Lower Intestinal Tract, Via Natural or Artificial Opening Endoscopic (ICD-10-PCS; CPT 45378; principal; 2025-07-29 11:40)
DX: Z12.11 Encounter for screening for malignant neoplasm of colon (principal); Z86.0101 Personal history of adenomatous and serrated colon polyps; K57.30 Diverticulosis of large intestine without perforation or abscess without bleeding; E11.9 Type 2 diabetes mellitus without complications
CPT/HCPCS: G0105; 82947; J2704